=== PATIENT | female | born 1980 | race Caucasian/White ===

== ENCOUNTER → 2019-05-26 10:39 | Outpatient (CLI) | payer OTHER, SELFPAY ==
--- NOTE | 2019-05-26 10:46 | VDLE_ITS ---
Reason For Study: Swelling/Pain Procedure LEFT Exam performed in department. GSV is normal. A preliminary report was called and/or faxed CFV is compressible, spontaneous, phasic, to Estefany. competent, and demonstrates normal augmentation. FV is compressible, spontaneous, phasic, competent and demonstrates normal augmentation. POP V is compressible, spontaneous, phasic, competent and demonstrates normal augmentation. T/P Trunk is compressible. PTV is compressible. LT PerV is compressible. Interpretation Summary Deep veins of the left lower extremity are patent and compressible segmentally. There is no evidence of left lower extremity deep vein thrombosis. Valvular competence appears intact within the proximal deep venous system on the left . The left greater saphenous vein appears patent and compressible segmentally. Ordering Physician: Carson Allison Referring Physician: Maya Owens M.D. Performed By: Kandi Judge RVT
== END ==
PROVIDERS: Family Provider Internal Medicine; PCP Internal Medicine; Referring Provider Surgery; Visit Provider Surgery
DX: M79.89 Other specified soft tissue disorders (principal); M79.606 Pain in leg, unspecified
CPT/HCPCS: 93971

== ENCOUNTER → 2021-03-05 15:46 | Outpatient (CLI) | payer OTHER, SELFPAY ==
[2021-03-05 17:33] LABS: Absolute Lymphocyte Count 2.64 X10^3/uL (0.83-4.51); Basophil# 0.03 X10^3/uL; Basophil% 0.4 % (0-1); Eosinophil# 0.08 X10^3/uL; Eosinophils% 1.1 % (0-5); Lymphocyte # 2.64 X10^3/ul (0.83-4.51); Lymphocyte % 35.6 % (19-41); Mean Corp Hgb Conc 32.6 g/dL (32-36); Mean Corpuscular Volume 98.4 fL (81-99); Mean Platelet Vol. 12.2 fl (6.2-12.0); Monocyte# 0.65 X10^3/uL; Monocyte% 8.8 % (0-10); NRBC Flagged by Analyzer 0 % (0-5); Neutrophil % 53.8 % (47-70); Platelet Count 228 K/mm3 (150-450); RBC Distribution Width CV 12.9 % (11.6-14.6); RBC Distribution Width SD 46.5 fl (35.1-43.9); Red Blood Count 4.37 M/mm3 (4.2-5.4); White Blood Count 7.4 K/mm3 (4.4-11.0)
[2021-03-05 18:03] LABS: Valproic Acid (Depakene) Level 78 ug/mL (50-100)
[2021-03-05 18:07] LABS: AST(SGOT) 14 U/L (15-37); Alanine Aminotransfer ALT/SGPT 24 U/L (13-56); Albumin, Serum 3.9 g/dL (3.2-5.0); Alkaline Phosphatase 32 U/L (45-117); Bilirubin, Direct 0.19 mg/dL (0.00-0.30); Protein, Total 7.9 g/dL (6.4-8.2)
== END ==
PROVIDERS: PCP Internal Medicine; Referring Provider Psychiatry & Neurology Clinical Neurophysiology; Visit Provider Psychiatry & Neurology Clinical Neurophysiology
DX: G40.909 Epilepsy, unspecified, not intractable, without status epilepticus (principal)
CPT/HCPCS: 36415; 80076; 80164; 85025

== ENCOUNTER → 2022-02-19 | Outpatient (CLI) | payer OTHER, SELFPAY ==
[2022-02-19 13:37] LABS: Absolute Lymphocyte Count 2.75 X10^3/uL (0.83-4.51); Absolute Neutrophil Count 3.5 X10^3/uL (2.0-7.7); Basophil# 0.05 X10^3/uL; Basophil% 0.7 % (0-1); Eosinophil# 0.09 X10^3/uL; Eosinophils% 1.3 % (0-5); Hematocrit 42.5 % (37-47); Hemoglobin 14.2 g/dL (12.0-15.0); Lymphocyte # 2.75 X10^3/ul (0.83-4.51); Lymphocyte % 39.7 % (19-41); Mean Corp Hgb Conc 33.4 g/dL (32-36); Mean Corpuscular Hgb 32.9 pg (27.0-32.0); Mean Corpuscular Volume 98.6 fL (81-99); Mean Platelet Vol. 11.2 fl (6.2-12.0); Monocyte# 0.57 X10^3/uL; Monocyte% 8.2 % (0-10); NRBC Flagged by Analyzer 0 % (0-5); Neutrophil # 3.45 X10^3/uL (2.7-7.7); Neutrophil % 49.8 % (47-70); Platelet Count 241 K/mm3 (150-450); RBC Distribution Width CV 12.7 % (11.6-14.6); RBC Distribution Width SD 46.4 fl (35.1-43.9); Red Blood Count 4.31 M/mm3 (4.2-5.4); White Blood Count 6.9 K/mm3 (4.4-11.0)
[2022-02-19 14:05] LABS: AST(SGOT) 19 U/L (15-37); Alanine Aminotransfer ALT/SGPT 27 U/L (13-56); Albumin, Serum 3.6 g/dL (3.2-5.0); Alkaline Phosphatase 28 U/L (45-117); Bilirubin, Direct 0.18 mg/dL (0.00-0.30); Globulin 3.9 g/dL (2.2-4.2); Protein, Total 7.5 g/dL (6.4-8.2); Valproic Acid (Depakene) Level 89 ug/mL (50-100)
== END | disposition home or self-care (01) ==
PROVIDERS: PCP Internal Medicine; Visit Provider Psychiatry & Neurology Clinical Neurophysiology
DX: G40.909 Epilepsy, unspecified, not intractable, without status epilepticus (principal)
CPT/HCPCS: 36415; 80076; 80164; 85025

== ENCOUNTER → 2023-01-27 | Outpatient (CLI) | payer MEDICAID, SELFPAY ==
[2023-01-27 10:43] LABS: Hematocrit 44.8 % (37-47); Hemoglobin 14.7 g/dL (12.0-15.0); Mean Corp Hgb Conc 32.8 g/dL (32-36); Mean Corpuscular Hgb 32.6 pg (27.0-32.0); Mean Corpuscular Volume 99.3 fL (81-99); Mean Platelet Vol. 11.5 fl (6.2-12.0); Platelet Count 261 K/mm3 (150-450); RBC Distribution Width CV 13.2 % (11.6-14.6); RBC Distribution Width SD 48.8 fl (35.1-43.9); Red Blood Count 4.51 M/mm3 (4.2-5.4); White Blood Count 7.7 K/mm3 (4.4-11.0)
[2023-01-27 11:05] LABS: Valproic Acid (Depakene) Level 56 ug/mL (50-100)
[2023-01-27 11:07] LABS: ALB/GLOB Ratio 0.8 RATIO (0.9-2.4); AST(SGOT) 18 U/L (15-37); Alanine Aminotransfer ALT/SGPT 24 U/L (13-56); Albumin, Serum 3.6 g/dL (3.2-5.0); Alkaline Phosphatase 26 U/L (45-117); Anion Gap 2 (5-15); BUN 17 mg/dL (7-18); BUN/Creat Ratio 21.7 RATIO (10-20); Calcium,Total 9.4 mg/dL (8.5-10.1); Chloride 106 mmol/L (98-107); Creatinine, Serum 0.78 mg/dL (0.55-1.02); EST Glomerular Filtration Rate 85 mL/min (>60); Est Glom Filt Rate - Afr Amer 103 mL/min (>60); Globulin 4.3 g/dL (2.2-4.2); Glucose 93 mg/dL (74-106); Potassium 3.9 mmol/L (3.5-5.1); Protein, Total 7.9 g/dL (6.4-8.2); Sodium Level 139 mmol/L (136-145)
== END | disposition home or self-care (01) ==
LOC: LAB 10:07
PROVIDERS: PCP Internal Medicine; Referring Provider Psychiatry & Neurology Clinical Neurophysiology; Visit Provider Psychiatry & Neurology Clinical Neurophysiology
DX: G40.409 Other generalized epilepsy and epileptic syndromes, not intractable, without status epilepticus (principal)
CPT/HCPCS: 36415; 80053; 80164; 85027

== ENCOUNTER 2023-02-01 17:42 | Emergency (ER) | payer MEDICAID, SELFPAY ==
[2023-02-01 17:43] VITALS: BP 138/110; PULSE 106; RESP 18; TEMP 36.7; O2SAT 100; BMI 20.5
--- NOTE | 2023-02-01 18:21 | CT_ITS ---
STUDY: CT ABDOMEN AND PELVIS WITHOUT CONTRAST REASON FOR EXAM: Female, 42 years old. flank pain RADIATION DOSAGE (If Supplied By Facility): CTDIvol = ( 6.15 ) mGy, DLP = ( 312.07 ) mGycm TECHNIQUE: Transaxial images were obtained from the dome of the diaphragm to the symphysis pubis without oral contrast, and without intravenous contrast. Sagittal and coronal images were reconstructed. Individualized dose optimization techniques were used for this CT. COMPARISON: 06/21/2012 CT abdomen and pelvis FINDINGS: The visualized lung bases are unremarkable. The visualized portions of the heart are within normal limits. Normal liver. Gallbladder not identified. Normal spleen. Normal pancreas. Normal bilateral adrenal glands. Normal right kidney. Normal left kidney. Normal visualized stomach. Normal small intestine. Normal colon. The appendix is visualized and appears normal. Normal abdominal aorta. Normal inferior vena cava. Normal retroperitoneum. Bladder is decompressed with a Waggoner catheter. Normal abdominal wall. Normal osseous structures. CT/Abdomen/Pelvis without Cont IMPRESSION: No radiodense urolithiasis noted. Electronically Signed: Moe Coulter MD at 20:37 EDT Reading Location ID and State: [address] [place] [address] , Service support ,
--- NOTE | 2023-02-01 18:22 | EX.ED.DYSGE1 ---
HPI History of Present Illness Chief Complaint: Complaint Informant: patient Onset/Context/Timing Onset: Yesterday Narrative Narrative: Patient presents secondary to urinary symptoms and unable to urinate. She states yesterday she had burning with urination. She was seen by a foster care social worker who sent her urine for culture and she was given Azo. Today she states she has pain in her low back and is unable to urinate. No fever or chills. [facility] Medical History (Updated 02/01/23 @ 21:[address] Gala Hernandez MD) Epilepsy Home Medications benzonatate 200 mg capsule 200 mg PO TID PRN cough #20 caps 08/05/22 [Rx Last Taken Unknown] sulfamethoxazole 800 mg-trimethoprim 160 mg tablet (Bactrim DS) 1 tab PO BID #6 tabs 02/01/23 [Rx Last Taken Unknown] Allergy/AdvReac Type Severity Reaction Status Date / Time azithromycin Allergy Other Verified 02/01/23 17:45 [From Zithromax Z-Gadiel] metoclopramide HCl Allergy Other Verified 02/01/23 17:45 [From Reglan] mold Allergy Other Verified 02/01/23 17:45 clavulanic acid AdvReac Nausea/Vom/ Verified 02/01/23 17:45 [From Augmentin] Diarrhea codeine AdvReac Nausea/Vom/ Verified 02/01/23 17:45 Diarrhea Surgical History H/O tubal ligation Social History Smoking Status: Never smoker ROS ROS ED Constitutional Constitutional ED: Denies chills or fever(s) Eyes Eyes: Denies change in vision or discharge from eye(s) ENT ENT ED: Denies discharge from eye(s), rhinorrhea or sore throat Cardiovascular Cardiovascular: Denies chest pain or palpitations Respiratory/Chest Respiratory/Chest: Denies cough or dyspnea Gastrointestinal Gastrointestinal: Reports abdominal pain; Denies diarrhea, nausea or vomiting Genitourinary Genitourinary ED: Reports difficulty urinating and dysuria Musculoskeletal Musculoskeletal: Reports back pain; Denies extremity pain Integumentary Denies Abrasions or rash Neurologic Neurologic: Denies headache(s) or weakness Psychiatric Psychiatric: Denies anxiety or depression Allergic/Immunologic Allergic/Immunologic ED: Denies lip swelling or urticaria EXAM Physical Exam Const Vital Signs: 02/01/23 17:43 Temperature 98.1 F Temperature Source Temporal Pulse Rate 106 H Respiratory Rate 18 Blood Pressure 138/110 H Blood Pressure Mean 119 Pulse Ox 100 Oxygen Delivery Method Room Air Positive well nourished and well developed General Appearance ED: well developed HEENT Reports normocephalic and head/scalp atraumatic Eyes PERRL and EOMs intact bilaterally Neck supple Chest Wall inspection of chest normal and palpation of chest normal Resp normal respiratory effort and clear to auscultation bilaterally Cardio regular rate and regular rhythm GI GI Narrative: Suprapubic tenderness to palpation. Palpation: soft Extremity normal to inspection Neuro oriented x3 and no sensory deficits noted Sensorium / Orientation: alert Motor Exam: strength 5/5 throughout Psych Mood & Affect: anxious Skin no rashes or lesions noted MDM MDM MDM Narrative Medical decision making narrative: Waggoner catheter was placed by nursing staff due to concern for urinary retention. Nursing staff states he only got 100 220 cc of urine out. Labwork obtained to evaluate for leukocytosis, anemia, and electrolyte derangement. Urinalysis obtained to evaluate for infection/hematuria. CT flank obtained to evaluate for pyelonephritis or kidney stone. Patient was given Toradol for pain. Lab Data Attestation: I reviewed the patient's lab results. Labs: Laboratory Results - last 24 hr 02/01/23 02/01/23 02/01/23 06:50 06:50 06:50 WBC 11.0 RBC 4.30 Hgb 14.0 Hct 41.5 MCV 96.5 MCH 32.6 H MCHC 33.7 RDW Std Deviation 46.7 H RDW Coeff of David 13.2 Plt Count 248 MPV 11.6 Immature Gran % (Auto) 0.500 Neut % (Auto) 61.6 Lymph % (Auto) 26.4 Bledsoe % (Auto) 10.2 H Eos % (Auto) 0.8 Baso % (Auto) 0.5 Absolute Neuts (auto) 6.8 Absolute Lymphs (auto) 2.90 Nucleated RBC % 0 Sodium 138 Potassium 3.5 Chloride 103 Carbon Dioxide 26.0 Anion Gap 9 BUN 15 Creatinine 0.80 Estim Creat Clear Calc 86.20 Est GFR (MDRD) Af Amer 101 Est GFR (MDRD) Non-Af 83 BUN/Creatinine Ratio 18.8 Glucose 101 Calcium 9.7 Serum , Qual NEGATIVE Urine Color Urine Clarity Urine pH Ur Specific Bern Urine Protein Urine Glucose (UA) Urine Ketones Urine Occult Blood Urine Nitrite Urine Bilirubin Urine Urobilinogen Ur Leukocyte Esterase Urine RBC Urine WBC Ur Squamous Epith Cells Urine Bacteria Urine Mucus 02/01/23 18:35 WBC RBC Hgb Hct MCV MCH MCHC RDW Std Deviation RDW Coeff of David Plt Count MPV Immature Gran % (Auto) Neut % (Auto) Lymph % (Auto) Bledsoe % (Auto) Eos % (Auto) Baso % (Auto) Absolute Neuts (auto) Absolute Lymphs (auto) Nucleated RBC % Sodium Potassium Chloride Carbon Dioxide Anion Gap BUN Creatinine Estim Creat Clear Calc Est GFR (MDRD) Af Amer Est GFR (MDRD) Non-Af BUN/Creatinine Ratio Glucose Calcium Serum , Qual Urine Color Yellow Urine Clarity Sl. Cloudy Urine pH 8.0 Ur Specific Bern 1.015 Urine Protein 30 H Urine Glucose (UA) Normal Urine Ketones Negative Urine Occult Blood 50 H Urine Nitrite Negative Urine Bilirubin Negative Urine Urobilinogen Normal Ur Leukocyte Esterase 100 H Urine RBC 0-5 SEEN Urine WBC 10-25 SEEN Ur Squamous Epith Cells 0 SEEN Urine Bacteria 1+ Urine Mucus 0 SEEN Radiography Diagnostic Testing: Clinical Impression(s) from Imaging Studies Abdomen/Pelvis CT 02/01/23 18:21 IMPRESSION: No radiodense urolithiasis noted. Electronically Signed: Moe Coulter MD at 20:37 EDT Reading Location ID and State: [address] [place] [address] , Service support , Treatment and Re-Evaluation :: CBC and chemistry studies are unremarkable. Renal function is normal. test negative. Urinalysis does reveal infection with 10-25 white cells and 1+ bacteria. CT flank reveals no acute findings. Test results are discussed with the patient. Waggoner catheter will be removed. We will treat her with a 3-day course of Bactrim, first dose given here. She was advised that if she develops urinary retention she may need to return for a Waggoner catheter. She voices understanding and agreement. Discharge Plan Triage Chief Complaint: Complaint ED Provider: Gala Hernandez Dx/Rx/DC Orders Clinical Impression: UTI (urinary tract infection) Instructions: ED Cystitis Female Adult Prescriptions: New sulfamethoxazole-trimethoprim [Bactrim DS] 800-160 mg tablet 1 tab PO BID Qty: 6 0RF No Action benzonatate 200 mg capsule 200 mg PO TID PRN (Reason: cough) Qty: 20 0RF Primary Care Provider: Maya Owens Referrals: Maya Owens MD [Primary Care Provider] - 1 Week Disposition Disposition: Home, Self Care
[2023-02-01 18:41] LABS: Mucous, Urine 0 SEEN /hpf (<or=2+); Squamous Epithelial Cells - UA 0 SEEN /hpf (5-10)
[2023-02-01 18:45] LABS: Color, Urine Yellow (Yellow); Glucose, Dipstick Normal (Normal); Ketone-Dipstick Negative (Negative); Leukocyte Esterase-Dipstick 100 /ul (Negative); Nitrite-Dipstick Negative (Negative); Occult Blood-Urine 50 /ul (Negative); Protein-Dipstick 30 mg/dl (Negative); Specific Gravity, Urine 1.015 (1.002-1.030); Urine Bilirubin Dipstick Negative (Negative); Urine Clarity Sl. Cloudy (Clear); Urine Urobilinogen Normal (Normal)
[2023-02-01] MEDS: Ketorolac 30 MG/ML Syringe IV (18:51)
[2023-02-01] MEDS: 0.9% Normal Saline 1,000 ML 150 ML IV (18:52)
[2023-02-01 18:53] LABS: Bacteria 1+ /hpf (None Seen); Red Blood Cells-Urine 0-5 SEEN /hpf (0-5); White Blood Cells 10-25 SEEN /hpf (0-5)
[2023-02-01 19:07] LABS: Absolute Neutrophil Count 6.8 X10^3/uL (2.0-7.7); Basophil# 0.06 X10^3/uL; Basophil% 0.5 % (0-1); Eosinophil# 0.09 X10^3/uL; Eosinophils% 0.8 % (0-5); Hematocrit 41.5 % (37-47); Lymphocyte % 26.4 % (19-41); Mean Corp Hgb Conc 33.7 g/dL (32-36); Mean Corpuscular Hgb 32.6 pg (27.0-32.0); Mean Corpuscular Volume 96.5 fL (81-99); Mean Platelet Vol. 11.6 fl (6.2-12.0); Monocyte# 1.12 X10^3/uL; Monocyte% 10.2 % (0-10); NRBC Flagged by Analyzer 0 % (0-5); Neutrophil # 6.77 X10^3/uL (2.7-7.7); Neutrophil % 61.6 % (47-70); Platelet Count 248 K/mm3 (150-450); RBC Distribution Width CV 13.2 % (11.6-14.6); RBC Distribution Width SD 46.7 fl (35.1-43.9)
[2023-02-01 19:27] LABS: Anion Gap 9 (5-15); BUN 15 mg/dL (7-18); BUN/Creat Ratio 18.8 RATIO (10-20); Calcium,Total 9.7 mg/dL (8.5-10.1); Chloride 103 mmol/L (98-107); EST Glomerular Filtration Rate 83 mL/min (>60); Est Glom Filt Rate - Afr Amer 101 mL/min (>60); Glucose 101 mg/dL (74-106); Potassium 3.5 mmol/L (3.5-5.1); Sodium Level 138 mmol/L (136-145)
[2023-02-01 19:30] LABS: Internal QC Validated? YES +Cl - CLEAR BKGD; Pregnancy, Serum, hCG Quali. NEGATIVE Negative
[2023-02-01 19:42] VITALS: RESP 16
[2023-02-01 21:42] VITALS: BP 127/83
[2023-02-01] MEDS: Smz/Tmp Ds Tablet 1 TABLET PO (21:46)
== END 2023-02-01 21:58 | disposition home or self-care (01) ==
PROVIDERS: Emergency Provider Emergency Medicine; PCP Internal Medicine; Visit Provider Emergency Medicine
DX: N39.0 Urinary tract infection, site not specified (principal); R30.0 Dysuria
CPT/HCPCS: 74176; 80048; 81001; 84703; 85025; 87077; 87086; 87088; 87186; 96361; 96374; 99284; J7030

== ENCOUNTER → 2023-05-27 | Outpatient (CLI) | payer MEDICAID, SELFPAY ==
[2023-05-30 21:07] LABS: Clam <0.10 kU/L (Class 0); Codfish <0.10 kU/L (Class 0); Corn <0.10 kU/L (Class 0); Egg, White <0.10 kU/L (Class 0); Milk (Cow) 0.22 kU/L (Class 0/I); Peanut <0.10 kU/L (Class 0); SCALLOP <0.10 kU/L (Class 0); SESAME SEED <0.10 kU/L (Class 0); Shrimp <0.10 kU/L (Class 0); Soybean <0.10 kU/L (Class 0); Tomato <0.10 kU/L (Class 0); Walnut, (Food) <0.10 kU/L (Class 0); Wheat <0.10 kU/L (Class 0)
== END | disposition home or self-care (01) ==
PROVIDERS: PCP Internal Medicine; Referring Provider Otolaryngology; Visit Provider Otolaryngology
DX: T78.40XA Allergy, unspecified, initial encounter (principal); X58.XXXA Exposure to other specified factors, initial encounter
CPT/HCPCS: 36415; 86003

== ENCOUNTER 2023-11-13 06:49 | Day surgery (SDC) | payer MEDICAID, SELFPAY ==
--- NOTE | 2023-11-11 13:58 | PCM.HP.BLA ---
History and Physical Date of Admission: 11/13/23 Pre-Op History and Physical ? HPI: The patient is a 43 year old female presenting for pre-operative visit. She is scheduled for Hysteroscopy D&C and polypectomy with endometrial ablation, for AUB, endometrial polyps on 11/13/23. Procedure discussed along with risks, benefits and complications. Other alternatives discussed for management. Consent form signed? Yes. ? ? PAST MEDICAL HISTORY PAST MEDICAL HISTORY Diagnosis Date ? Abdominal pain, unspecified site ? ? Acute pharyngitis ? ? Dysthymic disorder ? ? depression/anxiety ? [place] mal seizures 1987 ? Dr. Cagle (neurologist)--[place] ? Unspecified constipation ? ? ? PAST SURGICAL HISTORY PAST SURGICAL HISTORY Procedure Laterality Date ? ANORECTAL MANOMETRY ? 10/14/2022 ? APPENDECTOMY ? 03/26/2012 ? [facility] ? COLONOSCOPY SCREENING ? 02/22/2021 ? Tubular adenoma ? EGD W/O [facility] SPEC VARICIES INJ ? 02/22/2021 ? Normal ? ESOPHAGOGASTRODUODENOSCOPY TRANSORAL DIAGNOSTIC ? 01/26/2013 ? EGD ? LAPAROSCOPY DIAGNOSTIC ? 03/04/2011 ? mild endometriosis, Dr Li, [facility] ? LAPS SURG CHOLECYSTECTOMY W/CHOLANGIOGRAPHY ? 06/29/2010 ? PAST SURGICAL HISTORY OF ? ? ? wisdom teeth x 4 ? PAST SURGICAL HISTORY OF ? age 25 ? cataract surgery bilateral ? PAST SURGICAL HISTORY OF ? ? ? abnormal cells on cervix ? PAST SURGICAL HISTORY OF ? 6 mos old ? tubes put in ears ? SALPINGECTOMY ? 10/2017 ? Laparoscopic B/l salpingectomy ? ? ? CURRENT MEDICATIONS Current Outpatient Medications Medication Sig Dispense Refill ? MULTIVITAMIN ORAL Take by mouth. ? ? ? divalproex DR (DEPAKOTE) 250 mg EC tablet 2 TABLETS (500 MG ) IN THE AM and 1 tablet (250mg) at night. ? fluticasone (FLONASE) 50 mcg/actuation nasal spray Use 2 Sprays in each nostril once daily. Rinse mouth after use. For nasal congestion and drainage (Patient not taking: Reported on 10/23/2023) 1 Each 0 ? dextromethorphan-guaiFENesin 5-50 mg/5 mL liqd Take 10-20 mL by mouth four times a day as needed. for cough (Patient not taking: Reported on 10/23/2023) 118 mL 1 ? phenazopyridine (PYRIDIUM) 200 mg tablet Take 1 tablet by mouth three times daily as needed. (Patient not taking: Reported on 05/08/2023) 9 tablet 0 ? divalproex DR (DEPAKOTE) 250 mg EC tablet Take 250 mg by mouth twice daily. (Patient not taking: Reported on 10/23/2023) ? ? ? No current facility-administered medications for this visit. ? ? ALLERGIES: Augmentin [Amoxicillin-Pot Clavulanate], Codeine, Latex, Mold, and Z Gadiel [Azithromycin] ? PERSONAL HISTORY: SOCIAL HISTORY Social History ? Tobacco Use ? Smoking status: Never ? Smokeless tobacco: Never Vaping Use ? Vaping Use: Never used Substance Use Topics ? Alcohol use: No ? Drug use: No ? FAMILY HISTORY: FAMILY HISTORY FAMILY HISTORY Problem Relation Age of Onset ? Diabetes Mother ? ? Anxiety disorder Mother ? ? Heart Father ? ? A Fib ? Heart Attack Father ? ? other (Bladder cancer) Father ? ? No Known Problems Sister ? ? No Known Problems Sister ? ? Cancer Maternal Uncle ? ? stomach ? Ischemic Heart Disease Maternal Uncle ? ? Hypertension Maternal Uncle ? ? Colon Cancer No Family History ? ? ? REVIEW OF SYMPTOMS: negative except as noted above PHYSICAL EXAMINATION: ? VITALS: Blood pressure 102/64, weight 137 lb (62.1 kg), last menstrual period 10/03/2023. ? GENERAL: The patient is well nourished, well hydrated in no acute distress. , The patient is oriented to time, place, and person. NECK: full range of motion ? ? IMPRESSION: 43yo with AUB, endometrial polys, h/o Endometriosis seen at time of salpingectomy ? PLAN: hysteroscopy, D&C, polypectomy, Venecia endometrial ablation. ? Pt has been counseled on risks/benefits and alternatives of surgery including but not limited to anesthesia, bleeding, infection, uterine perforation with subsequent injury to pelvic structures including bowel, bladder, ureters and vessels. Pt wishes to proceed with surgery at this time. ? Discussed with endometriosis recommend Hormonal suppression with IUD or oral etc- pt declining. Discussed if pain at later date would encourage hormonal suppression. ? Pre and post op instructions reviewed ? I have reviewed and updated past medical and surgical history, medications and allergies Ada Salas MD Office Visit on 11/05/2023 Office Visit on 11/05/2023 Note shared with patient
[2023-11-13] VITALS (9 sets, daily range): BP systolic 82–103; BP diastolic 52–71; PULSE 64–85; RESP 16–18; TEMP 36.2–37.1; O2SAT 94–100; BMI 21.9
--- OUTSIDE RECORDS SUMMARY | 2023-11-13 06:56 | XMS RPT_ITS | CCD ---
Author Name Unknown Address [address] [place] [address] Organization [facility] Care Team Providers Care Voice Engineer Name Role Phone Mirella Zendejas MD Primary Care Provider TALAMPAS, MIRELLA D Primary Care Unavailable TALAMPAS, MIRELLA D Primary Care Unavailable ADA GALVAN Attending Unavail able TALAMPAS, MIRELLA D Primary Care Unavailable DINAH HAMILTON Attending Unavailable BLANCHE LEON Referring Unavailable TALAMPAS, MIRELLA D Primary Care Unavailable TALAMPAS, MIRELLA D Primary Care Unavailable RUDY PARISH Attending Unavailable TALAMPAS, MIRELLA D Primary Care Unavailable ADA GALVAN Attending Unavail able TALAMPAS, MIRELLA D Primary Care Unavailable ELBA, SHIRA Referring Unavailable TALAMPAS, MIRELLA D Primary Care Unavailable RUDY PARISH Attending Unavailable TALAMPAS, MIRELLA D Primary Care Unavailable ABIEL BARBOSA Attending Unavailable RUDY PARISH Referring Unavailable TALAMPAS, MIRELLA D Primary Care Unavailable VANDANA JANE Referring Unavailable TALAMPAS, MIRELLA D Primary Care Unavailable ADA GALVAN Referring Unavail able TALAMPAS, MIRELLA D Primary Care Unavailable GEMA CASAS Attending Unavailable TALAMPAS, MIRELLA D Primary Care Unavailable ADA GALVAN Attending Unavail able ADA GALVAN Attending Unavail able TALAMPAS, MIRELLA D Primary Care Unavailable TALAMPAS, MIRELLA D Primary Care Unavailable MARI ANDINO Attending Unavailable TALAMPAS, MIRELLA D Primary Care Unavailable ELBA, SHIRA Attending Unavailable TALAMPAS, MIRELLA D Primary Care Unavailable ELBA, SHIRA Referring Unavailable TALAMPAS, MIRELLA D Primary Care Unavailable DINAH HAMILTON Referring Unavailable TALAMPAS, MIRELLA D Primary Care Unavailable ELBA, SHIRA Referring Unavailable RAMON ARREOLAEE Attending Unavailable TALAMPAS, MIRELLA D Primary Care Unavailable RUDY PARISH Attending Unavailable TALAMPAS, MIRELLA D Primary Care Unavailable MARAH, RUDY Referring Unavailable TALAMPAS, MIRELLA D Primary Care Unavailable MARAH, RUDY Referring Unavailable Allergies Allergy Classification Reported Allergen(s) Allergy Type Date of Onset Reaction(s) Facility (20 sources) Amoxicillin / Clavulanate; Translations: [AMOXICILLIN-POT CLAVULANATE] Drug Allergy 12-11-2015 GI Upset [facility] (20 sources) Azithromycin; Translations: [AZITHROMYCIN] Drug Allergy 09-16-2015 Other: See Comments [facility] (20 sources) Codeine; Translations: [CODEINE] Drug Allergy 02-04-2013 Vomiting [facility] Work Phone: (20 sources) Latex; Translations: [LATEX] Drug Allergy 06-21-2020 Rash [facility] (20 sources) Mold Extract; Translations: [MOLD] Drug Allergy 09-12-2010 Unknown [facility] Medications Current Medications Medication Drug Class(es) Dates Sig (Normalized) Sig (Original) amoxicillin 500 mg oral capsule (3 sources) Penicillin-class Antibacterial Start: 04-16-2023 End: 04-23-2023 amoxicillin (AMOXIL) 500 mg capsule Take 1 capsule by mouth three times daily for 7 days. FOR 7 DAYS. 21 capsule 0 04/16/2023 04/23/2023 Active Completed/Discontinued Medications Medication Drug Class(es) Dates Sig (Normalized) Sig (Original) benzonatate 100 mg oral capsule (3 sources) Non-narcotic Antitussive Start: 10-03-2023 End: 10-13-2023 take 2 capsules by mouth three times daily as needed benzonatate (TESSALON PERLE) 100 mg capsule Indications: Sinobronchitis Take 2 capsules by mouth three times a day as needed for up to 10 days. 60 capsule 0 10/03/2023 10/07/2023 Discontinued Problems Active Problems Problem Classification Problem Date Documented Da te Episodic/Chronic Epilepsy; convulsions (20 sources) Seizure disorder; Translations: [Epilepsy, unspecified, not intractable, without status epilepticus] Onset: 07-13-2010 07-13-2010 Chronic Menstrual disorders (1 source) Menometrorrhagia; Translations: [Excessive and frequent menstruation with irregular cycle] 05-07-2023 Chronic Mood disorders (20 sources) Dysthymia; Translations: [Dysthymic disorder] 10-22-2021 Chronic Nausea and vomiting (2 sources) Nausea; Translations: [Nausea] Episodic Nephritis; nephrosis; renal sclerosis (1 source) Isolated proteinuria with specified morphological lesion; Translations: [Isolated proteinuria with unspecified morphologic lesion] Chronic Nonmalignant breast conditions (1 source) Breast finding ; Translations: [Dense breast tissue] 06-09-2023 Episodic Other female genital disorders (1 source) Abnormal uterine bleeding; Translations: [Abnormal uterine and vaginal bleeding, unspecified] 05-07-2023 Chronic Other female genital disorders (1 source) Vaginal odor; Translations: [Other specified noninflammatory disorders of vagina] Episodic Other female genital disorders (1 source) Pruritus of vagina; Translations: [Other specified noninflammatory disorders of vagina] Episodic Other female genital disorders (1 source) Lesion of vulva; Translations: [Other specified noninflammatory disorders of vulva and perineum] Episodic Other female genital disorders (1 source) Polyp of corpus uteri; Translations: [Polyp of corpus uteri] 05-07-2023 Episodic Other gastrointestinal disorders (20 sources) Irritable bowel syndrome; Translations: [Irritable bowel syndrome without diarrhea] Onset: 11-24-2008 11-24-2008 Chronic Other gastrointestinal disorders (6 sources) Diarrhea; Translations: [Diarrhea, unspecified] Episodic Other gastrointestinal disorders (2 sources) Smearing feces; Translations: [Fecal smearing] Episodic Other gastrointestinal disorders (3 sources) Loose stool; Translations: [Other fecal abnormalities] Episodic Other gastrointestinal disorders (1 source) Bloating symptom; Translations: [Abdominal distension (gaseous)] Episodic Other lower respiratory disease (2 sources) Cough; Translations: [Acute cough] 10-03-2023 Episodic Other skin disorders (1 source) Skin lesion; Translations: [Disorder of the skin and subcutaneous tissue, unspecified] Episodic Other skin disorders (1 source) Superficial folliculitis; Translations: [Follicular disorder, unspecified] Episodic Other upper respiratory disease (1 source) Congestion of nasal sinus; Translations: [Nasal congestion] 10-07-2023 Episodic Other upper respiratory infections (1 source) Chronic sinusitis; Translations: [Chronic sinusitis, unspecified] 10-03-2023 Chronic Other upper respiratory infections (1 source) Sore throat symptom; Translations: [Acute pharyngitis, unspecified] 10-07-2023 Episodic Skin and subcutaneous tissue infections (1 source) Furuncle of groin; Translations: [Furuncle of groin] Episodic Unclassified (1 source) Acute cough; Translations: [Acute cough] Onset: 10-03-2023 Past or Other Problems Problem Classification Problem Date Documented Da te Episodic/Chronic Abdominal pain (20 sources) Abdominal pain; Translations: [Unspecified abdominal pain] Onset: 04-05-2008 11-24-2008 Episodic Cardiac dysrhythmias (20 sources) Palpitations; Translations: [Palpitations] Onset: 01-29-2012 10-22-2021 Episodic Genitourinary symptoms and ill-defined conditions (20 sources) Blood in urine; Translations: [Hematuria, unspecified] Onset: 10-16-2020 10-16-2020 Episodic Headache; including migraine (20 sources) Chronic daily headache; Translations: [Chronic daily headache] Onset: 07-13-2010 07-13-2010 Episodic Other connective tissue disease (20 sources) Female pelvic floor dysfunction; Translations: [Other specified disorders of muscle] Onset: 10-25-2022 Episodic Other female genital disorders (1 source) Other specified noninflammatory disorders of vagina; Translations: [Vaginal odor] Onset: 01-31-2023 Episodic Other gastrointestinal disorders (20 sources) Constipation; Translations: [Constipation, unspecified] Onset: 04-05-2008 11-24-2008 Episodic Other gastrointestinal disorders (20 sources) Complete fecal incontinence; Translations: [Full incontinence of feces] Onset: 10-25-2022 Episodic Other gastrointestinal disorders (1 source) Other fecal abnormalities; Translations: [Loose stools] Onset: 12-13-2022 Episodic Other screening for suspected conditions (not mental disorders or infectious disease) (5 sources) Patient encounter status; Translations: [Encounter for screening mammogram for malignant neoplasm of breast] Onset: 06-09-2023 Episodic Other skin disorders (20 sources) Eruption; Translations: [Rash and other nonspecific skin eruption] Onset: 04-05-2008 11-24-2008 Episodic Ovarian cyst (4 sources) Cyst of left ovary; Translations: [Unspecified ovarian cyst, left side] Onset: 01-31-2023 Episodic Results Test Name Value Interpretation Reference Range Facil ity Vital Signs Date Time Vital Sign Value Performing Clinician Gerardo obrien 10-07-2023 10:38-0500 Body weight 63.5 kg Gema Casas [employer].FORM SETTER Work Phone: [facility] 10-07-2023 10:38-0500 Diastolic blood pressure 71 mm[Hg] Gema Casas [employer].FORM SETTER Work Phone: [facility] 10-07-2023 10:38-0500 Heart rate 109 /min Gema Casas [employer].FORM SETTER Work Phone: [facility] 10-07-2023 10:38-0500 Respiratory rate 16 /min Gema Casas [employer].FORM SETTER Work Phone: [facility] 10-07-2023 10:38-0500 Systolic blood pressure 110 mm[Hg] Gema Casas [employer].FORM SETTER Work Phone: [facility] 10-03-2023 07:32-0500 Body temperature 97.59 [degF] Vandana Praisler-Wood [employer].KIDS ACTIVITIES COACH Work Phone: [facility] 10-03-2023 07:32-0500 Body weight 62.6 kg Vandana Praisler-Wood [employer].KIDS ACTIVITIES COACH Work Phone: [facility] 10-03-2023 07:32-0500 Diastolic blood pressure 87 mm[Hg] Vandana Praisler-Wood [employer].KIDS ACTIVITIES COACH Work Phone: [facility] 10-03-2023 07:32-0500 Heart rate 90 /min Vandana Praisler-Wood [employer].KIDS ACTIVITIES COACH Work Phone: [facility] 10-03-2023 07:32-0500 Respiratory rate 20 /min Vandana Praisler-Wood [employer].KIDS ACTIVITIES COACH Work Phone: [facility] 10-03-2023 07:32-0500 SaO2% (BldA) [Mass fraction] 100 % Vandana Praisler-Wood [employer].KIDS ACTIVITIES COACH Work Phone: [facility] 10-03-2023 07:32-0500 Systolic blood pressure 117 mm[Hg] Vandana Praisler-Wood [employer].KIDS ACTIVITIES COACH Work Phone: [facility] 05-07-2023 08:46-0400 Body weight 60.78 kg Ada Feliciano MD Work Phone: [facility] 05-07-2023 08:46-0400 Diastolic blood pressure 62 mm[Hg] Ada Feliciano MD Work Phone: [facility] 05-07-2023 08:46-0400 Systolic blood pressure 100 mm[Hg] Ada Feliciano MD Work Phone: [facility] 04-22-2023 08:51-0400 Body weight 60.06 kg Shira [place]ville [employer].KIDS ACTIVITIES COACH Work Phone: [facility] 04-22-2023 08:51-0400 Diastolic blood pressure 70 mm[Hg] Shira Elba [employer].KIDS ACTIVITIES COACH Work Phone: [facility] 04-22-2023 08:51-0400 Systolic blood pressure 102 mm[Hg] Shira Elba [employer].KIDS ACTIVITIES COACH Work Phone: [facility] 01-31-2023 08:54-0400 Body weight 59.01 kg Ada Feliciano MD Work Phone: [facility] 01-31-2023 08:54-0400 Diastolic blood pressure 60 mm[Hg] Ada Feliciano MD Work Phone: [facility] 01-31-2023 08:54-0400 Systolic blood pressure 104 mm[Hg] Ada Feliciano MD Work Phone: [facility] 11-12-2022 11:39-0500 Body height 170.2 cm Dinah Hamilton PA-C Work Phone: [facility] 11-12-2022 11:39-0500 Body weight 58.74 kg Dinah Kalka PA-C Work Phone: [facility] 11-12-2022 11:39-0500 Diastolic blood pressure 72 mm[Hg] Dinah Kalka PA-C Work Phone: [facility] 11-12-2022 11:39-0500 Heart rate 85 /min Dinah Kalka PA-C Work Phone: [facility] 11-12-2022 11:39-0500 Systolic blood pressure 114 mm[Hg] Dinah Kalka PA-C Work Phone: [facility] 10-25-2022 10:00-0500 Diastolic blood pressure 76 mm[Hg] Abiel Velarde PT Work Phone: [facility] 10-25-2022 10:00-0500 Systolic blood pressure 112 mm[Hg] Abiel Velarde PT Work Phone: [facility] 10-04-2022 09:02-0500 Body height 170.2 cm Dinah Kalka PA-C Work Phone: [facility] 10-04-2022 09:02-0500 Body weight 57.61 kg Dinah Kalka PA-C Work Phone: [facility] 10-04-2022 09:02-0500 Diastolic blood pressure 72 mm[Hg] Dinah Kalka PA-C Work Phone: [facility] 10-04-2022 09:02-0500 Heart rate 98 /min Dinah Kalka PA-C Work Phone: [facility] 10-04-2022 09:02-0500 Systolic blood pressure 108 mm[Hg] Dinah Kalka PA-C Work Phone: [facility] 09-18-2022 10:47-0500 Body weight 58.06 kg Ada Feliciano MD Work Phone: [facility] 09-18-2022 10:47-0500 Diastolic blood pressure 62 mm[Hg] Ada Feliciano MD Work Phone: [facility] 09-18-2022 10:47-0500 Systolic blood pressure 110 mm[Hg] Ada Feliciano MD Work Phone: [facility] 08-21-2022 15:05-0400 Body weight 59.15 kg Melanie Zurawick [employer].KIDS ACTIVITIES COACH Work Phone: [facility] 08-21-2022 15:05-0400 Diastolic blood pressure 64 mm[Hg] Melanie Zurawick [employer].KIDS ACTIVITIES COACH Work Phone: [facility] 08-21-2022 15:05-0400 Heart rate 60 /min Melanie Zurawick [employer].KIDS ACTIVITIES COACH Work Phone: [facility] 08-21-2022 15:05-0400 Respiratory rate 14 /min Melanie Zurawick [employer].KIDS ACTIVITIES COACH Work Phone: [facility] 08-21-2022 15:05-0400 Systolic blood pressure 112 mm[Hg] Melanie Zurawick [employer].KIDS ACTIVITIES COACH Work Phone: [facility] 07-29-2022 15:52-0400 Body weight 60.78 kg Ada Feliciano MD Work Phone: [facility] 07-29-2022 15:52-0400 Diastolic blood pressure 62 mm[Hg] Ada Feliciano MD Work Phone: [facility] 07-29-2022 15:52-0400 Systolic blood pressure 102 mm[Hg] Ada Feliciano MD Work Phone: [facility] Encounters Encounter Date Encounter Type Care Provider Facility Start: 11-05-2023 End: 11-05-2023 ambulatory ADA FELICIANO Facility:[facility] Start: 10-23-2023 End: 10-23-2023 ambulatory MIRELLA ZENDEJAS Facility:[facility] Start: 10-07-2023 End: 10-07-2023 ambulatory [facility] Facility:[facility] Start: 10-07-2023 End: 10-07-2023 Office outpatient visit 15 minutes Gema Chases [employer].FORM SETTER Work Phone: [facility] Procedures Date Procedure Procedure Detail Performing Clinician Start: 06-09-2023 End: 06-09-2023 Mammography Shira Elba [employer].KIDS ACTIVITIES COACH Work Phone: Start: 04-28-2023 Us pelvic nonobstetric real-time image complete Shira [place]ville [employer].KIDS ACTIVITIES COACH Work Phone: Start: 01-14-2023 Ct abdomen & pelvis w/contrast material Rudy Parish [employer].KIDS ACTIVITIES COACH Work Phone: Start: 12-13-2022 Breath hydrogen/methane test Dinah Hamilton PA-C Work Phone: Start: 11-14-2022 Gastric emptying imaging study Dinah Hamilton PA-C Work Phone: Start: 10-14-2022 ADULT [place] [facility]ET[facility] Dinah Hamilton PA-C Work Phone: Start: 09-24-2022 Us pelvic nonobstetric real-time image complete Ada Feliciano MD Work Phone: Start: 09-18-2022 Urnls dip stick/tablet rgnt auto w/o microscopy Ada Feliciano MD Work Phone: Start: 09-17-2022 Ct abdomen & pelvis w/contrast material Melanie Santa [employer].KIDS ACTIVITIES COACH Work Phone: Start: 02-12-2022 SURGICAL PATHOLOGY Carson Allison MD Work Phone: Start: 05-15-2020 Mammography Carson Allison MD Work Phone: History of cholecystectomy Status post cholecystectomy Dinah Hamilton PA-C Work Phone: Plan of Treatment Date Care Activity Detail Author Start: 05-08-2028 HPV TESTING HPV TESTING [facility] Start: 05-08-2028 PAP TESTING PAP TESTING [facility] Start: 05-08-2028 Screening for malign ant neoplasm of cervix [facility] Start: 06-09-2024 Mammography [facility] Start: 06-09-2024 Screening for malign ant neoplasm of breast Mammogram Screening [facility] Start: 06-27-2023 Covid-19 Vaccine () Covid-19 Vaccine () [facility] Start: 06-27-2023 Influenza vaccination C [facility] Start: 04-25-2023 Influenza vaccination INFLUENZA (#1) [facility] Immunizations Immunization Date Immunization Notes Care Provider Fa cility 08-14-2018 influenza, injectabl e, quadrivalent, contains preservative Carson Allison MD Work Phone: [facility] Work Phone: 08-14-2018 influenza virus vaccine, unspecified formulation Screen Wstr [facility] Payers Date Payer Category Payer Medicaid [id number] 2022 Medicaid [id number] 2021 Unknown [employer] PPO [id number] 2021-Present [phone] [address] [place] [address] PPO [id number] 2021 Unknown [id number] Social History Date Type Detail Facility Start: 07-29-2022 Tobacco smoking stat us NMIS Never smoked tobacco [facility] Start: 07-30-2021 End: 10-07-2023 Alcohol intake Current non-drinker of alcohol (finding) [facility] Start: 1980 Sex Assigned At Not on file C [facility] Start: 02-02-2022 End: 09-24-2022 Exposure to SARS-CoV-2 (event) Not sure [facility] Start: 07-29-2022 Tobacco use and exposure Smoke less tobacco non-user [facility] Start: 05-07-2023 End: 10-07-2023 History of Social function [facility] Start: 05-07-2023 End: 10-07-2023 Tobacco use panel [facility] National Score (1-10 0), lower number is lower risk 61 [facility] Clinical Notes 10-16-2020 to 10-23-2023 Gema Casas, JHUI.FORM SETTER - 10/07/2023 10:51 AM ESTTelephone Encounter - Johana Lorenzana RN - 10/07/2023 9:24 AM ESTTelephone Encounter - Stefany Waite RN - 10/06/2023 4:09 PM EST Note Date & Type Note Facility 10-23-2023 Note HNO ID: [id number] Author: Ada Galvan MD Service: ? Author Type: Physician Type: Progress Notes Filed: 10/23/2023 3:40 PM Note Text: Kaela Rolle is a 43 year old female who presents for discussion regarding irregular bleeding- pt states bleeding all of September. Pt was scheduled for polypectomy in April- never had it done b/c had allergic reaction to something that day. Pt forgot about that- pt reports having some GI issues now currently too. Pt reports would like to proceed with surgical intervention. OB History T0 L0 SAB0 IAB0 Ectopic0 Multiple0 Live Births0 Egg Pasteurizer History LMP: 10/04/2023 (Exact Date), Having periods Age at Menarche: Age at First : Age at Menopause: Egg Pasteurizer History Comments: Sexual Activity: Yes; Male Contraception: Tubal Ligation PAST MEDICAL HISTORY Diagnosis Date Abdominal pain, unspecified site Acute pharyngitis Dysthymic disorder depression/anxiety Petit mal seizures [address] Dr. Cagle (neurologist)--[place] Unspecified constipation PAST SURGICAL HISTORY Procedure Laterality Date ANORECTAL MANOMETRY 10/14/2022 APPENDECTOMY 03/26/2012 [facility] COLONOSCOPY SCREENING 02/22/2021 [facility]ular [facility] 02/22/2021 Normal ESOPHAGOGASTRODUODENOSCOPY TRANSORAL DIAGNOSTIC 01/26/2013 EGD LAPAROSCOPY DIAGNOSTIC 03/04/2011 mild endometriosis, Dr Li, [facility] SURG CHOLECYSTECTOMY W/CHOLANGIOGRAPHY 06/29/2010 PAST SURGICAL HISTORY OF wisdom teeth x 4 PAST SURGICAL HISTORY OF age 25 cataract surgery bilateral PAST SURGICAL HISTORY OF abnormal cells on cervix PAST SURGICAL HISTORY OF 6 mos old tubes put in ears SALPINGECTOMY 10/2017 Laparoscopic B/l salpingectomy FAMILY HISTORY Problem Relation Age of Onset Diabetes Mother Anxiety disorder Mother Heart Father A Fib Heart Attack Father other (Bladder cancer) Father No Known Problems Sister No Known Problems Sister Cancer Maternal Uncle stomach Ischemic Heart Disease Maternal Uncle Hypertension Maternal Uncle Colon Cancer No Family History Social History Tobacco Use Smoking status: Never Smokeless tobacco: Never Vaping Use Vaping Use: Never used Substance Use Topics Alcohol use: No Drug use: No Current Outpatient Medications Medication Sig MULTIVITAMIN ORAL Take by mouth. divalproex DR (DEPAKOTE) 250 mg EC tablet 2 TABLETS (500 MG ) IN THE AM and 1 tablet (250mg) at night. fluticasone (FLONASE) 50 mcg/actuation nasal spray Use 2 Sprays in each nostril once daily. Rinse mouth after use. For nasal congestion and drainage (Patient not taking: Reported on 10/23/2023) dextromethorphan-guaiFENesin 5-50 mg/5 mL liqd Take 10-20 mL by mouth four times a day as needed. for cough (Patient not taking: Reported on 10/23/2023) phenazopyridine (PYRIDIUM) 200 mg tablet Take 1 tablet by mouth three times daily as needed. (Patient not taking: Reported on 05/08/2023) divalproex DR (DEPAKOTE) 250 mg EC tablet Take 250 mg by mouth twice daily. (Patient not taking: Reported on 10/23/2023) No current facility-administered medications for this visit. Allergies As of Date: 10/23/2023 Allergen Noted Reaction AUGMENTIN [AMOXICILLIN-POT CLAVUL*12/11/2015 GI Upset CODEINE 02/04/2013 Vomiting LATEX 06/21/2020 Rash MOLD 09/12/2010 Unknown Z KYLE [AZITHROMYCIN] 09/16/2015 Other: See Comments Fully Assessed 10/23/2023 REVIEW OF SYSTEMS Abdomen: cramping and radiates to back Bladder: frequency .. Expanded ROS: N/A Allergies and current medication updated:Yes EXAM: BP 116/68 Wt 136 lb (61.7kg) LMP 10/04/2023 GENERAL: pleasant, female in no apparent distress HEENT: Normocephalic and atraumatic NECK: full range of motion DERMATOLOGY: Normal and without lesions NEURO: alert and oriented x3,exam grossly non-focal EXTREMITIES: normal ASSESSMENT AND PLAN: Encounter Diagnosis ICD-10-CM 1. Abnormal uterine bleeding (AUB) N93.9 2. Endometrial polyp N84.0 3. Endometriosis N80.9 4. Pt counseled on ablation vs Liletta IUD insertion. I discussed I wanted to check her Salpingectomy op note to see if she had endometriosis documented on that- after she left I found op note- she did have documented endometriosis (one spot on USL). I would recommend IUD insertion over ablation. 5. OR booking sheet filled out. Ada Lama MD [facility] 10-07-2023 Note HNO ID: [id number] Author: Gema Casas APRN.FORM SETTER Service: ? Author Type: Nurse Specialist Type: Progress Notes Filed: 10/07/2023 12:17 PM Note Text: SUBJECTIVE Kaela Rolle is a 43 year old female who presents with upper respiratory infection symptoms that are improving with current treatment. She was seen in [facility] October 03, 2023 for acute cough. She was treated with benzonatate doxycycline and prednisone. She reported cough and raw dry throat. She was asking for liquid cough and sore throat medication. She notes that she felt improved with current treatment. Notes that cough medicine did not seem to help much. Continues with dry cough and sore throat. Notes that she is still having sore throat and dry cough. Symptoms include: Fever (?100.4F): No or Chills: No Cough: Yes Shortness of breath: No or Difficulty breathing: No Fatigue: Yes Muscle aches: No Headache: Yes New loss of smell or taste: No Sore throat: Yes Nasal congestion: Yes or Rhinorrhea: Yes PND Nausea: No or Vomiting: No Diarrhea: No OTC meds/remedies that patient has tried: states nothing helps so not taking OBJECTIVE PHYSICAL EXAM: BP 110/71 Pulse 109 Resp 16 Wt 63.5 kg (140 lb) LMP 04/14/2023 BMI 21.93 kg/m? General appearance: alert, cooperative, pleasant, in no acute distress Head: Normocephalic Eyes: conjunctiva/corneas normal Ears: R TM - clear with good landmarks, nl light reflex, L TM - clear with good landmarks, nl light reflex Nose: clear rhinorrhea, mucosa erythematous and swollen L>R Oropharynx: moist without lesions Neck: supple and small, benign anterior cervical nodes bilaterally Heart: regular rate and rhythm, without murmur Lungs: clear to auscultation, without rales or wheeze, good air exchange ASSESSMENT/PLAN (J02.9) Sore throat (primary encounter diagnosis) (R05.1) Acute cough ASSESSMENT/PLAN: 1. Sore throat - ICD9: 462, ICD10: J02.9 (primary diagnosis) 2. Acute cough - ICD9: 786.2, ICD10: R05.1 3. sinus congestion R09.81 She notes feeling improved on current treatment of doxycycline and prednisone. States benzonatate did not work well for her. She continues to note sore throat and dry cough along with nasal congestion and postnasal drip. She declines tapering dose of prednisone to take after current medication is completed for cough/throat pain. Declines albuterol inhaler. She is not interested in codeine cough syrup. Declines numbing medication for her throat such as Cepacol or lidocaine cough drop, Chloraseptic spray or viscous lidocaine at this time. States willing to take cough medicine with dextromethorphan and Flonase. She will let us know if not feeling improved with these measures and if wanting anything additional. Gema Casas APRN.FORM SETTER Medical Decision Making: Problems: Low: Acute, uncomplicated illness or injury Risk: Moderate: Drug management Medical Decision Making Level: 3 - Low [facility] 10-07-2023 History of Present illness Narrative SUBJECTIVE Kaela Rolle is a 43 year old female who presents with upper respiratory infection symptoms that are improving with current treatment. She was seen in [facility] October 03, 2023 for acute cough. She was treated with benzonatate doxycycline and prednisone. She reported cough and raw dry throat. She was asking for liquid cough and sore throat medication. She notes that she felt improved with current treatment. Notes that cough medicine did not seem to help much. Continues with dry cough and sore throat. Notes that she is still having sore throat and dry cough. Symptoms include: Fever (?100.4F): No or Chills: No Cough: Yes Shortness of breath: No or Difficulty breathing: No Fatigue: Yes Muscle aches: No Headache: Yes New loss of smell or taste: No Sore throat: Yes Nasal congestion: Yes or Rhinorrhea: Yes PND Nausea: No or Vomiting: No Diarrhea: No OTC meds/remedies that patient has tried: states nothing helps so not taking OBJECTIVE PHYSICAL EXAM: BP 110/71 Pulse 109 Resp 16 Wt 63.5 kg (140 lb) LMP 04/14/2023 BMI 21.93 kg/m General appearance: alert, cooperative, pleasant, in no acute distress Head: Normocephalic Eyes: conjunctiva/corneas normal Ears: R TM - clear with good landmarks, nl light reflex, L TM - clear with good landmarks, nl light reflex Nose: clear rhinorrhea, mucosa erythematous and swollen L>R Oropharynx: moist without lesions Neck: supple and small, benign anterior cervical nodes bilaterally Heart: regular rate and rhythm, without murmur Lungs: clear to auscultation, without rales or wheeze, good air exchange ASSESSMENT/PLAN (J02.9) Sore throat (primary encounter diagnosis) (R05.1) Acute cough ASSESSMENT/PLAN: 1. Sore throat - ICD9: 462, ICD10: J02.9 (primary diagnosis) 2. Acute cough - ICD9: 786.2, ICD10: R05.1 3. sinus congestion R09.81 She notes feeling improved on current treatment of doxycycline and prednisone. States benzonatate did not work well for her. She continues to note sore throat and dry cough along with nasal congestion and postnasal drip. She declines tapering dose of prednisone to take after current medication is completed for cough/throat pain. Declines albuterol inhaler. She is not interested in codeine cough syrup. Declines numbing medication for her throat such as Cepacol or lidocaine cough drop, Chloraseptic spray or viscous lidocaine at this time. States willing to take cough medicine with dextromethorphan and Flonase. She will let us know if not feeling improved with these measures and if wanting anything additional. Gema Casas APRN.[place] Medical Decision Making: Problems: Low: Acute, uncomplicated illness or injury Risk: Moderate: Drug management Medical Decision Making Level: 3 - Low documented in this encounter [facility] 10-07-2023 Miscellaneous Notes Patient calls back and schedules an appointment with Gema french for this morning 10/07/2023. Johana Lorenzana RN Isabella with [facility] calls to check on status of request for new medication for patient. Notified that request was pending provider review but patient could call for an appointment which is recommended if symptoms are not improving. Stefany Waite RN Pt calling stating she was seen in 10/03 for bronchitis and cough. Pt still has 2-3 days of atb left, finishes steroid today. Still has cough and raw, dry throat. Advises she told EC provider that the tessalon perles don't work for her. She was advised to try them with the other medications and if still having the cough/sore throat to call back to see if she could get a different medication. Pt could like a liquid cough medication called into [facility]. Questions if there is a cough medication that would have something in it to help with her sore throat as well as she also needs something for this. Please contact pt once rx has been sent in. Ok to leave message. Inga Brock LPN documented in this encounter [facility] 10-03-2023 Note HNO ID: [id number] Author: Adriana Delcid RT(R) Service: ? Author Type: Drawer Hardware Worker Type: Progress Notes Filed: 10/03/2023 8:25 AM Note Text: Radiology Service Progress Note PATIENT NAME: Kaela Rolle DATE OF SERVICE: October 03, 2023 TIME: 8:17 AM PATIENT IDENTITY VERIFICATION COMPLETED USING TWO (2) IDENTIFIERS: Name and Date of confirmed by patient verbally. FALL SCREENING: Has the patient had 2 falls in the last year or 1 fall with injury or currently using an Ambulatory Assistive Device (Walker, Cane, Wheelchair, Crutches, etc.)? No PATIENT GENDER DATA: Female. status: : No status: NO. PATIENT RELEVANT IMPLANT DATA REVIEWED: Yes RADIOLOGY DEPARTMENT: General X-ray: Exam(s) Completed: Chest X-Ray PERIPHERAL IV DATA: Not applicable SIGNED BY: RT Moe(R) October 03, 2023 8:17 AM [facility] 10-03-2023 Note HNO ID: [id number] Author: Vandana Jane APRN.KIDS ACTIVITIES COACH Service: ? Author Type: Nurse Practitioner Type: Progress Notes Filed: 10/03/2023 8:57 AM Note Text: Subjective HPI Kaela Rolle is a 43 year old female who presents with a cough x 2 weeks. She has had wheezing, chest tightness, sinus congestion, shortness of breath, feeling tired and short of breath. She has been using Ricola lozenges which have no helped. She has not had a fever. Cough is non-productive. She denies any known sick contacts. Review of Systems Constitutional: Positive for malaise/fatigue. Negative for chills and fever. HENT: Positive for congestion and sore throat. Negative for ear pain. Respiratory: Positive for cough, shortness of breath and wheezing. Negative for sputum production. Cardiovascular: Positive for chest pain ( tightness ). Musculoskeletal: Negative for myalgias. BP 117/87 Pulse 90 Temp 36.4 ?C (97.6 ?F) Resp 20 Wt 62.6 kg (138 lb) LMP 04/14/2023 SpO2 100% BMI 21.61 kg/m? PAST MEDICAL HISTORY Diagnosis Date - Abdominal pain, unspecified site - Acute pharyngitis - Dysthymic disorder depression/anxiety - Petit mal seizures [address] Dr. Cagle (neurologist)--[place] - Unspecified constipation PAST SURGICAL HISTORY Procedure Laterality Date - ANORECTAL MANOMETRY 10/14/2022 - APPENDECTOMY 03/26/2012 [facility] - COLONOSCOPY SCREENING 02/22/2021 Tubular adenoma - EGD W/O [facility] SPEC VARICIES INJ 02/22/2021 Normal - ESOPHAGOGASTRODUODENOSCOPY TRANSORAL DIAGNOSTIC 01/26/2013 EGD - LAPAROSCOPY DIAGNOSTIC 03/04/2011 mild endometriosis, Dr Li, [facility] - LAPS SURG CHOLECYSTECTOMY W/CHOLANGIOGRAPHY 06/29/2010 - PAST SURGICAL HISTORY OF wisdom teeth x 4 - PAST SURGICAL HISTORY OF age 25 cataract surgery bilateral - PAST SURGICAL HISTORY OF abnormal cells on cervix - PAST SURGICAL HISTORY OF 6 mos old tubes put in ears - SALPINGECTOMY 10/2017 Laparoscopic B/l salpingectomy ALLERGIES Augmentin [Amoxicillin-Pot Clavulanate], Codeine, Latex, Mold, and Z Kyle [Azithromycin] MEDICATIONS - MULTIVITAMIN ORAL Take by mouth. - divalproex DR (DEPAKOTE) 250 mg EC tablet 2 TABLETS (500 MG ) IN THE AM and 1 tablet (250mg) at night. - divalproex DR (DEPAKOTE) 250 mg EC tablet Take 250 mg by mouth twice daily. - phenazopyridine (PYRIDIUM) 200 mg tablet Take 1 tablet by mouth three times daily as needed. (Patient not taking: Reported on 05/08/2023) FAMILY HISTORY Problem Relation Age of Onset - Diabetes Mother - Anxiety disorder Mother - Heart Father A Fib - Heart Attack Father - other (Bladder cancer) Father - No Known Problems Sister - No Known Problems Sister - Cancer Maternal Uncle stomach - Ischemic Heart Disease Maternal Uncle - Hypertension Maternal Uncle - Colon Cancer No Family History Social History Tobacco Use - Smoking status: Never - Smokeless tobacco: Never Vaping Use - Vaping Use: Never used Substance Use Topics - Alcohol use: No - Drug use: No Objective Physical Exam Vitals and nursing note reviewed. Constitutional: General: She is not in acute distress. Appearance: Normal appearance. She is not ill-appearing. HENT: Right Ear: Tympanic membrane, ear canal and external ear normal. Left Ear: Tympanic membrane, ear canal and external ear normal. Nose: Congestion present. Mouth/Throat: Mouth: Mucous membranes are moist. Pharynx: Oropharynx is clear. Uvula midline. No oropharyngeal exudate or posterior oropharyngeal erythema. Cardiovascular: Rate and Rhythm: Normal rate and regular rhythm. Heart sounds: Normal heart sounds. Pulmonary: Effort: Pulmonary effort is normal. No respiratory distress. Breath sounds: Examination of the right-lower field reveals rhonchi. Examination of the left-lower field reveals rhonchi. Wheezing and rhonchi present. No rales. Musculoskeletal: Cervical back: Neck supple. Lymphadenopathy: Cervical: No cervical adenopathy. Skin: General: Skin is warm and dry. Findings: No erythema or rash. Neurological: Mental Status: She is alert. ASSESSMENT/PLAN: 1. Acute cough - ICD9: 786.2, ICD10: R05.1 (primary diagnosis) - XR CHEST 2V FRONTAL/LAT RESULT: Lines, tubes, and devices: None. Lungs and pleura: No consolidation. No lung mass. No pleural effusion. No pneumothorax. Cardiomediastinal silhouette: Normal cardiomediastinal silhouette. Bones and soft tissues: Unremarkable. IMPRESSION: No acute radiographic abnormality. Duct Installer: VALENTINO Transcribe Date/Time: Oct 03 2023 8:29A Dictated by : GERMÁN WYLIE MD 2. Sinobronchitis - ICD9: 473.9, 490, ICD10: J32.9, J40 - Will begin treatment with as per antibiotic as written, see orders - Supportive care with plenty of fluids, rest, and analgesia prn. - DOXYCYCLINE HYCLATE 100 MG TABLET - BENZONATATE 100 MG CAPSULE - PREDNISONE 20 MG TABLET - Follow-up with your PCP in 3-5 days if sy (more content not included)... [facility] 10-03-2023 Instructions Vandana Jane, JUHI.KIDS ACTIVITIES COACH - 10/03/2023 8:36 AM EST ASSESSMENT/PLAN: 1. Acute cough - ICD9: 786.2, ICD10: R05.1 (primary diagnosis) - XR CHEST 2V FRONTAL/LAT RESULT: Lines, tubes, and devices: None. Lungs and pleura: No consolidation. No lung mass. No pleural effusion. No pneumothorax. Cardiomediastinal silhouette: Normal cardiomediastinal silhouette. Bones and soft tissues: Unremarkable. IMPRESSION: No acute radiographic abnormality. Duct Installer: VALENTINO Transcribe Date/Time: Oct 03 2023 8:29A Dictated by : GERMÁN WYLIE MD 2. Sinobronchitis - ICD9: 473.9, 490, ICD10: J32.9, J40 - Will begin treatment with as per antibiotic as written, see orders - Supportive care with plenty of fluids, rest, and analgesia prn. - DOXYCYCLINE HYCLATE 100 MG TABLET - BENZONATATE 100 MG CAPSULE - PREDNISONE 20 MG TABLET - Follow-up with your PCP in 3-5 days if symptoms have not improved or sooner if symptoms worsen - Discussed red flags and need for immediate medical evaluation if any occur. - Discussed supportive care treatment with fluids, rest and analgesia. - Discussed expected course of illness Vandana Jane APRN.CATHY ACUTE BRONCHITIS: You have acute bronchitis. This means the airway passages in your lungs are inflamed. Bronchitis may be caused by viruses or bacteria. Inhaling cigarette smoke will always make it worse. Exposure to irritating chemicals or second hand smoke as well as allergies can contribute to bronchitis. Repeat episodes of bronchitis may cause lifelong lung problems. Acute bronchitis is usually treated with rest, fluids, cough medicine, and possibly antibiotics or inhaled medicine to open up the small airways. It is very important that you avoid smoke and drink increased amounts of fluids. A cool air vaporizer can help thin bronchial secretions. This makes it easier to cough and clear your chest. If you are a cigarette smoker, consider using nicotine gum or skin patches to help you withdraw. Recovery from bronchitis is often slow, but you should start feeling better after 2-3 days of treatment. Please call your doctor or return here if you have any of the following symptoms: Increased fever, chills, or chest pain. Severe shortness of breath or bloody sputum. Do not improve after 3 days of proper treatment. documented in this encounter [facility] 10-03-2023 History of Present illness Narrative Subjective HPI Kaela Rolle is a 43 year old female who presents with a cough x 2 weeks. She has had wheezing, chest tightness, sinus congestion, shortness of breath, feeling tired and short of breath. She has been using Ricola lozenges which have no helped. She has not had a fever. Cough is non-productive. She denies any known sick contacts. Review of Systems Constitutional: Positive for malaise/fatigue. Negative for chills and fever. HENT: Positive for congestion and sore throat. Negative for ear pain. Respiratory: Positive for cough, shortness of breath and wheezing. Negative for sputum production. Cardiovascular: Positive for chest pain ( tightness ). Musculoskeletal: Negative for myalgias. BP 117/87 Pulse 90 Temp 36.4 C (97.6 F) Resp 20 Wt 62.6 kg (138 lb) LMP 04/14/2023 SpO2 100% BMI 21.61 kg/m PAST MEDICAL HISTORY Diagnosis Date Abdominal pain, unspecified site Acute pharyngitis Dysthymic disorder depression/anxiety Petit mal seizures [address] Dr. Cagle (neurologist)--[place] Unspecified constipation PAST SURGICAL HISTORY Procedure Laterality Date ANORECTAL MANOMETRY 10/14/2022 APPENDECTOMY 03/26/2012 [facility] COLONOSCOPY SCREENING 02/22/2021 Tubular adenoma EGD W/O [facility] SPEC VARICIES INJ 02/22/2021 Normal ESOPHAGOGASTRODUODENOSCOPY TRANSORAL DIAGNOSTIC 01/26/2013 EGD LAPAROSCOPY DIAGNOSTIC 03/04/2011 mild endometriosis, Dr Li, [facility] LAPS SURG CHOLECYSTECTOMY W/CHOLANGIOGRAPHY 06/29/2010 PAST SURGICAL HISTORY OF wisdom teeth x 4 PAST SURGICAL HISTORY OF age 25 cataract surgery bilateral PAST SURGICAL HISTORY OF abnormal cells on cervix PAST SURGICAL HISTORY OF 6 mos old tubes put in ears SALPINGECTOMY 10/2017 Laparoscopic B/l salpingectomy ALLERGIES Augmentin [Amoxicillin-Pot Clavulanate], Codeine, Latex, Mold, and Z Kyle [Azithromycin] MEDICATIONS MULTIVITAMIN ORAL Take by mouth. divalproex DR (DEPAKOTE) 250 mg EC tablet 2 TABLETS (500 MG ) IN THE AM and 1 tablet (250mg) at night. divalproex DR (DEPAKOTE) 250 mg EC tablet Take 250 mg by mouth twice daily. phenazopyridine (PYRIDIUM) 200 mg tablet Take 1 tablet by mouth three times daily as needed. (Patient not taking: Reported on 05/08/2023) FAMILY HISTORY Problem Relation Age of Onset Diabetes Mother Anxiety disorder Mother Heart Father A Fib Heart Attack Father other (Bladder cancer) Father No Known Problems Sister No Known Problems Sister Cancer Maternal Uncle stomach Ischemic Heart Disease Maternal Uncle Hypertension Maternal Uncle Colon Cancer No Family History Social History Tobacco Use Smoking status: Never Smokeless tobacco: Never Vaping Use Vaping Use: Never used Substance Use Topics Alcohol use: No Drug use: No Objective Physical Exam Vitals and nursing note reviewed. Constitutional: General: She is not in acute distress. Appearance: Normal appearance. She is not ill-appearing. HENT: Right Ear: Tympanic membrane, ear canal and external ear normal. Left Ear: Tympanic membrane, ear canal and external ear normal. Nose: Congestion present. Mouth/Throat: Mouth: Mucous membranes are moist. Pharynx: Oropharynx is clear. Uvula midline. No oropharyngeal exudate or posterior oropharyngeal erythema. Cardiovascular: Rate and Rhythm: Normal rate and regular rhythm. Heart sounds: Normal heart sounds. Pulmonary: Effort: Pulmonary effort is normal. No respiratory distress. Breath sounds: Examination of the right-lower field reveals rhonchi. Examination of the left-lower field reveals rhonchi. Wheezing and rhonchi present. No rales. Musculoskeletal: Cervical back: Neck supple. Lymphadenopathy: Cervical: No cervical adenopathy. Skin: General: Skin is warm and dry. Findings: No erythema or rash. Neurological: Mental Status: She is alert. ASSESSMENT/PLAN: 1. Acute cough - ICD9: 786.2, ICD10: R05.1 (primary diagnosis) - XR CHEST 2V FRONTAL/LAT RESULT: Lines, tubes, and devices: None. Lungs and pleura: No consolidation. No lung mass. No pleural effusion. No pneumothorax. Cardiomediastinal silhouette: Normal cardiomediastinal silhouette. Bones and soft tissues: Unremarkable. IMPRESSION: No acute radiographic abnormality. Duct Installer: VALENTINO Transcribe Date/Time: Oct 03 2023 8:29A Dictated by : GERMÁN WYLIE MD 2. Sinobronchitis - ICD9: 473.9, 490, ICD10: J32.9, J40 - Will begin treatment with as per antibiotic as written, see orders - Supportive care with plenty of fluids, rest, and analgesia prn. - DOXYCYCLINE HYCLATE 100 MG TABLET - BENZONATATE 100 MG CAPSULE - PREDNISONE 20 MG TABLET - Follow-up with your PCP in 3-5 days if symptoms have not improved or sooner if symptoms worsen - Discussed red flags and need for immediate medical evaluation if any occur. - Discussed supportive care treatment with fluids, rest and analgesia. - Discussed expected course of illness Vandana Jane APRN.KIDS ACTIVITIES COACH documented in this encounter [facility] 09-17-2023 Miscellaneous Notes Call placed to patient and notified of below. Patient voices understanding and thankful fpr antibiotic. Stefany Waite RN Since not improving with prednisone, okay antibioitic. Since does not tolerate first line Augmentin, will send for Doxycycline The following approved medication requests have been transmitted electronically. Requested Prescriptions Signed Prescriptions Disp Refills doxycycline (VIBRA-TABS) 100 mg tablet 10 tablet 0 Sig: Take 1 tablet by mouth two times a day for 5 days. Authorizing Provider: MIRELLA ZENDEJAS MD Follow up if not getting better Pt states if an antibiotic is called in for her, [facility] [place]. She also states she can not take augmentin or a zpak. Blanche Reaves LPN Spoke with patient and she states she has been taking the prednisone and has had 3 doses. She states at this time the prednisone is not helping. Patient is very addiment that she needs an antibiotic states she is starting a new job on Friday and can not afford to call off. Did suggest that she try Delsym OTC for cough also but patient states that she can't afford that at this time. In this situation it would be beneficial to start the steroid and take that for a few days to see if symptoms improve since they are likely viral but if persistent at the end of the week then antibiotics would be indicated. Patient calls to request an antibiotic for what she believes is a sinus infection. Patient was to the [facility] Yesterday 09/15/2023 and tested positive for Covid so they prescribed a steroid but not an antibiotic. Symptoms started Wednesday 09/12 and include: Stuffy nose, sinus congestion/pressure, eye pressure, ear pain/pressure, sore/scratchy throat, cough with drainage into back of throat that is causing dry heaving. [place] feverish Friday but unknown temperature. 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 Per patient, [facility] advised her to contact PCP. Patient offered to schedule VV but is not able to because she doesn't have [facility]. Last OV: 08/21/2022. Patient asking for response today. Please review and advise, Stefany Waite RN documented in this encounter [facility] 06-09-2023 Note HNO ID: [id number] Author: Kelsy Lester RT(R) Service: ? Author Type: Drawer Hardware Worker Type: Progress Notes Filed: 06/09/2023 8:59 AM Note Text: Radiology Service Progress Note PATIENT NAME: Kaela Rolle DATE OF SERVICE: June 09, 2023 TIME: 8:56 AM PATIENT IDENTITY VERIFICATION COMPLETED USING TWO (2) IDENTIFIERS: Name and Date of confirmed by patient verbally. FALL SCREENING: Has the patient had 2 falls in the last year or 1 fall with injury or currently using an Ambulatory Assistive Device (Walker, Cane, Wheelchair, Crutches, etc.)? No PATIENT GENDER DATA: Female. status: : No status: NO. PATIENT RELEVANT IMPLANT DATA REVIEWED: Not Applicable RADIOLOGY DEPARTMENT: Mammography PERIPHERAL IV DATA: Not applicable SIGNED BY: RT Florina(R) June 09, 2023 8:56 AM [facility] 06-09-2023 Note HNO ID: [id number] Author: Berna Narvaez Mammo Tech Service: ? Author Type: Drawer Hardware Worker Type: Progress Notes Filed: 06/09/2023 9:23 AM Note Text: Radiology Service Progress Note PATIENT NAME: Kaela Rolle DATE OF SERVICE: June 09, 2023 TIME: 8:56 AM PATIENT IDENTITY VERIFICATION COMPLETED USING TWO (2) IDENTIFIERS: Name and Date of confirmed by patient verbally. FALL SCREENING: Has the patient had 2 falls in the last year or 1 fall with injury or currently using an Ambulatory Assistive Device (Walker, Cane, Wheelchair, Crutches, etc.)? No PATIENT GENDER DATA: Female. status: : No status: NO. PATIENT RELEVANT IMPLANT DATA REVIEWED: Not Applicable RADIOLOGY DEPARTMENT: Mammography PERIPHERAL IV DATA: Not applicable SIGNED BY: Berna Narvaez [employer] [place] June 09, 2023 8:56 AM [facility] 06-09-2023 Miscellaneous Notes June 11, 2023 PID: [id number] Kaela Rolle [id number] [place] [address] Dear Ms. Rolle, We are pleased to inform you that the results of your recent breast imaging exam on 06/09/2023 are normal. Your mammogram demonstrates that you have dense breast tissue, which could hide abnormalities. Dense breast tissue, in and of itself, is a relatively common condition. Therefore, this information is not provided to cause undue concern; rather, it is to raise your awareness and promote discussion with your health care provider regarding the presence of dense breast tissue in addition to other risk factors. Early detection of cancer is very important. We also understand recommendations regarding breast cancer screening are controversial. Please discuss with your primary care provider which strategy is best for you and whether a mammogram is right for you. Your imaging studies and report will be kept on file at [facility] as part of your permanent medical record and are available for your continuing care. Thank you for allowing us to help in meeting your health care needs. Sincerely, Dr. Daniel Interpreting Radiologist [facility] (Normal over 40) documented in this encounter [facility] 06-09-2023 History of Present illness Narrative Radiology Service Progress Note PATIENT NAME: Kaela Rolle DATE OF SERVICE: June 09, 2023 TIME: 8:56 AM PATIENT IDENTITY VERIFICATION COMPLETED USING TWO (2) IDENTIFIERS: Name and Date of confirmed by patient verbally. FALL SCREENING: Has the patient had 2 falls in the last year or 1 fall with injury or currently using an Ambulatory Assistive Device (Walker, Cane, Wheelchair, Crutches, etc.)? No PATIENT GENDER DATA: Female. status: : No status: NO. PATIENT RELEVANT IMPLANT DATA REVIEWED: Not Applicable RADIOLOGY DEPARTMENT: Mammography PERIPHERAL IV DATA: Not applicable SIGNED BY: Berna Narvaez RT(R) June 09, 2023 8:56 AM Radiology Service Progress Note PATIENT NAME: Kaela Rolle DATE OF SERVICE: June 09, 2023 TIME: 8:56 AM PATIENT IDENTITY VERIFICATION COMPLETED USING TWO (2) IDENTIFIERS: Name and Date of confirmed by patient verbally. FALL SCREENING: Has the patient had 2 falls in the last year or 1 fall with injury or currently using an Ambulatory Assistive Device (Walker, Cane, Wheelchair, Crutches, etc.)? No PATIENT GENDER DATA: Female. status: : No status: NO. PATIENT RELEVANT IMPLANT DATA REVIEWED: Not Applicable RADIOLOGY DEPARTMENT: Mammography PERIPHERAL IV DATA: Not applicable SIGNED BY: Julia Heaton June 09, 2023 8:56 AM documented in this encounter [facility] 05-08-2023 Note HNO ID: [id number] Author: Shira Arreola APRN.CATHY Service: ? Author Type: Nurse Practitioner Type: Progress Notes Filed: 05/08/2023 12:12 PM Note Text: Kaela is a 43 year old who presents for an annual gynecologic exam with complaints, vulvar irritation . Menses: cycles every 25-30 days and 5-7 days of flow. Contraception: tubal sterilization HPV vaccine: No Last Pap: 12/27/2016 normal HPV: 12/20/2016 negative History of abnormal pap: No Last mammogram: 2019follow up normal Sexually active: Yes Pain with intercourse: No Postcoital bleeding: No OB History T0 L0 SAB0 IAB0 Ectopic0 Multiple0 Live Births0 Egg Pasteurizer History LMP: 04/14/2023, Having periods Age at Menarche: Age at First : Age at Menopause: Egg Pasteurizer History Comments: Sexual Activity: Yes; Male Contraception: Tubal Ligation PAST MEDICAL HISTORY Diagnosis Date Abdominal pain, unspecified site Acute pharyngitis Dysthymic disorder depression/anxiety Petit mal seizures [address] Dr. Cagle (neurologist)--Tyler Unspecified constipation PAST SURGICAL HISTORY Procedure Laterality Date ANORECTAL MANOMETRY 10/14/2022 APPENDECTOMY 03/26/2012 [facility] COLONOSCOPY SCREENING 02/22/2021 Tubular adenoma EGD W/O [facility] SPEC VARICIES INJ 02/22/2021 Normal ESOPHAGOGASTRODUODENOSCOPY TRANSORAL DIAGNOSTIC 01/26/2013 EGD LAPAROSCOPY DIAGNOSTIC 03/04/2011 mild endometriosis, Dr Li, [facility] LAPS SURG CHOLECYSTECTOMY W/CHOLANGIOGRAPHY 06/29/2010 PAST SURGICAL HISTORY OF wisdom teeth x 4 PAST SURGICAL HISTORY OF age 25 cataract surgery bilateral PAST SURGICAL HISTORY OF abnormal cells on cervix PAST SURGICAL HISTORY OF 6 mos old tubes put in ears SALPINGECTOMY 10/2017 Laparoscopic B/l salpingectomy FAMILY HISTORY Problem Relation Age of Onset Diabetes Mother Anxiety disorder Mother Heart Father A Fib Heart Attack Father other (Bladder cancer) Father No Known Problems Sister No Known Problems Sister Cancer Maternal Uncle stomach Ischemic Heart Disease Maternal Uncle Hypertension Maternal Uncle Colon Cancer No Family History SOCIAL HISTORY Social History Tobacco Use Smoking status: Never Smokeless tobacco: Never Vaping Use Vaping Use: Never used Substance Use Topics Alcohol use: No Drug use: No REVIEW OF SYSTEMS Abdomen: No abdominal pain, nausea, vomiting, diarrhea, or constipation. No bloating, early satiety, indigestion, or increased flatulence. Bladder: No dysuria, gross hematuria, urinary frequency, urinary urgency, or incontinence. Breast: No breast lumps, nipple d/c, overlying skin changes, redness or skin retraction. Allergies and current medication updated:Yes EXAM: BP 112/74 Ht 5' 7 (1.70m) Wt 133 lb (60.3kg) LMP 04/14/2023 BMI 20.83 kg/(m2). GENERAL: pleasant, female in no apparent distress HEENT: Normocephalic, atraumatic, mucus membranes moist, and no lesions NECK: Supple, full range of motion, no adenopathy, and thyroid normal DERMATOLOGY: Normal, without lesions, non-icteric, and non-hirsute BREAST: soft, non-tender, symmetric, no dominant mass, normal nipple-areolar complex, no lymphadenopathy, and no nipple discharge CHEST: Normal inspiratory effort ABDOMEN: soft, non-tender, and no masses PELVIC: external genitalia normal, normal Bartholin's glands, urethra, Kerens's glands, no vulvar lesions, no cervical lesions, good vaginal support, physiologic discharge present, normal appearing perineal body and perianal region BIMANUAL: uterus normal size, shape and consistency, no adnexal masses, and non-tender RECTOVAGINAL: deferred. NEURO: alert and oriented x3,exam grossly non-focal EXTREMITIES: normal ASSESSMENT/PLAN: 1) Health maintenance: Pap done with HPV. Mammogram ordered. Nutrition, exercise and routine health maintenance exams reviewed. Calcium/Vitamin D supplementation information provided. 2) Contraception: tubal sterilization. Contraceptive options reviewed and information provided. 3) STD screening: Declined STD check. 4) Follow up one year or sooner as needed 5) Lotrisone ordered for vulvar and anal irritation Shira Arreola, JUHI.[facility] 05-07-2023 Note Patient Outreach (IN [facility]) ---- KAELA ROLLE ([id number]) 1980 F Date Time Provider Department 05/07/23 MIRELLA ZENDEJAS During your visit today, we recorded the following information about you: Allergies As of Date: 05/07/2023 Noted Allergy Reaction AUGMENTIN (AMOXICILLIN-POT CLAVUL*12/11/2015 8 - GI Upset CODEINE 02/04/2013 11 - Vomiting LATEX 06/21/2020 2 - Rash MOLD 09/12/2010 16 - Unknown Z KYLE (AZITHROMYCIN) 09/16/2015 14 - Other: See Comments Comments: Interferes with Depakote Date Reviewed: 05/07/2023 Reviewed by: Odalis Young Ma - Fully Assessed Visit Diagnosis:Encounter for screening mammogram for breast cancer [Z12.31] Order(s):[facility] SCREENING [[id number]] Order #: [id number] FUTURE Prescriptions as of 05/12/2023 - clotrimazole-betamethasone (LOTRISONE) cream Apply 1 application to affected area twice daily for 7 days. - MULTIVITAMIN ORAL Take by mouth. - phenazopyridine (PYRIDIUM) 200 mg tablet Take 1 tablet by mouth three times daily as needed. - divalproex DR (DEPAKOTE) 250 mg EC tablet 2 TABLETS (500 MG ) IN THE AM and 1 tablet (250mg) at night. - divalproex DR (DEPAKOTE) 250 mg EC tablet Take 250 mg by mouth twice daily. Meds Comments as of 03/19/2012: / Problem List As Of Date 05/07/2023 Noted Resolved CONSTIPATION NOS [K59.00] 04/05/2008 ABDOMINAL PAIN UNSPEC SITE [R10.9] 04/05/2008 NONSPECIF SKIN ERUPT NEC [R21] 04/05/2008 IRRITABLE COLON [K58.9] 11/24/2008 Seizure Disorder [G40.909] 07/13/2010 Chronic Daily Headache [R51.9] 07/13/2010 Petit mal seizures Palpitations [R00.2] 01/29/2012 Dysthymic disorder [F34.1] Hematuria [R31.9] 10/16/2020 Full incontinence of feces [R15.9] 10/25/2022 Pelvic floor dysfunction in female [M62.89] 10/25/2022 Encounter Status:Closed by JEREMIAS HANLEY on 05/12/23 [facility] 05-07-2023 History and physical note Pre-Op History and Physical HPI: The patient is a 43 year old female presenting for discussion regarding ultrasound findings and abnormal uterine bleeding. Patient reports has irregular cycles at times with heavy menses. Most recent ultrasound shows a possible endometrial polyp. Patient was counseled for hysteroscopic evaluation and possible polypectomy. Patient would like to proceed with intended surgery. Pre-operative visit. She is scheduled for Hysteroscopy D&C and possible polypectomy, for AUB, Endometrial polyp on 05/15/23. Procedure discussed along with risks, benefits and complications. Other alternatives discussed for management. Consent form signed? Yes. PAST MEDICAL HISTORY Diagnosis Date Abdominal pain, unspecified site Acute pharyngitis Dysthymic disorder depression/anxiety Petit mal seizures [address] Dr. Cagle (neurologist)--Tyler Unspecified constipation PAST SURGICAL HISTORY Procedure Laterality Date ANORECTAL MANOMETRY 10/14/2022 APPENDECTOMY 03/26/2012 [facility] COLONOSCOPY SCREENING 02/22/2021 Tubular adenoma EGD W/O [facility] SPEC VARICIES INJ 02/22/2021 Normal ESOPHAGOGASTRODUODENOSCOPY TRANSORAL DIAGNOSTIC 01/26/2013 EGD LAPAROSCOPY DIAGNOSTIC 03/04/2011 mild endometriosis, Dr Li, [facility] LAPS SURG CHOLECYSTECTOMY W/CHOLANGIOGRAPHY 06/29/2010 PAST SURGICAL HISTORY OF wisdom teeth x 4 PAST SURGICAL HISTORY OF age 25 cataract surgery bilateral PAST SURGICAL HISTORY OF abnormal cells on cervix PAST SURGICAL HISTORY OF 6 mos old tubes put in ears SALPINGECTOMY 10/2017 Laparoscopic B/l salpingectomy Current Outpatient Medications Medication Sig Dispense Refill MULTIVITAMIN ORAL Take by mouth. phenazopyridine (PYRIDIUM) 200 mg tablet Take 1 tablet by mouth three times daily as needed. [address] (DEPAKOTE) 250 mg EC tablet 2 TABLETS (500 MG ) IN THE AM and 1 tablet (250mg) at night. divalproex DR (DEPAKOTE) 250 mg EC tablet Take 250 mg by mouth twice daily. No current facility-administered medications for this visit. ALLERGIES: Augmentin [Amoxicillin-Pot Clavulanate], Codeine, Latex, Mold, and Z Kyle [Azithromycin] PERSONAL HISTORY: Social History Tobacco Use Smoking status: Never Smokeless tobacco: Never Vaping Use Vaping Use: Never used Substance Use Topics Alcohol use: No Drug use: No FAMILY HISTORY: FAMILY HISTORY Problem Relation Age of Onset Diabetes Mother Anxiety disorder Mother Heart Father A Fib Heart Attack Father other (Bladder cancer) Father No Known Problems Sister No Known Problems Sister Cancer Maternal Uncle stomach Ischemic Heart Disease Maternal Uncle Hypertension Maternal Uncle Colon Cancer No Family History REVIEW OF SYMPTOMS: negative except as noted above PHYSICAL EXAMINATION: VITALS: Blood pressure 100/62, weight 134 lb (60.8 kg), last menstrual period 04/14/2023. GENERAL: The patient is well nourished, well hydrated in no acute distress. , The patient is oriented to time, place, and person. NECK: full range of motion LUNGS: Clear to auscultation bilaterally. no wheezes, rhonchi or rales HEART: Regular rate and rhythm, Normal heart sounds, and No murmurs or gallops IMPRESSION: 43yo with AUB, heavy menses and EM polyp on ultrasound PLAN: Hysteroscopy, D&C, possible polypectomy Pt has been counseled on risks/benefits and alternatives of surgery including but not limited to anesthesia, bleeding, infection, uterine perforation with subsequent injury to pelvic structures including bowel, bladder, ureters and vessels. Pt wishes to proceed with surgery at this time. Pre and post op instructions reviewed I have reviewed and updated past medical and surgical history, medications and allergies Ada Feliciano MD documented in this encounter [facility] 04-25-2023 Miscellaneous Notes Noted. Ambar Soto LPN' I spoke with the pt yesterday and she does feel that she needs it. So don't worry about the prior auth. Shira Arreola APRN.CATHY Electronic PA submitted for Lidocaine/Hydrocortisone Ac. Received denial for medication. Her plan covers Lidocaine-HC 3-0.5% without prior authorization. Please advise. Ambar Soto LPN documented in this encounter [facility] 04-24-2023 Miscellaneous Notes I called and discussed results with pt. Shira Arreola APRN.CNP Patient called requesting provider to call her to discuss recent HSV results. Patient states that she can be reached after 4:00 pm on 04/24/2023. documented in this encounter [facility] 04-22-2023 Note HNO ID: [id number] Author: Shira Arreola APRN.CNP Service: ? Author Type: Nurse Practitioner Type: Progress Notes Filed: 04/22/2023 10:23 AM Note Text: Geriatric Social Worker offered: Patient declines. Kaela Rolle is a 42 year old female who presents for problem visit vulvar irritation for 1 week(s). HPI: Patient states that she noticed about a week ago swelling to the right labia and groin area with some sore areas. She states that it is very itchy and with urination creates more irritation to the area. She is currently being treated for a UTI and has 2 days left of the ATB. Denies any vaginal discharge or odor. OB History T0 L0 SAB0 IAB0 Ectopic0 Multiple0 Live Births0 Egg Pasteurizer History LMP: 04/14/2023, Having periods Age at Menarche: Age at First : Age at Menopause: Egg Pasteurizer History Comments: Sexual Activity: Not Currently; Male Contraception: Condom PAST MEDICAL HISTORY Diagnosis Date Abdominal pain, unspecified site Acute pharyngitis Dysthymic disorder depression/anxiety Petit mal seizures [address] Dr[address] Cagle (neurologist)--Tyler Unspecified constipation PAST SURGICAL HISTORY Procedure Laterality Date ANORECTAL MANOMETRY 10/14/2022 APPENDECTOMY 03/26/2012 [facility] COLONOSCOPY SCREENING 02/22/2021 Tubular adenoma EGD W/O [facility] SPEC VARICIES INJ 02/22/2021 Normal ESOPHAGOGASTRODUODENOSCOPY TRANSORAL DIAGNOSTIC 01/26/2013 EGD LAPAROSCOPY DIAGNOSTIC 03/04/2011 mild endometriosis, Dr Li, [facility] LAPS SURG CHOLECYSTECTOMY W/CHOLANGIOGRAPHY 06/29/2010 PAST SURGICAL HISTORY OF wisdom teeth x 4 PAST SURGICAL HISTORY OF age 25 cataract surgery bilateral PAST SURGICAL HISTORY OF abnormal cells on cervix PAST SURGICAL HISTORY OF 6 mos old tubes put in ears SALPINGECTOMY 10/2017 Laparoscopic B/l salpingectomy FAMILY HISTORY Problem Relation Age of Onset Diabetes Mother Anxiety disorder Mother Heart Father A Fib Heart Attack Father other (Bladder cancer) Father No Known Problems Sister No Known Problems Sister Cancer Maternal Uncle stomach Ischemic Heart Disease Maternal Uncle Hypertension Maternal Uncle Colon Cancer No Family History Social History Tobacco Use Smoking status: Never Smokeless tobacco: Never Vaping Use Vaping Use: Never used Substance Use Topics Alcohol use: No Drug use: No Current Outpatient Medications Medication Sig amoxicillin (AMOXIL) 500 mg capsule Take 1 capsule by mouth three times daily for 7 days. FOR 7 DAYS. MULTIVITAMIN ORAL Take by mouth. phenazopyridine (PYRIDIUM) 200 mg tablet Take 1 tablet by mouth three times daily as needed. divalproex DR (DEPAKOTE) 250 mg EC tablet 2 TABLETS (500 MG ) IN THE AM and 1 tablet (250mg) at night. valACYclovir (VALTREX) 1 gram Take 1 tablet by mouth once daily for 10 days. FOR 10 DAYS. lidocaine-hydrocortisone 3-0.5 % crea Apply to affected area as needed for up to [address] (DEPAKOTE) 250 mg EC tablet Take 250 mg by mouth twice daily. No current facility-administered medications for this visit. Allergies As of Date: 04/22/2023 Allergen Noted Reaction AUGMENTIN [AMOXICILLIN-POT CLAVUL*12/11/2015 GI Upset CODEINE 02/04/2013 Vomiting LATEX 06/21/2020 Rash MOLD 09/12/2010 Unknown Z KYLE [AZITHROMYCIN] 09/16/2015 Other: See Comments Fully Assessed 04/22/2023 REVIEW OF SYSTEMS Expanded ROS: N/A Allergies and current medication updated:Yes EXAM: BP 102/70 Wt 132 lb 6.4 oz (60.1kg) LMP 04/14/2023 GENERAL: pleasant, female in no apparent distress HEENT: Normocephalic, atraumatic, mucus membranes moist, and no lesions CHEST: Normal inspiratory effort PELVIC: external genitalia normal, normal Bartholin's glands, urethra, Kerens's glands, good vaginal support, physiologic discharge present, normal appearing perineal body and perianal region, vulvar lesion to b/l labia and posterior fourchette, cervical lesion, swollen lymph nodes in the right groin NEURO: alert and oriented x3,exam grossly non-focal EXTREMITIES: normal ASSESSMENT/PLAN: 1. Vaginal itching - ICD9: 698.1, ICD10: N89.8 (primary diagnosis) - BACTERIAL VAGINOSIS NAAT - YOLANDA/TRICHOMONAS NAAT 2. 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 Ovarian cyst, left - ICD9: 620.2, ICD10: N83.202 - PELVIC US WHI Shira Arreola, [employer].KIDS ACTIVITIES COACH Medical Decision Making: Problems: Low: Acute, uncomplicated illness or injury Data: Unique test(s) ordered: 3+ Risk: Low: Low risk from testing/treatment Moderate: Drug management Medical Decision Making Level: 4 - Moderate [facility] 04-22-2023 History of Present illness Narrative Geriatric Social Worker offered: Patient declines. Kaela Rolle is a 42 year old female who presents for problem visit vulvar irritation for 1 week(s). HPI: Patient states that she noticed about a week ago swelling to the right labia and groin area with some sore areas. She states that it is very itchy and with urination creates more irritation to the area. She is currently being treated for a UTI and has 2 days left of the ATB. Denies any vaginal discharge or odor. OB History T0 L0 SAB0 IAB0 Ectopic0 Multiple0 Live Births0 Egg Pasteurizer History LMP: 04/14/2023, Having periods Age at Menarche: Age at First : Age at Menopause: Egg Pasteurizer History Comments: Sexual Activity: Not Currently; Male Contraception: Condom PAST MEDICAL HISTORY Diagnosis Date Abdominal pain, unspecified site Acute pharyngitis Dysthymic disorder depression/anxiety Petit mal seizures [address] Dr[address] Cagle (neurologist)--Tyler Unspecified constipation PAST SURGICAL HISTORY Procedure Laterality Date ANORECTAL MANOMETRY 10/14/2022 APPENDECTOMY 03/26/2012 [facility] COLONOSCOPY SCREENING 02/22/2021 Tubular adenoma EGD W/O [facility] SPEC VARICIES INJ 02/22/2021 Normal ESOPHAGOGASTRODUODENOSCOPY TRANSORAL DIAGNOSTIC 01/26/2013 EGD LAPAROSCOPY DIAGNOSTIC 03/04/2011 mild endometriosis, Dr Li, [facility] LAPS SURG CHOLECYSTECTOMY W/CHOLANGIOGRAPHY 06/29/2010 PAST SURGICAL HISTORY OF wisdom teeth x 4 PAST SURGICAL HISTORY OF age 25 cataract surgery bilateral PAST SURGICAL HISTORY OF abnormal cells on cervix PAST SURGICAL HISTORY OF 6 mos old tubes put in ears SALPINGECTOMY 10/2017 Laparoscopic B/l salpingectomy FAMILY HISTORY Problem Relation Age of Onset Diabetes Mother Anxiety disorder Mother Heart Father A Fib Heart Attack Father other (Bladder cancer) Father No Known Problems Sister No Known Problems Sister Cancer Maternal Uncle stomach Ischemic Heart Disease Maternal Uncle Hypertension Maternal Uncle Colon Cancer No Family History Social History Tobacco Use Smoking status: Never Smokeless tobacco: Never Vaping Use Vaping Use: Never used Substance Use Topics Alcohol use: No Drug use: No Current Outpatient Medications Medication Sig amoxicillin (AMOXIL) 500 mg capsule Take 1 capsule by mouth three times daily for 7 days. FOR 7 DAYS. MULTIVITAMIN ORAL Take by mouth. phenazopyridine (PYRIDIUM) 200 mg tablet Take 1 tablet by mouth three times daily as needed. divalproex DR (DEPAKOTE) 250 mg EC tablet 2 TABLETS (500 MG ) IN THE AM and 1 tablet (250mg) at night. valACYclovir (VALTREX) 1 gram Take 1 tablet by mouth once daily for 10 days. FOR 10 DAYS. lidocaine-hydrocortisone 3-0.5 % crea Apply to affected area as needed for up to [address] (DEPAKOTE) 250 mg EC tablet Take 250 mg by mouth twice daily. No current facility-administered medications for this visit. Allergies As of Date: 04/22/2023 Allergen Noted Reaction AUGMENTIN [AMOXICILLIN-POT CLAVUL*12/11/2015 GI Upset CODEINE 02/04/2013 Vomiting LATEX 06/21/2020 Rash MOLD 09/12/2010 Unknown Z KYLE [AZITHROMYCIN] 09/16/2015 Other: See Comments Fully Assessed 04/22/2023 REVIEW OF SYSTEMS Expanded ROS: N/A Allergies and current medication updated:Yes EXAM: BP 102/70 Wt 132 lb 6.4 oz (60.1kg) LMP 04/14/2023 GENERAL: pleasant, female in no apparent distress HEENT: Normocephalic, atraumatic, mucus membranes moist, and no lesions CHEST: Normal inspiratory effort PELVIC: external genitalia normal, normal Bartholin's glands, urethra, Kerens's glands, good vaginal support, physiologic discharge present, normal appearing perineal body and perianal region, vulvar lesion to b/l labia and posterior fourchette, cervical lesion, swollen lymph nodes in the right groin NEURO: alert and oriented x3,exam grossly non-focal EXTREMITIES: normal ASSESSMENT/PLAN: 1. Vaginal itching - ICD9: 698.1, ICD10: N89.8 (primary diagnosis) - BACTERIAL VAGINOSIS NAAT - YOLANDA/TRICHOMONAS NAAT 2. 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 Ovarian cyst, left - ICD9: 620.2, ICD10: N83.202 - PELVIC US WHI Shira Arreola APRN.KIDS ACTIVITIES COACH Medical Decision Making: Problems: Low: Acute, uncomplicated illness or injury Data: Unique test(s) ordered: 3+ Risk: Low: Low risk from testing/treatment Moderate: Drug management Medical Decision Making Level: 4 - Moderate documented in this encounter [facility] 04-16-2023 Miscellaneous Notes ordered Patient called to inquire about this. Aware a new RX will be sent. Gala Michaud RN [facility] retail pharmacy called. For the Amoxicillin RX, if you are needing patient to take THREE TIMES A DAY for 7 days they need a new RX sent with the correct quantity. New RX pending. Gala Michaud RN documented in this encounter [facility] 04-14-2023 Miscellaneous Notes Patient notified and voiced understanding of below information and instructions. Amber Celina RN Needs to leave sample prior to starting abx. Patient calling with c/o UTI. Dysuria, pelvic pressure, and her urine is coming out as a dribble. She needs to push the urine out. States she is miserable and would like an antibiotic today. Agreeable to leaving a urine sample at the lab today. UA and urine culture pending. Patient is currently on her menses. Having vaginal odor and discharge, but unsure if it's due to her menses. Gala Michaud RN documented in this encounter [facility] 01-31-2023 Note HNO ID: [id number] Author: Ada Feliciano MD Service: ? Author Type: Physician Type: Progress Notes Filed: 01/31/2023 9:31 AM Note Text: Geriatric Social Worker offered: Patient declines. Kaela Rolle is a 42 year old female who presents for concerns regarding possible UTI or vaginal infection. Patient reports she woke up this morning having the urge to urinate but was only able to dribble. Patient reports she noticed a vaginal odor and some irritation. She feels pelvic discomfort. She reports she is sexually active no new partners. But she would like screened for STDs. Patient denies any changes with soaps or detergents. She states she is just ending her menses. Patient states she was recently diagnosed with a ovarian cyst from a CT scan that was done. Patient reports last night felt cold but denies any fevers. Patient is worried she could have a bladder infection but states she has never had one before. Pt offers no other concerns today. OB History T0 L0 SAB0 IAB0 Ectopic0 Multiple0 Live Births0 Egg Pasteurizer History LMP: 01/21/2023, Having periods Age at Menarche: Age at First : Age at Menopause: Egg Pasteurizer History Comments: Sexual Activity: Not Currently; Male Contraception: Condom PAST MEDICAL HISTORY Diagnosis Date Abdominal pain, unspecified site Acute pharyngitis Dysthymic disorder depression/anxiety Petit mal seizures [address] Dr[address] Cagle (neurologist)--Tyler Unspecified constipation PAST SURGICAL HISTORY Procedure Laterality Date ANORECTAL MANOMETRY 10/14/2022 APPENDECTOMY 03/26/2012 [facility] COLONOSCOPY SCREENING 02/22/2021 Tubular adenoma EGD W/O [facility] SPEC VARICIES INJ 02/22/2021 Normal ESOPHAGOGASTRODUODENOSCOPY TRANSORAL DIAGNOSTIC 01/26/2013 EGD LAPAROSCOPY DIAGNOSTIC 03/04/2011 mild endometriosis, Dr Li, [facility] LAPS SURG CHOLECYSTECTOMY W/CHOLANGIOGRAPHY 06/29/2010 PAST SURGICAL HISTORY OF wisdom teeth x 4 PAST SURGICAL HISTORY OF age 25 cataract surgery bilateral PAST SURGICAL HISTORY OF abnormal cells on cervix PAST SURGICAL HISTORY OF 6 mos old tubes put in ears SALPINGECTOMY 10/2017 Laparoscopic B/l salpingectomy FAMILY HISTORY Problem Relation Age of Onset Diabetes Mother Anxiety disorder Mother Heart Father A Fib Heart Attack Father other (Bladder cancer) Father No Known Problems Sister No Known Problems Sister Cancer Maternal Uncle stomach Ischemic Heart Disease Maternal Uncle Hypertension Maternal Uncle Colon Cancer No Family History Social History Tobacco Use Smoking status: Never Smokeless tobacco: Never Vaping Use Vaping Use: Never used Substance Use Topics Alcohol use: No Drug use: No Current Outpatient Medications Medication Sig MULTIVITAMIN ORAL Take by mouth. divalproex DR (DEPAKOTE) 250 mg EC tablet 2 TABLETS (500 MG ) IN THE AM and 1 tablet (250mg) at night. divalproex DR (DEPAKOTE) 250 mg EC tablet Take 250 mg by mouth twice daily. No current facility-administered medications for this visit. Allergies As of Date: 01/31/2023 Allergen Noted Reaction AUGMENTIN [AMOXICILLIN-POT CLAVUL*12/11/2015 GI Upset CODEINE 02/04/2013 Vomiting LATEX 06/21/2020 Rash MOLD 09/12/2010 Unknown Z KYLE [AZITHROMYCIN] 09/16/2015 Other: See Comments Fully Assessed 01/31/2023 REVIEW OF SYSTEMS Bladder: see hpi.. Expanded ROS: GENERAL: Negative for fever Allergies and current medication updated:Yes EXAM: BP 104/60 Wt 130 lb 1.6 oz (59.0kg) LMP 01/21/2023 GENERAL: pleasant, female in no apparent distress HEENT: Normocephalic and atraumatic NECK: full range of motion DERMATOLOGY: Normal and without lesions ABDOMEN: soft, non-tender, and no masses PELVIC: external genitalia normal, normal Bartholin's glands, urethra, Kerens's glands, no vulvar lesions, no cervical lesions, good vaginal support, physiologic discharge present, normal appearing perineal body and perianal region BIMANUAL: uterus normal size, shape and consistency, no adnexal masses, and Mild tenderness NEURO: alert and oriented x3,exam grossly non-focal EXTREMITIES: normal ASSESSMENT AND PLAN: Encounter Diagnosis ICD-10-CM 1. Pain with urination R30.9 URINE CULTURE GC/CHLAMYDIA DNA DET 2. Vaginal odor N89.8 BACTERIAL VAGINOSIS AMPLIFICATION YOLANDA / TRICHOMONAS AMPLIFICATION GC/CHLAMYDIA DNA DET 3. Ovarian cyst, left N83.[address] scan reviewed. Findings were reviewed with the patient. Physiologic cyst discussed with the patient. No further work-up necessary at this time. She had an ultrasound done in August which had no cyst present. 5. Pyridium ordered for the patient. I discussed using [id number] Azo dual relief yeast/odor. Discussed with the patient I will get the results back until Friday. At this time her urine dip only shows blood and moderate leukocytes. Based on her just finishing her menses this is not significant. Will await cult (more content not included)... [facility] 01-31-2023 History of Present illness Narrative Geriatric Social Worker offered: Patient declines. Kaela Rolle is a 42 year old female who presents for concerns regarding possible UTI or vaginal infection. Patient reports she woke up this morning having the urge to urinate but was only able to dribble. Patient reports she noticed a vaginal odor and some irritation. She feels pelvic discomfort. She reports she is sexually active no new partners. But she would like screened for STDs. Patient denies any changes with soaps or detergents. She states she is just ending her menses. Patient states she was recently diagnosed with a ovarian cyst from a CT scan that was done. Patient reports last night felt cold but denies any fevers. Patient is worried she could have a bladder infection but states she has never had one before. Pt offers no other concerns today. OB History T0 L0 SAB0 IAB0 Ectopic0 Multiple0 Live Births0 Egg Pasteurizer History LMP: 01/21/2023, Having periods Age at Menarche: Age at First : Age at Menopause: Egg Pasteurizer History Comments: Sexual Activity: Not Currently; Male Contraception: Condom PAST MEDICAL HISTORY Diagnosis Date Abdominal pain, unspecified site Acute pharyngitis Dysthymic disorder depression/anxiety Petit mal seizures [address] Dr. Cagle (neurologist)--[place] Unspecified constipation PAST SURGICAL HISTORY Procedure Laterality Date ANORECTAL MANOMETRY 10/14/2022 APPENDECTOMY 03/26/2012 [facility] COLONOSCOPY SCREENING 02/22/2021 Tubular adenoma EGD W/O [facility] SPEC VARICIES INJ 02/22/2021 Normal ESOPHAGOGASTRODUODENOSCOPY TRANSORAL DIAGNOSTIC 01/26/2013 EGD LAPAROSCOPY DIAGNOSTIC 03/04/2011 mild endometriosis, Dr Li, [facility] SURG CHOLECYSTECTOMY W/CHOLANGIOGRAPHY 06/29/2010 PAST SURGICAL HISTORY OF wisdom teeth x 4 PAST SURGICAL HISTORY OF age 25 cataract surgery bilateral PAST SURGICAL HISTORY OF abnormal cells on cervix PAST SURGICAL HISTORY OF 6 mos old tubes put in ears SALPINGECTOMY 10/2017 Laparoscopic B/l salpingectomy FAMILY HISTORY Problem Relation Age of Onset Diabetes Mother Anxiety disorder Mother Heart Father A Fib Heart Attack Father other (Bladder cancer) Father No Known Problems Sister No Known Problems Sister Cancer Maternal Uncle stomach Ischemic Heart Disease Maternal Uncle Hypertension Maternal Uncle Colon Cancer No Family History Social History Tobacco Use Smoking status: Never Smokeless tobacco: Never Vaping Use Vaping Use: Never used Substance Use Topics Alcohol use: No Drug use: No Current Outpatient Medications Medication Sig MULTIVITAMIN ORAL Take by mouth. divalproex DR (DEPAKOTE) 250 mg EC tablet 2 TABLETS (500 MG ) IN THE AM and 1 tablet (250mg) at night. divalproex DR (DEPAKOTE) 250 mg EC tablet Take 250 mg by mouth twice daily. No current facility-administered medications for this visit. Allergies As of Date: 01/31/2023 Allergen Noted Reaction AUGMENTIN [AMOXICILLIN-POT CLAVUL*12/11/2015 GI Upset CODEINE 02/04/2013 Vomiting LATEX 06/21/2020 Rash MOLD 09/12/2010 Unknown Z KYLE [AZITHROMYCIN] 09/16/2015 Other: See Comments Fully Assessed 01/31/2023 REVIEW OF SYSTEMS Bladder: see hpi.. Expanded ROS: GENERAL: Negative for fever Allergies and current medication updated:Yes EXAM: BP 104/60 Wt 130 lb 1.6 oz (59.0kg) LMP 01/21/2023 GENERAL: pleasant, female in no apparent distress HEENT: Normocephalic and atraumatic NECK: full range of motion DERMATOLOGY: Normal and without lesions ABDOMEN: soft, non-tender, and no masses PELVIC: external genitalia normal, normal Bartholin's glands, urethra, Kerens's glands, no vulvar lesions, no cervical lesions, good vaginal support, physiologic discharge present, normal appearing perineal body and perianal region BIMANUAL: uterus normal size, shape and consistency, no adnexal masses, and Mild tenderness NEURO: alert and oriented x3,exam grossly non-focal EXTREMITIES: normal ASSESSMENT AND PLAN: Encounter Diagnosis ICD-10-CM 1. Pain with urination R30.9 URINE CULTURE GC/CHLAMYDIA DNA DET 2. Vaginal odor N89.8 BACTERIAL VAGINOSIS AMPLIFICATION YOLANDA / TRICHOMONAS AMPLIFICATION GC/CHLAMYDIA DNA DET 3. Ovarian cyst, left N83.[address] scan reviewed. Findings were reviewed with the patient. Physiologic cyst discussed with the patient. No further work-up necessary at this time. She had an ultrasound done in August which had no cyst present. 5. Pyridium ordered for the patient. I discussed using [id number] Azo dual relief yeast/odor. Discussed with the patient I will get the results back until Friday. At this time her urine dip only shows blood and moderate leukocytes. Based on her just finishing her menses this is not significant. Will await culture results before treating with any antibiotics. Medical Decision Making: Problems: Low: Acute, uncomplicated illness or injury Data: Unique test result(s) reviewed: 1 Unique test(s) ordered: 3+ Risk: Moderate: Drug management Medical Decision Making Level: 4 - Moderate Ada Lama MD documented in this encounter [facility] 01-30-2023 Note HNO ID: [id number] Author: Rudy Parish APRN.KIDS ACTIVITIES COACH Service: ? Author Type: Nurse Practitioner Type: Progress Notes Filed: 02/03/2023 10:34 AM Note Text: AMBULATORY TELEPHONE VISIT Kaela Rolle has consented to this telephone encounter. Persons Present: patient Chief Complaint/Reason: review CT results HPI: Kaela Rolle is a 42 year old female with a history of pelvic floor dysfunction, pelvic pain, diarrhea, and fecal incontinence. Her CT results were reviewed as noted below: CT A/P 01/14/23: IMPRESSION: 4.3 CM RIGHT OVARIAN/ADNEXAL CYSTIC LESION, NEW SINCE PRIOR HOWEVER MOST COMMONLY REFLECTING A RESOLVING PHYSIOLOGIC HEMORRHAGIC CYST. SONOGRAPHIC FOLLOW-UP COULD BE CLINICALLY CONSIDERED TO ASSESS FOR RESOLUTION. NO ACUTE FINDINGS OR SIGNIFICANT INTERVAL CHANGE IN THE ABDOMEN OR PELVIS OTHERWISE. no cyst noted on pelvic US as of 09/24/22 Assessment: No diagnosis found. Right ovary cyst We discussed that it is normal for ovaries to produce cysts monthly during reproductive age 18-44. Cysts larger than 10cm may require surgical removal. Plan: Follow up with TRACTOR TRAILER MECHANIC to discuss possible pelvic US and further management Follow up with MINOR Osullivan [facility] 01-30-2023 History of Present illness Narrative AMBULATORY TELEPHONE VISIT Kaela Rolle has consented to this telephone encounter. Persons Present: patient Chief Complaint/Reason: review CT results HPI: Kaela Rolle is a 42 year old female with a history of pelvic floor dysfunction, pelvic pain, diarrhea, and fecal incontinence. Her CT results were reviewed as noted below: CT A/P 01/14/23: IMPRESSION: 4.3 CM RIGHT OVARIAN/ADNEXAL CYSTIC LESION, NEW SINCE PRIOR HOWEVER MOST COMMONLY REFLECTING A RESOLVING PHYSIOLOGIC HEMORRHAGIC CYST. SONOGRAPHIC FOLLOW-UP COULD BE CLINICALLY CONSIDERED TO ASSESS FOR RESOLUTION. NO ACUTE FINDINGS OR SIGNIFICANT INTERVAL CHANGE IN THE ABDOMEN OR PELVIS OTHERWISE. no cyst noted on pelvic US as of 09/24/22 Assessment: No diagnosis found. Right ovary cyst We discussed that it is normal for ovaries to produce cysts monthly during reproductive age 18-44. Cysts larger than 10cm may require surgical removal. Plan: Follow up with TRACTOR TRAILER MECHANIC to discuss possible pelvic US and further management Follow up with MINOR Osullivan documented in this encounter [facility] 01-29-2023 Miscellaneous Notes Kaela Rolle [phone], very anxious called again concerning CT results. She is aware you are not on campus today. She is available anytime today & tomorrow after 4:00. Electronically signed by [facility] at 01/29/2023 2:15 PM EDT documented in this encounter [facility] 01-27-2023 Miscellaneous Notes The patient is calling because she hasnt received CT results which was done last month. Please call patients with results at [phone] documented in this encounter [facility] 01-22-2023 Miscellaneous Notes Kaela Aquilino [phone], called for CT results. documented in this encounter [facility] 01-14-2023 Note HNO ID: [id number] Author: RT Ita(R) Service: ? Author Type: Drawer Hardware Worker Type: Progress Notes Filed: 01/14/2023 2:07 PM Note Text: Radiology Service Progress Note DATE OF SERVICE: January 14, 2023 TIME: 2:07 PM PATIENT IDENTITY VERIFICATION COMPLETED USING TWO (2) STANDARD IDENTIFIERS: Name and Date of confirmed by patient verbally. FALL SCREENING: Has the patient had 2 falls in the last year or 1 fall with injury or currently using an Ambulatory Assistive Device (Walker, Cane, Wheelchair, Crutches, etc.)? No PATIENT GENDER DATA: Female. status: : No status: NO. PATIENT RELEVANT IMPLANT DATA REVIEWED: Yes ALLERGIES: Reviewed and unchanged CONTRAST ALLERGY: NO. EXAM: CT -CONTRAST INDUCED NEPHROPATHY RISK FACTORS: Not applicable CREATININE: Creatinine Date Value Ref Range Status 08/21/2022 0.73 0.58 - 0.96 mg/dL Final 05/12/2020 0.78 0.58 - 0.96 mg/dL Final 08/19/2013 0.71 0.70 - 1.40 mg/dL Final Estimated Glomerular Filtration Rate Date Value Ref Range Status 08/21/2022 105 >=60 mL/min/1.73m? Final Comment: Estimated Glomerular Filtration Rate (eGFR) is calculated using the 2020 CKD-EPI creatinine equation. This equation utilizes serum creatinine, sex, and age as parameters. The creatinine assay has traceable calibration to isotope dilution-mass spectrometry. Refer to KDIGO guidelines for clinical interpretation. In patients with unstable renal function, e.g. those with acute kidney injury, the eGFR may not accurately reflect actual GFR. eGFR- Date Value Ref Range Status 05/12/2020 >60 Final P.O.C.T. RESULTS: POC done: Yes, See Lab Tab January 14, 2023 TREATMENT: N/A PERIPHERAL IV DATA: Ambulatory: A peripheral IV was started in the Left antecubital site with a Angio cath: 22 gauge. RADIOLOGY DEPARTMENT: CT; Exam(s) Completed: Abdomen/Pelvis SIGNATURE: RT Everette(R) PATIENT NAME: Kaela Rolle DATE: January 14, 2023 TIME: 2:07 PM [facility] 01-14-2023 History of Present illness Narrative Radiology Service Progress Note DATE OF SERVICE: January 14, 2023 TIME: 2:07 PM PATIENT IDENTITY VERIFICATION COMPLETED USING TWO (2) STANDARD IDENTIFIERS: Name and Date of confirmed by patient verbally. FALL SCREENING: Has the patient had 2 falls in the last year or 1 fall with injury or currently using an Ambulatory Assistive Device (Walker, Cane, Wheelchair, Crutches, etc.)? No PATIENT GENDER DATA: Female. status: : No status: NO. PATIENT RELEVANT IMPLANT DATA REVIEWED: Yes ALLERGIES: Reviewed and unchanged CONTRAST ALLERGY: NO. EXAM: CT -CONTRAST INDUCED NEPHROPATHY RISK FACTORS: Not applicable CREATININE: Creatinine Date Value Ref Range Status 08/21/2022 0.73 0.58 - 0.96 mg/dL Final 05/12/2020 0.78 0.58 - 0.96 mg/dL Final 08/19/2013 0.71 0.70 - 1.40 mg/dL Final Estimated Glomerular Filtration Rate Date Value Ref Range Status 08/21/2022 105 >=60 mL/min/1.73m Final Comment: Estimated Glomerular Filtration Rate (eGFR) is calculated using the 2020 CKD-EPI creatinine equation. This equation utilizes serum creatinine, sex, and age as parameters. The creatinine assay has traceable calibration to isotope dilution-mass spectrometry. Refer to KDIGO guidelines for clinical interpretation. In patients with unstable renal function, e.g. those with acute kidney injury, the eGFR may not accurately reflect actual GFR. eGFR- Date Value Ref Range Status 05/12/2020 >60 Final P.O.C.T. RESULTS: POC done: Yes, See Lab Tab January 14, 2023 TREATMENT: N/A PERIPHERAL IV DATA: Ambulatory: A peripheral IV was started in the Left antecubital site with a Angio cath: 22 gauge. RADIOLOGY DEPARTMENT: CT; Exam(s) Completed: Abdomen/Pelvis SIGNATURE: RT Everette(R) PATIENT NAME: Kaela Rolle DATE: January 14, 2023 TIME: 2:07 PM documented in this encounter [facility] 12-24-2022 Miscellaneous Notes Patient called and cancelled Fructose breath test no reason and did not want to reschedule. Freda Ontiveros MA documented in this encounter [facility] 12-20-2022 Miscellaneous Notes Spoke with patient recommendations given. She wants to seek a second opinion at this time. Pt reported to me last sx were under control with Benefiber. Due to change recommend follow up visit, can be virtual, I have openings this upcoming week. If she has Colestid she can start that again as well and Imodium as needed. Let me know if refills needed. Dinah Hamilton PA-C Patient called in to update that she is still having abdominal cramping and explosive diarrhea at times. Today she is having green shoe string stool. She kept mentioning that she wants to try an antibiotic. Just wants to have this more under control before she starts her new job on Friday. documented in this encounter [facility] 12-20-2022 Note HNO ID: [id number] Author: Rudy Parish APRN.CATHY Service: ? Author Type: Nurse Practitioner Type: Progress Notes Filed: 12/24/2022 8:35 PM Note Text: AMBULATORY TELEPHONE VISIT Kaela Rolle has consented to this telephone encounter. Persons Present: patient Chief Complaint/Reason: follow up fecal incontinence HPI: Kaela Rolle is a 42 year old female with a history of chronic fecal incontinence. She had ARM testing with me on 10/14/22 and last followed up virtually on 11/25/22 to discuss her symptoms. At this time she was continuing to have incontinence of stool each time she urinates. We briefly discussed the option of SNS for fecal incontinence management and an informative packet was mailed to her for review. 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 and is worried about having to make multiple trips to the bathroom -she feels that there is more testing that needs to be done to figure out why she is having frequent diarrhea and green and yellow stools Assessment: -diarrhea -fecal incontinence -abdominal pain -pt would like to be further worked up for diarrhea before moving forward with SNS therapy for fecal incontinence Plan: -imodium 1 tablet before meals and at bedtime -abdominal CT scan for abd pain per patient request -follow up with GI for further work up for diarrhea -follow up with pelvic floor CORS as needed Total Time Spent: 21 minutes Rudy Parish APRN.KIDS ACTIVITIES COACH CORS [facility] 12-20-2022 History of Present illness Narrative AMBULATORY TELEPHONE VISIT Kaela Rolle has consented to this telephone encounter. Persons Present: patient Chief Complaint/Reason: follow up fecal incontinence HPI: Kaela Rolle is a 42 year old female with a history of chronic fecal incontinence. She had ARM testing with me on 10/14/22 and last followed up virtually on 11/25/22 to discuss her symptoms. At this time she was continuing to have incontinence of stool each time she urinates. We briefly discussed the option of SNS for fecal incontinence management and an informative packet was mailed to her for review. Today she reports: -bm frequency/consistency: multiple times per day, formed stool in the AM and then several loose stools throughout the day -Stool color ranges from green, yellow, to brown -Bowel regimen: none -FI: multiple times per day; occurs when she gently strains to urinate - Feels like things are moving too quickly -Did breath tests which were unremarkable -Started taking multi-vitamin -complains of abd pain with eating; LLQ pain, intermittent, cramping -Paternal grandfather had stomach cancer -she is a starting a new [employer] position on Friday and is worried about having to make multiple trips to the bathroom -she feels that there is more testing that needs to be done to figure out why she is having frequent diarrhea and green and yellow stools Assessment: -diarrhea -fecal incontinence -abdominal pain -pt would like to be further worked up for diarrhea before moving forward with SNS therapy for fecal incontinence Plan: -imodium 1 tablet before meals and at bedtime -abdominal CT scan for abd pain per patient request -follow up with GI for further work up for diarrhea -follow up with pelvic floor CORS as needed Total Time Spent: 21 minutes Rudy Parish APRN.CNP CORS documented in this encounter [facility] 12-13-2022 Note HNO ID: [id number] Author: LUIS E Schneider Service: ? Author Type: Clinical Drawer Hardware Worker Type: Progress Notes Filed: 12/13/2022 3:07 PM Note Text: LACTULOSE HYDROGEN BREATH TEST FOR SMALL BOWEL BACTERIAL OVERGROWTH Date: December 13, 2022 Referring Physician: Dinah Hamilton PA-C Chief Complaint Abdominal Pain Nausea Bloating Flatulence/Gas Diarrhea belching Symptoms prior to start of study: Diarrhea, Nausea, Bloating, Flatulence/Gas [] 4 week restrictions [] 72 hour restrictions [] 12 hour fasting [] Followed the special diet Baseline Hydrogen PPM: 5 Methane PPM: 9 Tajkiya Sruthi, CT Lactulose 15mL given at: 835am Start Time:840am 20 minutes Hydrogen PPM: 7 Methane PPM: 8 Nikkiya Sruthi, CT 40 minutes Hydrogen PPM: 6 Methane PPM: 9 Nikkiya Sruthi, CT 1 hour Hydrogen PPM: 7 Methane PPM: 11 Nikkiya Sruthi, CT 1 hour 20 minutes Hydrogen PPM: 6 Methane PPM: 10 Nikkiya Sruthi, CT 1 hour, 40 minutes Hydrogen PPM: 7 Methane PPM: 11 Nikkiya Sruthi, CT 2 hours Hydrogen PPM: 8 Methane PPM: 15 Nikkiya Sruthi, CT 2 hours, 20 minutes Hydrogen PPM: 4 Methane PPM: 10 Nikkiya Sruthi, CT 2 hours, 40 minutes Hydrogen PPM: 3 Methane PPM: 8 Nikkiya Sruthi, CT 3 hours Hydrogen PPM: 6 Methane PPM: 10 Nikkiya Sruthi, CT Symptoms developed during the study period: None Patient Results Preliminary Test Results (not given to patient): Pending Anthony Negro, CT [facility] 12-13-2022 History of Present illness Narrative LACTULOSE HYDROGEN BREATH TEST FOR SMALL BOWEL BACTERIAL OVERGROWTH Date: December 13, 2022 Referring Physician: Dinah Hamilton PA-C Chief Complaint Abdominal Pain Nausea Bloating Flatulence/Gas Diarrhea belching Symptoms prior to start of study: Diarrhea, Nausea, Bloating, Flatulence/Gas [] 4 week restrictions [] 72 hour restrictions [] 12 hour fasting [] Followed the special diet Baseline Hydrogen PPM: 5 Methane PPM: 9 Nikkiya Sruthi, CT Lactulose 15mL given at: 835am Start Time:840am 20 minutes Hydrogen PPM: 7 Methane PPM: 8 Nikkiya Sruthi, CT 40 minutes Hydrogen PPM: 6 Methane PPM: 9 Nikkiya Sruthi, CT 1 hour Hydrogen PPM: 7 Methane PPM: 11 Nikkiya Sruthi, CT 1 hour 20 minutes Hydrogen PPM: 6 Methane PPM: 10 Nikkiya Sruthi, CT 1 hour, 40 minutes Hydrogen PPM: 7 Methane PPM: 11 Nikkiya Sruthi, CT 2 hours Hydrogen PPM: 8 Methane PPM: 15 LUIS E Schneider 2 hours, 20 minutes Hydrogen PPM: 4 Methane PPM: 10 LUIS E Schneider 2 hours, 40 minutes Hydrogen PPM: 3 Methane PPM: 8 LUIS E Schneider 3 hours Hydrogen PPM: 6 Methane PPM: 10 LUIS E Schneider Symptoms developed during the study period: None Patient Results Preliminary Test Results (not given to patient): Pending LUIS E Schneider documented in this encounter [facility] 12-12-2022 Miscellaneous Notes Patient returned call and said she never received prep instructions for breath test for tomorrow that Mariela said she would send to her. She really wants the Lactulose test done instead of Fructose. She will get this rescheduled when she comes in tomorrow. Emailed prep instructions to patient. Brenda Villarreal Called patient inregards to her having 2 test scheduled on the same day which I made jocelyne aware of reading all of the Instructions provided and will make the determination on which test she would like to have conducted and will only be one test which was explained. Patient declined setting up a MyChart LUIS E Schneider documented in this encounter [facility] 11-25-2022 Note HNO ID: [id number] Author: Rudy Parish APRN.KIDS ACTIVITIES COACH Service: ? Author Type: Nurse Practitioner Type: Progress Notes Filed: 11/25/2022 2:21 PM Note Text: AMBULATORY TELEPHONE VISIT Kaela Rolle has consented to this telephone encounter. Persons Present: patient Chief Complaint/Reason: follow up diarrhea and fecal incontinence HPI: Kaela Rolle is a 42 year old female with a history of chronic fecal incontinence. Last seen in the office by me on 10/14/22 for ARM testing and consultation: -fecal incontinence since 07/2022 -straining and incomplete defecation -FI multiple times daily, small amount to full BM --high tone --blunted sensation --RAIR intact, unable to expel balloon --equivocal movement on EMG -she was encouraged to begin PFPT, fiber and imodium, bowel diary Today they report: bm frequency/consistency: multiple times/day, loose; lots of urgency Bowel regimen:fiber daily Strains to urinate and every time she urinates a small amount of yellow liquid discharge and small amount of fluffy poop comes out Incomplete defecation:yes Trial of PT/# of sessions:4 GI has scheduled Breath tests and SIBO testing She states that she and her boyfriend got COVID second week of July and has been having the following symptoms: yellow liquid stools with urgency and incontinence, increased bloating, gas, and belching, abdominal pain Did not fill out bowel diary and states that she can't fill it out because she is going so often Data Reviewed: ARM testing and PFPT notes Assessment: Fecal incontinence and pelvic floor dysfunction Plan: Continue benefiber daily Will send SNS packet as discussed for patient to review Obtain testing as ordered by Keiry Hamilton PA-C Follow up in 4 weeks via phone call to discuss SNS Total Time Spent: 20 minutes Rudy Parish APRN.KIDS ACTIVITIES [facility] 11-25-2022 History of Present illness Narrative AMBULATORY TELEPHONE VISIT Kaela Rolle has consented to this telephone encounter. Persons Present: patient Chief Complaint/Reason: follow up diarrhea and fecal incontinence HPI: Kaela Rolle is a 42 year old female with a history of chronic fecal incontinence. Last seen in the office by me on 10/14/22 for ARM testing and consultation: -fecal incontinence since 07/2022 -straining and incomplete defecation -FI multiple times daily, small amount to full BM --high tone --blunted sensation --RAIR intact, unable to expel balloon --equivocal movement on EMG -she was encouraged to begin PFPT, fiber and imodium, bowel diary Today they report: bm frequency/consistency: multiple times/day, loose; lots of urgency Bowel regimen:fiber daily Strains to urinate and every time she urinates a small amount of yellow liquid discharge and small amount of fluffy poop comes out Incomplete defecation:yes Trial of PT/# of sessions:4 GI has scheduled Breath tests and SIBO testing She states that she and her boyfriend got COVID second week of July and has been having the following symptoms: yellow liquid stools with urgency and incontinence, increased bloating, gas, and belching, abdominal pain Did not fill out bowel diary and states that she can't fill it out because she is going so often Data Reviewed: ARM testing and PFPT notes Assessment: Fecal incontinence and pelvic floor dysfunction Plan: Continue benefiber daily Will send SNS packet as discussed for patient to review Obtain testing as ordered by Keiry Hamilton PA-C Follow up in 4 weeks via phone call to discuss SNS Total Time Spent: 20 minutes Rudy Parish APRN.CNP CORS documented in this encounter [facility] 11-17-2022 Miscellaneous Notes Reviewed. Dinah Hamilton PA-C JANICE Shi, [facility] states [facility] no longer provide this test BREATH TEST - LACTULOSE Thank you documented in this encounter [facility] 11-15-2022 Miscellaneous Notes Left on patients voicemail. Please inform pt I have ordered breath testing to rule out SIBO or small intestinal bacterial overgrowth as well as fructose intolerance that could be contributing to sx thank you Dinah Hamilton PA-C Seen this week in office, Patient call, GES is normal, .. asking what now? She is currently in PT for the PFD but issues are the same. She states, Im just not having bowel movements Please advise. Sarita Arboleda CMA documented in this encounter [facility] 11-14-2022 History of Present illness Narrative RADIOLOGY SERVICE PROGRESS NOTE SERVICE DATE: 11/14/2022 SERVICE TIME: 9:10 AM PATIENT IDENTITY VERIFICATION COMPLETED USING TWO (2) STANDARD IDENTIFIERS: Name and Date of confirmed by patient verbally and Name and Date of confirmed by identification band FALL SCREENING: Has the patient had 2 falls in the last year or 1 fall with injury or currently using an Ambulatory Assistive Device (Walker, Cane, Wheelchair, Crutches, etc.)? No PATIENT GENDER DATA: .female : No ALLERGIES: Reviewed and unchanged MEDICATIONS REVIEWED: Not applicable PATIENT RELEVANT IMPLANT DATA REVIEWED: Not Applicable CREATININE: Creatinine Date Value Ref Range Status 08/21/2022 0.73 0.58 - 0.96 mg/dL Final 05/12/2020 0.78 0.58 - 0.96 mg/dL Final 08/19/2013 0.71 0.70 - 1.40 mg/dL Final Estimated Glomerular Filtration Rate Date Value Ref Range Status 08/21/2022 105 >=60 mL/min/1.73m Final Comment: Estimated Glomerular Filtration Rate (eGFR) is calculated using the 2020 CKD-EPI creatinine equation. This equation utilizes serum creatinine, sex, and age as parameters. The creatinine assay has traceable calibration to isotope dilution-mass spectrometry. Refer to KDIGO guidelines for clinical interpretation. In patients with unstable renal function, e.g. those with acute kidney injury, the eGFR may not accurately reflect actual GFR. eGFR- Date Value Ref Range Status 05/12/2020 >60 Final P.O.C.T. RESULTS: N/A November 14, [address] PERFORMED: No IV SITE: NM only - not applicable, oral or physician administered agents given to patient POST EXAM PIV STATUS: Not applicable PROCEDURE TYPE: NM GET: 1.1 mCi Tc99m SULFUR COLLOID was administered orally via 4 ounces of Egg Beaters,2 pieces of toast, 1 ounce of jelly with 8 ounces of water orally ADMINISTRATION TIME: 07:45 PATIENT DISCHARGED TO: Ambulatory patient, left [place] department area. A Diagnostic radioactive procedure has taken place, with no further precautions necessary other than routine body substance precautions. More information regarding radiation safety can be found using this link: [email or web address] SIGNATURE: LUIS E Zavala PATIENT NAME: Kaela Rolle DATE: November 14, 2022 TIME: 9:10 AM PAGER/CONTACT #: documented in this encounter [facility] 11-12-2022 Note HNO ID: [id number] Author: Abiel Velarde PT Service: ? Author Type: Physical Therapist Type: Progress Notes Filed: 01/24/2023 11:28 AM Note Text: 01/24/2023 [facility] PHYSICAL THERAPY DISCONTINUANCE OF CARE Plan of Care Period: Start of Care Date: 10/25/22 Last Visit Date: 11/12/2022 Therapy Program: The following is a summary of the interventions provided for this episode of care; Therapeutic exercise, Manual therapy, and Self-group home management Assessment: Based on most recent visit, patient was progressing as expected toward functional goals based on documented subjective information on progress. Unable to formally assess goal achievement, as patient has not returned to therapy or scheduled additional follow-up appointments. Reason for Discontinuation of Care: Patient has not returned to therapy or scheduled additional follow-up appointments. Abiel Velarde PT Episode Visit Count: 4 Therapist That Will Accept/Oversee The Plan Of Care: Abiel Velarde Start of Care Date: 10/25/22 Onset Date: 07/27/22 Patient Identified by Name and Date of : Yes [facility] PHYSICAL THERAPY TREATMENT NOTE ASSESSMENT: Kaela Rolel tolerated the session with decreased symptoms. She demonstrated difficulty with unchanged bowel function and continued feeling of nausea after eating. The patient will continue to benefit from ongoing skilled physical therapy to progress toward set goals. PLAN FOR NEXT VISIT: reassessment SUBJECTIVE: Patient Reason for Visit: Pt reports only yellow bile comes out when she tries to have a bowel movement. Pt reports seeing GI today and has a gastric emptying solid test scheduled for this Friday to explore this further. Pt reports continued feeling of nausea after eating. Pt reports good compliance with HEP. Pt reports slight ability to pass small BMs immediatlely after colon massage, otherwise no change with manual work. Pain: Pain Pain Level: 6 Pain Location: Abdomen Description: Sharp;Cramping Frequency: Intermittent Post Treatment Pain Post Treatment Pain Level: 0 OBJECTIVE MEASURES WITH LEVEL OF FUNCTION: Pelvic Floor Difficulty evacuating / Excessive Straining: Sometimes Incomplete emptying: Yes Pelvic Floor Muscle Assessment Consent for pelvic assessment/testing and treatment: Patient was educated regarding pelvic floor physical therapy assessment/treatment which may include pelvic floor and girdle muscle assessment externally or internally (vaginal or rectal approach).;Patient verbalized consent for the above treatment approaches today. Patient understands they have control of the treatment and an opportunity to stop treatment at any time. Pelvic Floor Manual Assessment External Pelvic Region Tenderness/ Hyperactivity - Trunk: Upper abdominals;Lower abdominals Upper abdominals: Bilateral (1/) Lower abdominals: Bilateral (1/) Tissue Restriction/Tenderness Scale: 1= mild, 2= moderate, 3= severe TREATMENT: Therapeutic Exercise: 1: *posterior pelvic tilt, 2x10 2: *LTR, [id number] each 3: *clamshells, 2x10 each Skilled Intervention: Patient was educated in proper exercise technique and purpose for exercises. Reviewed and educated patient on additions/changes for home exercise program as above (*). Skilled judgment was provided in selection of appropriate interventions. Provided written instruction for home exercise program to facilitate proper performance and compliance. Manual Therapy: 1: MFR to B upper and lower abdominals, supine Skilled Intervention: Manual skills to improve joint mobility, ROM, and decrease pain. Utilized anatomy knowledge of the therapist, and assessment of patient's response to intervention. Billing Therapeutic Exercise Treatment Minutes: 18 Manual TherapyTreatment Minutes: 24 Total Treatment Time Minutes (timed/untimed): 42 Abiel Velarde, PT [facility] 11-12-2022 History of Present illness Narrative Episode Visit Count: 4 Therapist That Will Accept/Oversee The Plan Of Care: Abiel Velarde Start of Care Date: 10/25/22 Onset Date: 07/27/22 Patient Identified by Name and Date of : Yes [facility] PHYSICAL THERAPY TREATMENT NOTE ASSESSMENT: Kaela Rolle tolerated the session with decreased symptoms. She demonstrated difficulty with unchanged bowel function and continued feeling of nausea after eating. The patient will continue to benefit from ongoing skilled physical therapy to progress toward set goals. PLAN FOR NEXT VISIT: reassessment SUBJECTIVE: Patient Reason for Visit: Pt reports only yellow bile comes out when she tries to have a bowel movement. Pt reports seeing GI today and has a gastric emptying solid test scheduled for this Friday to explore this further. Pt reports continued feeling of nausea after eating. Pt reports good compliance with HEP. Pt reports slight ability to pass small BMs immediatlely after colon massage, otherwise no change with manual work. Pain: Pain Pain Level: 6 Pain Location: Abdomen Description: Sharp;Cramping Frequency: Intermittent Post Treatment Pain Post Treatment Pain Level: 0 OBJECTIVE MEASURES WITH LEVEL OF FUNCTION: Pelvic Floor Difficulty evacuating / Excessive Straining: Sometimes Incomplete emptying: Yes Pelvic Floor Muscle Assessment Consent for pelvic assessment/testing and treatment: Patient was educated regarding pelvic floor physical therapy assessment/treatment which may include pelvic floor and girdle muscle assessment externally or internally (vaginal or rectal approach).;Patient verbalized consent for the above treatment approaches today. Patient understands they have control of the treatment and an opportunity to stop treatment at any time. Pelvic Floor Manual Assessment External Pelvic Region Tenderness/ Hyperactivity - Trunk: Upper abdominals;Lower abdominals Upper abdominals: Bilateral (1/1) Lower abdominals: Bilateral (1/1) Tissue Restriction/Tenderness Scale: 1= mild, 2= moderate, 3= severe TREATMENT: Therapeutic Exercise: 1: *posterior pelvic tilt, 2x10 2: *LTR, 9s00wrm each 3: *clamshells, 2x10 each Skilled Intervention: Patient was educated in proper exercise technique and purpose for exercises. Reviewed and educated patient on additions/changes for home exercise program as above (*). Skilled judgment was provided in selection of appropriate interventions. Provided written instruction for home exercise program to facilitate proper performance and compliance. Manual Therapy: 1: MFR to B upper and lower abdominals, supine Skilled Intervention: Manual skills to improve joint mobility, ROM, and decrease pain. Utilized anatomy knowledge of the therapist, and assessment of patient's response to intervention. Billing Therapeutic Exercise Treatment Minutes: 18 Manual TherapyTreatment Minutes: 24 Total Treatment Time Minutes (timed/untimed): 42 Abiel Velarde PT documented in this encounter [facility] 11-12-2022 Note HNO ID: [id number] Author: Dinah Hamilton PA-C Service: ? Author Type: Physician Rental Manager Type: Progress Notes Filed: 11/12/2022 12:10 PM Note Text: CHIEF COMPLAINT: Patient presents with: Recheck: Concerned with Bile from having Gallbladder removed, Full feeling quickly, gas, belching, Nausea HPI Kaela Rolle is a 42 year old female here today for Recheck (Concerned with Bile from having Gallbladder removed ). Surg hx positive for appendectomy, reza, salpingectomy Seen last in GI office for diarrhea. EGD/Colon 01/2021 essentially unremarkable, negative for Celiac. No random colon bxs obtained. CT abd 08/2022 showed no acute process. ID stool studies 07/2022 negative. Food sensitivity panel, calprotectin, elastase all negative 09/2022, anorectal manometry showed evidence of PFD. Started on Colestid last OV which she includes she is no longer taking as it did not work well for her. States diarrhea is currently under control. Taking Benefiber daily. Feels as though PT for PFD is helping. Having a lot of nausea, early satiety, includes it is affecting quality of life. EGD/Colon 01/2021 CONVERTED FINAL DIAGNOSIS 1. Duodenum, second portion, biopsy (A) - Duodenal mucosa with no pathologic diagnostic abnormality; negative for celiac disease, granulomas or dysplasia. 2. Stomach, biopsy (B) - Gastric oxyntic-type mucosa with no pathologic diagnostic abnormality; see comment. 3. Colon, transverse polyp, biopsy (C) - Tubular adenoma. CT abd 08/2022 IMPRESSION: No acute process in the abdomen or pelvis OV 10/04/2022 Kaela Rolle is a 42 year old female who presents for Diarrhea (Has been going on for [address] 09/17/22 Stool 08/21/22). Surg hx positive for appendectomy, reza, salpingectomy. EGD/Colon 01/2021 essentially unremarkable, negative for Celiac. No random colon bxs obtained. CT abd 08/2022 showed no acute process. ID stool studies 07/2022 negative. Bms are 3-4 per day, loose to watery, no blood, unchanged with eating. Struggling with fecal yellow watery discharge, intermittent incontinence, urgency with Bms, painful, rectal pain/pruritus. No children, no h/o vaginal deliveries. H/o urinary incontinence. Unintentional weight loss of 10 lbs since sx started. EGD/Colon 01/2021 CONVERTED FINAL DIAGNOSIS 1. Duodenum, second portion, biopsy (A) - Duodenal mucosa with no pathologic diagnostic abnormality; negative for celiac disease, granulomas or dysplasia. 2. Stomach, biopsy (B) - Gastric oxyntic-type mucosa with no pathologic diagnostic abnormality; see comment. 3. Colon, transverse polyp, biopsy (C) - Tubular adenoma. CT abd 08/2022 IMPRESSION: No acute process in the abdomen or pelvis Current Outpatient Medications Medication Sig divalproex DR (DEPAKOTE) 250 mg EC tablet 2 TABLETS (500 MG ) IN THE AM and 1 tablet (250mg) at night. divalproex DR (DEPAKOTE) 250 mg EC tablet Take 250 mg by mouth twice daily. loperamide HCl (IMODIUM) 2 mg tab Take 1 tablet by mouth as needed. (Patient not taking: Reported on 11/12/2022) colestipol (COLESTID) 1 gram tablet Take 1 tablet by mouth twice daily. (Patient not taking: Reported on 11/12/2022) No current facility-administered medications for this visit. ALLERGIES Allergen Reactions Augmentin [Amoxicil* GI Upset Codeine Vomiting Latex Rash Mold Unknown Z Kyle [Azithromycin] Other: See Comments Interferes with Depakote Social History Tobacco Use Smoking status: Never Smokeless tobacco: Never Vaping Use Vaping Use: Never used Substance Use Topics Alcohol use: No Drug use: No PAST MEDICAL HISTORY Diagnosis Date Abdominal pain, unspecified site Acute pharyngitis Dysthymic disorder depression/anxiety Petit mal seizures [address] Dr. Cagle (neurologist)--[place] Unspecified constipation PAST SURGICAL HISTORY Procedure Laterality Date ANORECTAL MANOMETRY 10/14/2022 APPENDECTOMY 03/26/2012 [facility] COLONOSCOPY SCREENING 02/22/2021 Tubular adenoma EGD W/O [facility] SPEC VARICIES INJ 02/22/2021 Normal ESOPHAGOGASTRODUODENOSCOPY TRANSORAL DIAGNOSTIC 01/26/2013 EGD LAPAROSCOPY DIAGNOSTIC 03/04/2011 mild endometriosis, Dr Li, [facility] CHOLECYSTECTOMY W/CHOLANGIOGRAPHY 06/29/2010 PAST SURGICAL HISTORY OF wisdom teeth x 4 PAST SURGICAL HISTORY OF age 25 cataract surgery bilateral PAST SURGICAL HISTORY OF abnormal cells on cervix PAST SURGICAL HISTORY OF 6 mos old tubes put in ears SALPINGECTOMY 10/2017 Laparoscopic B/l salpingectomy FAMILY HISTORY Problem Relation Age of Onset Diabetes Mother Anxiety disorder Mother Heart Father A Fib Heart Attack Father other (Bladder cancer) Father No Known Problems Sister No Known Problems Sister Cancer Maternal Uncle stomach Ischemic Heart Disease Maternal Uncle Hypertension Maternal Uncle Colon Cancer No Family History REVIEW OF SYSTEMS Review of Systems All other systems revi (more content not included)... [facility] 11-12-2022 History of Present illness Narrative CHIEF COMPLAINT: Patient presents with: Recheck: Concerned with Bile from having Gallbladder removed, Full feeling quickly, gas, belching, Nausea HPI Kaela Rolle is a 42 year old female here today for Recheck (Concerned with Bile from having Gallbladder removed ). Surg hx positive for appendectomy, reza, salpingectomy Seen last in GI office for diarrhea. EGD/Colon 01/2021 essentially unremarkable, negative for Celiac. No random colon bxs obtained. CT abd 08/2022 showed no acute process. ID stool studies 07/2022 negative. Food sensitivity panel, calprotectin, elastase all negative 09/2022, anorectal manometry showed evidence of PFD. Started on Colestid last OV which she includes she is no longer taking as it did not work well for her. States diarrhea is currently under control. Taking Benefiber daily. Feels as though PT for PFD is helping. Having a lot of nausea, early satiety, includes it is affecting quality of life. EGD/Colon 01/2021 CONVERTED FINAL DIAGNOSIS 1. Duodenum, second portion, biopsy (A) - Duodenal mucosa with no pathologic diagnostic abnormality; negative for celiac disease, granulomas or dysplasia. 2. Stomach, biopsy (B) - Gastric oxyntic-type mucosa with no pathologic diagnostic abnormality; see comment. 3. Colon, transverse polyp, biopsy (C) - Tubular adenoma. CT abd 08/2022 IMPRESSION: No acute process in the abdomen or pelvis OV 10/04/2022 Kaela Rolle is a 42 year old female who presents for Diarrhea (Has been going on for [address] 09/17/22 Stool 08/21/22). Surg hx positive for appendectomy, reza, salpingectomy. EGD/Colon 01/2021 essentially unremarkable, negative for Celiac. No random colon bxs obtained. CT abd 08/2022 showed no acute process. ID stool studies 07/2022 negative. Bms are 3-4 per day, loose to watery, no blood, unchanged with eating. Struggling with fecal yellow watery discharge, intermittent incontinence, urgency with Bms, painful, rectal pain/pruritus. No children, no h/o vaginal deliveries. H/o urinary incontinence. Unintentional weight loss of 10 lbs since sx started. EGD/Colon 01/2021 CONVERTED FINAL DIAGNOSIS 1. Duodenum, second portion, biopsy (A) - Duodenal mucosa with no pathologic diagnostic abnormality; negative for celiac disease, granulomas or dysplasia. 2. Stomach, biopsy (B) - Gastric oxyntic-type mucosa with no pathologic diagnostic abnormality; see comment. 3. Colon, transverse polyp, biopsy (C) - Tubular adenoma. CT abd 08/2022 IMPRESSION: No acute process in the abdomen or pelvis Current Outpatient Medications Medication Sig divalproex DR (DEPAKOTE) 250 mg EC tablet 2 TABLETS (500 MG ) IN THE AM and 1 tablet (250mg) at night. divalproex DR (DEPAKOTE) 250 mg EC tablet Take 250 mg by mouth twice daily. loperamide HCl (IMODIUM) 2 mg tab Take 1 tablet by mouth as needed. (Patient not taking: Reported on 11/12/2022) colestipol (COLESTID) 1 gram tablet Take 1 tablet by mouth twice daily. (Patient not taking: Reported on 11/12/2022) No current facility-administered medications for this visit. ALLERGIES Allergen Reactions Augmentin [Amoxicil* GI Upset Codeine Vomiting Latex Rash Mold Unknown Z Kyle [Azithromycin] Other: See Comments Interferes with Depakote Social History Tobacco Use Smoking status: Never Smokeless tobacco: Never Vaping Use Vaping Use: Never used Substance Use Topics Alcohol use: No Drug use: No PAST MEDICAL HISTORY Diagnosis Date Abdominal pain, unspecified site Acute pharyngitis Dysthymic disorder depression/anxiety Petit mal seizures [address] Dr[address] Cagle (neurologist)--T[place] Unspecified constipation PAST SURGICAL HISTORY Procedure Laterality Date ANORECTAL MANOMETRY 10/14/2022 APPENDECTOMY 03/26/2012 [facility] COLONOSCOPY SCREENING 02/22/2021 Tubular adenoma EGD W/O [facility] SPEC VARICIES INJ 02/22/2021 Normal ESOPHAGOGASTRODUODENOSCOPY TRANSORAL DIAGNOSTIC 01/26/2013 EGD LAPAROSCOPY DIAGNOSTIC 03/04/2011 mild endometriosis, Dr Li, [facility] CHOLECYSTECTOMY W/CHOLANGIOGRAPHY 06/29/2010 PAST SURGICAL HISTORY OF wisdom teeth x 4 PAST SURGICAL HISTORY OF age 25 cataract surgery bilateral PAST SURGICAL HISTORY OF abnormal cells on cervix PAST SURGICAL HISTORY OF 6 mos old tubes put in ears SALPINGECTOMY 10/2017 Laparoscopic B/l salpingectomy FAMILY HISTORY Problem Relation Age of Onset Diabetes Mother Anxiety disorder Mother Heart Father A Fib Heart Attack Father other (Bladder cancer) Father No Known Problems Sister No Known Problems Sister Cancer Maternal Uncle stomach Ischemic Heart Disease Maternal Uncle Hypertension Maternal Uncle Colon Cancer No Family History REVIEW OF SYSTEMS Review of Systems All other systems reviewed and are negative. PHYSICAL EXAM BP 114/72 Pulse 85 Ht 5' 7 (1.70m) Wt 129 lb 8 oz (58.7kg) LMP 09/17/2022 BMI 20.28 kg/(m^2). Physical Exam Constitutional: General: She is not in acute distress. Appearance: Normal appearance. She is normal weight. She is not ill-appearing, toxic-appearing or diaphoretic. HENT: Head: Normocephalic and atraumatic. Nose: Nose normal. Eyes: General: No scleral icterus. Right eye: No discharge. Left eye: No discharge. Extraocular Movements: Extraocular movements intact. Conjunctiva/sclera: Conjunctivae normal. Pupils: Pupils are equal, round, and reactive to light. Cardiovascular: Rate and Rhythm: Normal rate and regular rhythm. Pulses: Normal pulses. Heart sounds: Normal heart sounds. No murmur heard. No friction rub. No gallop. Pulmonary: Effort: No respiratory distress. Breath sounds: Normal breath sounds. No stridor. No wheezing, rhonchi or rales. Chest: Chest wall: No tenderness. Abdominal: General: Abdomen is flat. Bowel sounds are normal. There is no distension. Palpations: Abdomen is soft. There is no mass. Tenderness: There is no abdominal tenderness. There is no right CVA tenderness, left CVA tenderness, guarding or rebound. Hernia: No hernia is present. Musculoskeletal: General: Normal range of motion. Cervical back: Normal range of motion and neck supple. Skin: General: Skin is warm and dry. Neurological: General: No focal deficit present. Mental Status: She is alert and oriented to person, place, and time. Psychiatric: Mood and Affect: Mood normal. Behavior: Behavior normal. Assessment/Plan (R19.5) Loose stools (primary encounter diagnosis) (Z90.49) Status post cholecystectomy (M62.89) Pelvic floor dysfunction in female 1. Loose stools - Negative colonoscopy (no random biopsies), stool studies, food sensitivity panel, Celiac serology - States sx of diarrhea are under control with Benefiber - Reports h/o nausea, early satiety. Advised GES which pt is agreeable to, declined chance of 2. Status post cholecystectomy 3. Pelvic floor dysfunction in female - Following with PT with noticeable improvement Follow up in office PRN. I spent a total of 20 minutes on the date of the service which included preparing to see the patient, [id number] patient care, completing clinical documentation, obtaining and/or reviewing separately obtained history, performing a medically appropriate examination, counseling and educating the patient/family/caregiver, ordering medications, tests, or procedures, communicating with other HCPs (not separately reported), independently interpreting results (not separately reported), communicating results to the patient/family/caregiver, and care coordination (not separately reported). Dinah Hamilton PA-C November 12, 2022 11:58 AM documented in this encounter [facility] 11-05-2022 History of Present illness Narrative Episode Visit Count: 3 Therapist That Will Accept/Oversee The Plan Of Care: Abiel Velarde Start of Care Date: 10/25/22 Onset Date: 07/27/22 Patient Identified by Name and Date of : Yes REHABILITATION AND SPORTS THERAPY PHYSICAL THERAPY TREATMENT NOTE ASSESSMENT: Kaela Rolle tolerated the session with no issues. She demonstrated difficulty with unchanged bowel function, improvements in ability to start a stream of urine. The patient will continue to benefit from ongoing skilled physical therapy to progress toward set goals. PLAN FOR NEXT VISIT: progress exercises as tolerated SUBJECTIVE: Patient Reason for Visit: Pt reports feeling like she pulled a muscle with the piriformis stretch, ambulates into appointment today with a limp. Pt reports not performing other exercises either due to pain. Pain: Pain Pain Level: 4 Pain Location: Leg - Left Description: Sharp Frequency: Intermittent Post Treatment Pain Post Treatment Pain Level: No Change OBJECTIVE MEASURES WITH LEVEL OF FUNCTION: Pelvic Floor Difficulty starting stream: No Incomplete emptying: Sometimes Difficulty evacuating / Excessive Straining: Sometimes Incomplete emptying: Yes Pelvic Floor Muscle Assessment Consent for pelvic assessment/testing and treatment: Patient was educated regarding pelvic floor physical therapy assessment/treatment which may include pelvic floor and girdle muscle assessment externally or internally (vaginal or rectal approach).;Patient verbalized consent for the above treatment approaches today. Patient understands they have control of the treatment and an opportunity to stop treatment at any time. Pelvic Floor Manual Assessment External Pelvic Region Tenderness/ Hyperactivity - Trunk: Upper abdominals;Lower abdominals Upper abdominals: Bilateral (1/0) Lower abdominals: Bilateral (1/0) Tissue Restriction/Tenderness Scale: 1= mild, 2= moderate, 3= severe TREATMENT: Manual Therapy: 1: MFR to B upper and lower abdominals, supine 2: *self-colon massage, proper direction for bowel health Skilled Intervention: Manual skills to improve joint mobility, ROM, and decrease pain. Utilized anatomy knowledge of the therapist, and assessment of patient's response to intervention. Self-Jail Management: 1: Reviewed importance of gentle stretching, only stretching to the point of the first feeling of a stretch, importance of backing off from an exercise if it causes pain 2: Reviewed strategies to improve leg pain: gentle movements, ice, avoiding prolonged positions 3: Reviewed toileting techniques to fully empty bowels without straining Skilled Intervention: Skilled judgment in the selection of proper modification for activity of daily living/home management based on clinical presentation, deficits, and needs. Billing Manual TherapyTreatment Minutes: 17 Self-Care/Home Management Treatment Minutes: 25 Total Treatment Time Minutes (timed/untimed): 42 Abiel Velarde PT documented in this encounter [facility] 11-01-2022 History of Present illness Narrative Episode Visit Count: 2 Therapist That Will Accept/Oversee The Plan Of Care: Abiel Velarde Start of Care Date: 10/25/22 Onset Date: 07/27/22 Patient Identified by Name and Date of : Yes REHABILITATION AND SPORTS THERAPY PHYSICAL THERAPY TREATMENT NOTE ASSESSMENT: Kaela Rolle tolerated the session with no issues. She demonstrated improvements in pelvic floor muscle coordination by performing both a pelvic floor muscle contraction and lengthening with visual assistance from biofeedback. The patient will continue to benefit from ongoing skilled physical therapy to progress toward set goals. PLAN FOR NEXT VISIT: progress exercises as tolerated SUBJECTIVE: Patient Reason for Visit: Pt reports taking benefiber every day and has noticed an improvement in FI. Pt reports good compliance with HEP, feels more comfortable with PF ROM. Pain: Pain Pain Level: 0 Post Treatment Pain Post Treatment Pain Level: 0 OBJECTIVE MEASURES WITH LEVEL OF FUNCTION: Pelvic Floor Difficulty evacuating / Excessive Straining: Sometimes Incomplete emptying: Yes Fecal incontinence: Yes Solid stool: 2 or more times per week Pelvic Floor Surface EMG: Patient Position: sidelying Rest tone: 5 uV Flick strength: 10 uV Pt performed 3 quick flicks within 10 sec. Pt able to hold a 10 uV pelvic floor contraction for 2 seconds before demonstrating muscle fatigue. Pt demonstrates good ability to perform both pelvic floor muscle contraction and lengthening. TREATMENT: Therapeutic Exercise: 1: Reviewed pelvic floor ROM with visual assistance from biofeedback 2: Reviewed diaphragmatic breathing (max verbal, tactile cueing) 3: *bridge with glute activation, 2x10 4: *BKTC stretch, [id number] 5: *piriformis stretch, [id number] each Skilled Intervention: Patient was educated in proper exercise technique and purpose for exercises. Reviewed and educated patient on additions/changes for home exercise program as above (*). Skilled judgment was provided in selection of appropriate interventions. Provided written instruction for home exercise program to facilitate proper performance and compliance. Billing Therapeutic Exercise Treatment Minutes: 42 Total Treatment Time Minutes (timed/untimed): 42 Abiel Velarde PT documented in this encounter [facility] documented as of this encounter (statuses as of 05/12/2023) [facility]12[facility] History of Past illness Narrative* Problem Noted Date Diagnosed Date Resolved Date Full incontinence of feces 10/25/2022 0 05/08/2023 Hematuria 10/16/2020 05/08/2023 Unspecified constipation 04/05/2008 Abdominal pain, unspecified site 04/05/2008 05/08/2023 Rash and other nonspecific skin eruption 04/05/2008 05/08/2023 documented as of this encounter (statuses as of 06/12/2023) [facility] History of Past illness Narrative* Problem Noted Date Diagnosed Date Resolved Date Full incontinence of feces 10/25/2022 0 05/08/2023 Hematuria 10/16/2020 05/08/2023 Unspecified constipation 04/05/2008 Abdominal pain, unspecified site 04/05/2008 05/08/2023 Rash and other nonspecific skin eruption 04/05/2008 05/08/2023 documented as of this encounter (statuses as of 08/31/2023) [facility] History of Past illness Narrative* Problem Noted Date Diagnosed Date Resolved Date Full incontinence of feces 10/25/2022 0 05/08/2023 Hematuria 10/16/2020 05/08/2023 Unspecified constipation 04/05/2008 Abdominal pain, unspecified site 04/05/2008 05/08/2023 Rash and other nonspecific skin eruption 04/05/2008 05/08/2023 documented as of this encounter (statuses as of 08/31/2023) [facility] History of Past illness Narrative* Problem Noted Date Diagnosed Date Resolved Date Full incontinence of feces 10/25/2022 0 05/08/2023 Hematuria 10/16/2020 05/08/2023 Unspecified constipation 04/05/2008 Abdominal pain, unspecified site 04/05/2008 05/08/2023 Rash and other nonspecific skin eruption 04/05/2008 05/08/2023 documented as of this encounter (statuses as of 08/31/2023) [facility] History of Past illness Narrative* Problem Noted Date Diagnosed Date Resolved Date Full incontinence of feces 10/25/2022 0 05/08/2023 Hematuria 10/16/2020 05/08/2023 Unspecified constipation 04/05/2008 Abdominal pain, unspecified site 04/05/2008 05/08/2023 Rash and other nonspecific skin eruption 04/05/2008 05/08/2023 documented as of this encounter (statuses as of 09/17/2023) [facility] History of Past illness Narrative* Problem Noted Date Diagnosed Date Resolved Date Full incontinence of feces 10/25/2022 0 05/08/2023 Hematuria 10/16/2020 05/08/2023 Unspecified constipation 04/05/2008 Abdominal pain, unspecified site 04/05/2008 05/08/2023 Rash and other nonspecific skin eruption 04/05/2008 05/08/2023 documented as of this encounter (statuses as of 10/03/2023) [facility] History of Past illness Narrative* Problem Noted Date Diagnosed Date Resolved Date Full incontinence of feces 10/25/2022 0 05/08/2023 Hematuria 10/16/2020 05/08/2023 Unspecified constipation 04/05/2008 Abdominal pain, unspecified site 04/05/2008 05/08/2023 Rash and other nonspecific skin eruption 04/05/2008 05/08/2023 documented as of this encounter (statuses as of 10/07/2023) [facility] History of Past illness Narrative* Problem Noted Date Diagnosed Date Resolved Date Full incontinence of feces 10/25/2022 0 05/08/2023 Hematuria 10/16/2020 05/08/2023 Unspecified constipation 04/05/2008 Abdominal pain, unspecified site 04/05/2008 05/08/2023 Rash and other nonspecific skin eruption 04/05/2008 05/08/2023 documented as of this encounter (statuses as of 10/07/2023) [facility] History of Present illness Narrative* Abiel Velarde, PT - 10/25/2022 10:45 AM EST Episode Visit Count: 1 Therapist That Will Accept/Oversee The Plan Of Care: Abiel Velarde Start of Care Date: 10/25/22 Onset Date: 07/27/22 Patient Identified by Name and Date of : Yes REHABILITATION AND SPORTS THERAPY PHYSICAL THERAPY EVALUATION PLAN OF CARE: Assessment: Kaela Rolle presents with chief complaint of fecal incontinence that interferes with bladder function;bowel function;altered sexual function . She presents with impairments in decreased strength, coordination, and ROM of pelvic floor muscles; decreased core strength; impaired bladder, bowel, and sexual function. PROMIS (Patient-Reported Outcomes Measurement Information System) scores were unable to be reviewed. Prognosis for therapy is Good due to: current objective clinical presentation . She will benefit from skilled therapy services to meet the goals established for this plan of care as noted below. Goals for Episode of Care: created on 10/25/22 through 12/24/22 Hir[place] in home exercise program. Patient will demonstrate increase in core strength to at least 4/5 during manual muscle testing in order to improve function for prior functional tasks. Incontinence: Increase strength of pelvic floor to Power: at least 3/5 Patient demonstrates ability to correctly isolate pelvic floor muscles Patient reports ability to start stream in less than 5 seconds Patient reports increased ability to fully empty bladder / bowels without straining Patient reports at least 75% improvement in fecal incontinence compared to IE. Pelvic Pain: Patient reports painfree intercourse Patient displays improved muscle dynamics of pelvic floor including ability to lengthen Patient Goals: improve bowel & bladder function, improve pain Planned Interventions, Frequency, and Duration: Current Frequency: 1x/week Duration: 4 weeks (reassess at 4 weeks and progress as indicated) Total Number of Visits Planned: 4 Planned Treatment Interventions: Therapeutic exercise (68969);Manual therapy ([id number]);Self-care homemanagement ([id number]);Patient/Family/Caregiver Education PLAN FOR NEXT VISIT: biofeedback, progress exercises as tolerated Patient demonstrates good understanding of plan of care and treatment. The above goals and plan of care were discussed and agreed upon by patient/family. SUBJECTIVE: Pt reports fecal incontinence began in July 2022. Pt reports history of constipation, feels like she has to have a bowel movement whenever she urinates. Patient Goals: improve bowel & bladder function, improve pain Functional Limitations: bladder function;bowel function;altered sexual function Prior Level of Function: Independent without limitations Relevant History Past Relevant Medical Conditions: (see note) Past Relevant Surgical Conditions: (see note) Employment: Unemployed Recreation / Current Exercise: None. PAST MEDICAL HISTORY Diagnosis Date Abdominal pain, unspecified site Acute pharyngitis Dysthymic disorder depression/anxiety Petit mal seizures [address] Dr. Cagle (neurologist)--[place] Unspecified constipation PAST SURGICAL HISTORY Procedure Laterality Date APPENDECTOMY 03/26/2012 [facility] COLONOSCOPY SCREENING 02/22/2021 Tubular adenoma EGD W/O [facility] SPEC VARICIES INJ 02/22/2021 Normal ESOPHAGOGASTRODUODENOSCOPY TRANSORAL DIAGNOSTIC 01/26/2013 EGD LAPAROSCOPY DIAGNOSTIC 03/04/2011 mild endometriosis, Dr Li, [facility] SURG CHOLECYSTECTOMY W/CHOLANGIOGRAPHY 06/29/2010 PAST SURGICAL HISTORY OF wisdom teeth x 4 PAST SURGICAL HISTORY OF age 25 cataract surgery bilateral PAST SURGICAL HISTORY OF abnormal cells on cervix PAST SURGICAL HISTORY OF 6 mos old tubes put in ears SALPINGECTOMY 10/2017 Laparoscopic B/l salpingectomy Intake Information: Prescription present Previous Treatment: None Falls Interview: No positive findings with falls interview Aquatic Screen: No Pain: Pain Pain Level: 1 Pain Location: Abdomen Description: Aching Frequency: Intermittent Post Treatment Pain Post Treatment Pain Level: No Change PROMIS Scales T-scores: mean of general population = 50. 5 points is clinically meaningfully difference Percentiles provide an indication of how the patient's score ranks in relation to the general population. Higher percentile rankings indicate better function/quality of life. 50th percentile is the average of the general population and indicates half of respondents had a worse score. T-scores: mean of general population = 50. 5 points is clinically meaningfully difference Percentiles provide an indication of how the patient's score ranks in relation to the general population. Higher percentile rankings indicate better function/quality of life. 50th percentile is the average of the general population and indicates half of respondents had a worse score. OBJECTIVE MEASURES WITH LEVEL OF FUNCTION: Pelvic Floor Pregnancies: 0 Pain with penetration: Deep and superficial;Pain during intercourse;Pain with internal medical exam Urinary/Bowel History : Urinary History;Bowel History Difficulty starting stream: Yes Incomplete emptying: Yes Stress Incontinence: No Urgency: No Nocturia (times per night): 2 Daytime Frequency (hours): 2 Fluid Intake: Water;Juice;Pop/Diet Pop (8 oz measurements) Water : 8 Juice : 1 Pop/Diet Pop : 1 Difficulty evacuating / Excessive Straining: Yes Incomplete emptying: Yes Bowel Movement Frequency: 1x/day Fecal incontinence: Yes Solid stool: 2 or more times per day Pelvic Floor Muscle Assessment Consent for pelvic assessment/testing and treatment: Patient was educated regarding pelvic floor physical therapy assessment/treatment which may include pelvic floor and girdle muscle assessment externally or internally (vaginal or rectal approach).;Patient verbalized consent for the above treatment approaches today. Patient understands they have control of the treatment and an opportunity to stop treatment at any time. Pelvic Floor Muscle Assessment: PERFECT;Muscle Dynamics Power: 2 Endurance: 2 Fast Reps: 6 Contracton Pressure: Weak squeeze, felt as flick at various points along finger surface, not all the way around Duration of Contraction: >1 to <3 seconds Recruitment of pelvic floor muscles: Uncoordinated Extra-pelvic muscle activity: Holds breath;Abdominal Range of Motion: Decreased Ability to Lengthen pelvic floor: Difficulty at first, but improves with cueing and practice Diaphragmatic Breathing : Fair Pelvic Floor Manual Assessment Pelvic Floor Tenderness/Hyperactivity: Tested Vaginally in Tested Vaginally in : Supine/hooklying (No tightness/tenderness noted.) LE AROM R LE AROM: WFL L LE AROM: WFL LE Flexibility Flexibility: Hamstring Flexibility;Hip Adductor;Hip Internal Rotation Flexibility;Hip External Rotation Flexibility R Hamstring Flexibility: WNL L Hamstring Flexibility: WNL R Adductor Flexibility: WNL L Adductor Flexibility: WNL R Hip Internal Rotation Flexibility: WNL L Hip Internal Rotation Flexibility: WNL R Hip External Rotation Flexibility: WNL L Hip External Rotation Flexibility: WNL LE Strength Trunk Strength: Lower Abdominals: 3/5 R LE Strength: 5/5 L LE Strength: 5/5 Education: Education Learning Preferences: Demonstration;Explanation;Performance;Printed Materials Barriers: None Learning/educational needs: Home exercise program;Plan of Care Education Provided: Yes, see treatment interventions for education provided Education Provided To: Patient Education Mode/Type: Demonstration;Explanation/Discussion;Literature/Printed Materials;Performance Response to Education/Teach Back: States/Identifies;Return Demonstration TREATMENT: PT Treatment Interventions: Therapeutic Exercise;Self-Jail Management Evaluation Therapeutic Exercise: 1: *PF ROM: contract, relax, lengthen, 2x10 2: *diaphragmatic breathing 3: *supine TA bracing, 2x10 Skilled Intervention: Patient was educated in proper exercise technique and purpose for exercises. Reviewed and educated patient on additions/changes for home exercise program as above (*). Skilled judgment was provided in selection of appropriate interventions. Provided written instruction for home exercise program to facilitate proper performance and compliance. Self-Jail Management: 1: Reviewed pelvic floor anatomy and function with 3D pelvic model 2: Reviewed typical vs dysfunctional bladder and bowel health 3: Reviewed bladder irritants, importance of water for both bladder and bowel health 4: Reviewed toileting strategies to start a stream of urine, empty bladder 5: Reviewed toileting techniques to fully empty bowels without straining Skilled Intervention: Skilled judgment in the selection of proper modification for activity of daily living/home management based on clinical presentation, deficits, and needs. Educated the patient regarding recommendations and provided written instruction to facilitate compliance. Billing * Evaluation Low Complexity: 1 Unit Therapeutic Exercise Treatment Minutes: 13 Self-Care/Home Management Treatment Minutes: 16 Total Treatment Time Minutes (timed/untimed): 51 Abiel Velarde PT [facility] Miscellaneous Notes* Telephone Encounter - Molly Paz - 10/23/2022 1:37 PM EST Opened in error. New message was created. [facility] History and physical note * Rudy Parish APRN.[facility] - 10/14/2022 8:30 AM EST PELVIC FLOOR COLON & RECTAL SURGERY Reason for visit: Review anorectal manometry and EMG results History of Present Illness: Kaela Rolle is a 42 year old FEMALE who was seen at the request of Keiry Hamilton PA-C for anorectal manometry testing, rectal sensation testing and EMG recruitment. Ms. Rolle was referred for testing due to symptoms of diarrhea, fecal incontinence, and rectal pain. Duration of symptoms/change in bowel habits: diarrhea and fecal incontinence for the past 2 months Lifelong hx of constipation; recalls being constipated as a child GI Symptoms: Stool frequency: moves her bowels every time she urinates (6-10x/day) Stool type: unformed, yellow, foamy ; prior to this had formed stools States that she has to strain to begin a urination stream and as a result she also has a bowel movement at the same time Incomplete evacuation: yes Current bowel regimen: none Use of enemas or suppositories: in the past What medications have you tried in the past? : suppositories as a child Abdominal pressure/pain: low transverse; intermittent Anorectal pain:yes, sometimes No rectal bleeding Fecal incontinence: Small amount to full BM Stool Leakage with urination +mucus discharge +anal itching Prior adominal surgery: Appendectomy 02/2012 Tubal ligation 10/2017 Previous trial of biofeedback or pelvic floor PT: denies Prior hysterectomy: No Urinary Symptoms: Urinary incontinence: none Urinary frequency: Yes Obstetric history: 0 Para 0 Previous Testing Results include: Colonoscopy: Yes Date:01/2021 - random biopsies: No - polyps: No Manometry: today Defecography: No Father of bladder CA PAST MEDICAL HISTORY Diagnosis Date Abdominal pain, unspecified site Acute pharyngitis Dysthymic disorder depression/anxiety Petit mal seizures [address] Dr. Cagle (neurologist)--[place] Unspecified constipation PAST SURGICAL HISTORY Procedure Laterality Date APPENDECTOMY 03/26/2012 [facility] COLONOSCOPY SCREENING 02/22/2021 Tubular adenoma EGD W/O [facility] SPEC VARICIES INJ 02/22/2021 Normal ESOPHAGOGASTRODUODENOSCOPY TRANSORAL DIAGNOSTIC 01/26/2013 EGD LAPAROSCOPY DIAGNOSTIC 03/04/2011 mild endometriosis, Dr Li, [facility] SURG CHOLECYSTECTOMY W/CHOLANGIOGRAPHY 06/29/2010 PAST SURGICAL HISTORY OF wisdom teeth x 4 PAST SURGICAL HISTORY OF age 25 cataract surgery bilateral PAST SURGICAL HISTORY OF abnormal cells on cervix PAST SURGICAL HISTORY OF 6 mos old tubes put in ears SALPINGECTOMY 10/2017 Laparoscopic B/l salpingectomy Current Outpatient Medications Medication Sig Dispense Refill colestipol (COLESTID) 1 gram tablet Take 1 tablet by mouth twice daily. [address] (DEPAKOTE) 250 mg EC tablet 2 TABLETS (500 MG ) IN THE AM and 1 tablet (250mg) at night. divalproex DR (DEPAKOTE) 250 mg EC tablet Take 250 mg by mouth twice daily. No current facility-administered medications for this visit. ALLERGIES Allergen Reactions Augmentin [Amoxicil* GI Upset Codeine Vomiting Latex Rash Mold Unknown Z Kyle [Azithromycin] Other: See Comments Interferes with Depakote FAMILY HISTORY Problem Relation Age of Onset Diabetes Mother Anxiety disorder Mother Heart Father A Fib Heart Attack Father other (Bladder cancer) Father No Known Problems Sister No Known Problems Sister Cancer Maternal Uncle stomach Ischemic Heart Disease Maternal Uncle Hypertension Maternal Uncle Colon Cancer No Family History Social History Tobacco Use Smoking status: Never Smokeless tobacco: Never Vaping Use Vaping Use: Never used Substance Use Topics Alcohol use: No Drug use: No Physical Exam: There were no vitals filed for this visit. General Appearance: Well appearing, alert, in no acute distress, well-hydrated, well nourished. Anorectal: Perianal skin is intact. No erythema, induration. No fissure, fistula or external hemorrhoids. Some perianal skin irritation Digital Rectal Exam: Anus: closed Resting tone: NORMAL Squeeze tone: WEAK Valsalva: pelvic floor relaxation is Abnormal. Poor movement Puborectalis: non tender in Left anterior, Right anterior, Left posterior, and Right posterior to palpation on valsalva Rectocele: Absent Full thickness rectal prolapse: No Assessment Anorectal Physiology tests reviewed at today's visit: Reason for testing: diarrhea and fecal incontinence Ileoanal pouch: No Anorectal Manometry Testing: Strength: Anorectal manometry was performed. Average Pressure Interpretation Rest: 71 mmHg This is above normal range. Normal range is 35-50 mmHg. Squeeze: 117 mmHg This is above normal range. Normal range is 75 - 100 mmHg. Resting and squeeze pressures well above normal may indicate high pelvic floor tension. There is minimal incremental change between resting and squeeze pressures which can indicate poor pelvic floor movement with squeeze. Sensory: Sensation Volume First sensation : 100 mL / Normal Range: 40-80 mL First urge to defecate: 140 mL / Normal Range: 80-120 mL Maximum tolerable volume: 190 mL / Normal Range: 120-180 mL Recto-anal inhibitory reflex: Yes Balloon expulsion: No This exhibit blunted rectal sensation with at least 2/3 sensory tests. A recto-anal inhibitory reflex (RAIR) was present. This is a normal reflex. EMG Recruitment: EMG recruitment was performed. The patient shows a normal increase in activity with squeeze, and nochange in activity with valsalva. This indicates abnormal pelvic floor movement, which can be indicative of poor pelvic floor coordination. Assessment and Plan: Kaela Rolle is a 42 year old FEMALE who was referred for anorectal physiology testing due to symptoms of fecal incontinence, diarrhea, and incomplete defecation. The testing that was performed today includes anorectal manometry, rectal sensory testing, balloon expulsion and EMG recruitment. These test results were reviewed with Kaela Rolle and are listed above. Overall, these tests shownormal anal sphincter strength, blunted rectal sensation, and abnormal pelvic floor movement. Afterreview of the patient's history, physical exam findings, anorectal manometry and EMG results, the patient may have poor pelvic floor movement which could contribute to their symptoms. Recommendations for this include: 1. Stay hydrated by drinking at least 8 glasses of water per day. This will help to keep your bowelhabits more regular. 2. Begin taking Fiber POWDER (metamucil, benefiber, citrucelle) - 1/2 tsp of powder mixed in 4-8 ounces of liquid every morning x 1 week; increase 1 tsp of powder mixed in 4-8 ounces of liquid every morning x 1 week; then increase to 1 heaping tablespoon of powder mixed in 4-8 ounces of liquid x 1 week, indefinitely. Adjust dose as needed to achieve formed soft stool. 3. Also try taking one tablet imodium at night. Can slowly increase to taking one tablet imodium 30minutes before meals if you do not notice a difference in your stools becoming bulkier with the nighttime dose only. 4. Kegel exercises daily 5. Pelvic floor physical therapy. The goal of this therapy is to retrain the pelvic floor muscles to more appropriately relax and therefore improve evacuation of stool. Physical therapy is the most effective way to get the pelvic floor muscles moving and coordinating correctly. Pelvic floor PT was o rdered today, reviewed scheduling process with patient and how to find local therapists. 6. Keep a bowel diary for to document accidental bowel leakage. A bowel diary was provided to patient and reviewed how to complete. Instructed patient to complete it for a total of 2 weeks and email back to or mail to [address] [place] [address] to the attention of Rudy Parish CNP once completed. 7. Patient was instructed to follow up in 6-8 weeks to reassess. 8. Follow up with Keiry Hamilton PA-C A copy of your test results will be sent to this provider. Rudy Parish APRN.CNP Pelvic Floor Colorectal Surgery I spent a total of 48 minutes on the date of the service which included preparing to see the patient, [id number] patient care, completing clinical documentation, obtaining and/or reviewing separately obtained history, performing a medically appropriate examination, counseling and educating the pat ient/family/caregiver, ordering medications, tests, or procedures, and communicating results to thepatient/family/caregiver. documented in this encounterH[facility]12-19-[facility]22 Instructions* Patient Instructions* Rudy Parish APRN.CNP - 10/14/2022 8:10 AM EST 1. Stay hydrated by drinking at least 8 glasses of water per day. This will help to keep your bowelhabits more regular. 2. Begin taking Fiber POWDER (metamucil, benefiber, citrucelle) - 1/2 tsp of powder mixed in 4-8 ounces of liquid every morning x 1 week; increase 1 tsp of powder mixed in 4-8 ounces of liquid every morning x 1 week; then increase to 1 heaping tablespoon of powder mixed in 4-8 ounces of liquid x 1 week, indefinitely. Adjust dose as needed to achieve formed soft stool. 3. Also try taking one tablet imodium at night. Can slowly increase to taking one tablet imodium 30minutes before meals if you do not notice a difference in your stools becoming bulkier with the nighttime dose only. 4. Kegel exercises daily 5. Pelvic floor physical therapy. The goal of this therapy is to retrain the pelvic floor muscles to more appropriately relax and therefore improve evacuation of stool. Physical therapy is the most effective way to get the pelvic floor muscles moving and coordinating correctly. Pelvic floor PT was o rdered today, reviewed scheduling process with patient and how to find local therapists. 6. Keep a bowel diary for to document accidental bowel leakage. A bowel diary was provided to patient and reviewed how to complete. Instructed patient to complete it for a total of 2 weeks and email back to or mail to [address] [place] [address] to the attention of Rudy Parish CNP once completed. 7. Patient was instructed to follow up in 6-8 weeks to reassess. 8. Follow up with Keiry Hamilton PA-C A copy of your test results will be sent to this provider. documented in this encounterH[facility]12-09-2022 Instructions* Patient Instructions* Dinah Hamilton PA-C - 10/04/2022 9:25 AM EST - Start OTC probiotic with at least 15 billion live cultures, 10+ strains documented in this encounterH[facility]12-09-2022 History of Present illness Narrative* Dinah Hamilton PA-C - 10/04/2022 9:02 AM EST CHIEF COMPLAINT: Patient presents with: Diarrhea: Has been going on for [address] 09/17/22 Stool 08/21/22 HPI: Kaela Rolle is a 42 year old female who presents for Diarrhea (Has been going on for [address] 09/17/22 Stool 08/21/22). Surg hx positive for appendectomy, reza, salpingectomy. EGD/Colon 01/2021 essentially unremarkable, negative for Celiac. No random colon bxs obtained. CT abd 08/2022 showed no acute process. ID stool studies 07/2022 negative. Bms are 3-4 per day, loose to watery, no blood, unchanged with eating. Struggling with fecal yellow watery discharge, intermittent incontinence, urgency with Bms, painful, rectal pain/pruritus. No children, no h/o vaginal deliveries. H/o urinary incontinence. Unintentional weight loss of 10 lbs since sx started. EGD/Colon 01/2021 CONVERTED FINAL DIAGNOSIS 1. Duodenum, second portion, biopsy (A) - Duodenal mucosa with no pathologic diagnostic abnormality; negative for celiac disease, granulomas or dysplasia. 2. Stomach, biopsy (B) - Gastric oxyntic-type mucosa with no pathologic diagnostic abnormality; see comment. 3. Colon, transverse polyp, biopsy (C) - Tubular adenoma. CT abd 08/2022 IMPRESSION: No acute process in the abdomen or pelvis Component Latest Ref Rng & Units 08/21/2022 Shigella spp./Enteroinvasive E.coli DNA Not Detected Not detected Campylobacter jejuni/coli DNA Not Detected Not detected Shiga toxin-producing gene(s) Not Detected Not detected Salmonella spp. DNA Not Detected Not detected Ova and Parasite Exam No Parasites Seen C. difficile PCR Negative for C. difficile toxin by PCR Negative for C. difficile toxin by PCR Record Review: [facility] / Outside records reviewed. PAST MEDICAL HISTORY Diagnosis Date Abdominal pain, unspecified site Acute pharyngitis Dysthymic disorder depression/anxiety Petit mal seizures [address] Dr. Cagle (neurologist)--Tyler Unspecified constipation PAST SURGICAL HISTORY Procedure Laterality Date APPENDECTOMY 03/26/2012 [facility] COLONOSCOPY SCREENING 02/22/2021 Tubular adenoma EGD W/O [facility] SPEC VARICIES INJ 02/22/2021 Normal ESOPHAGOGASTRODUODENOSCOPY TRANSORAL DIAGNOSTIC 01/26/2013 EGD LAPAROSCOPY DIAGNOSTIC 03/04/2011 mild endometriosis, Dr Li, [facility] SURG CHOLECYSTECTOMY W/CHOLANGIOGRAPHY 06/29/2010 PAST SURGICAL HISTORY OF wisdom teeth x 4 PAST SURGICAL HISTORY OF age 25 cataract surgery bilateral PAST SURGICAL HISTORY OF abnormal cells on cervix PAST SURGICAL HISTORY OF 6 mos old tubes put in ears SALPINGECTOMY 10/2017 Laparoscopic B/l salpingectomy Allergies: ALLERGIES Allergen Reactions Augmentin [Amoxicil* GI Upset Codeine Vomiting Latex Rash Mold Unknown Z Kyle [Azithromycin] Other: See Comments Interferes with Depakote Medications: divalproex DR (DEPAKOTE) 250 mg EC tablet 2 TABLETS (500 MG ) IN THE AM and 1 tablet (250mg) at night. divalproex DR (DEPAKOTE) 250 mg EC tablet Take 250 mg by mouth twice daily. FAMILY HISTORY Problem Relation Age of Onset Diabetes Mother Anxiety disorder Mother Heart Father A Fib Heart Attack Father other (Bladder cancer) Father No Known Problems Sister No Known Problems Sister Cancer Maternal Uncle stomach Ischemic Heart Disease Maternal Uncle Hypertension Maternal Uncle Colon Cancer No Family History Employer And Job Title: [employer] (No job title specified) Years Of Education Completed: 14 years Marital Status: Single with no children Social History Tobacco Use Smoking status: Never Smokeless tobacco: Never Vaping Use Vaping Use: Never used Substance Use Topics Alcohol use: No Drug use: No Review of Systems: Review of Systems Constitutional: Positive for appetite change and unexpected weight change. Gastrointestinal: Positive for abdominal distention, diarrhea, nausea and rectal pain. Gas, Change in bowel habits All other systems reviewed and are negative. Are you taking any blood thinners? No Physical Examination: BP 108/72 Pulse 98 Ht 170.2 cm (5' 7 ) Wt 57.6 kg (127 lb) LMP 09/17/2022 BMI 19.89 kg/m Physical Exam Constitutional: General: She is not in acute distress. Appearance: Normal appearance. She is normal weight. She is not ill-appearing, toxic-appearing or diaphoretic. HENT: Head: Normocephalic and atraumatic. Nose: Nose normal. Eyes: General: No scleral icterus. Right eye: No discharge. Left eye: No discharge. Extraocular Movements: Extraocular movements intact. Conjunctiva/sclera: Conjunctivae normal. Pupils: Pupils are equal, round, and reactive to light. Cardiovascular: Rate and Rhythm: Normal rate and regular rhythm. Pulses: Normal pulses. Heart sounds: Normal heart sounds. No murmur heard. No friction rub. No gallop. Pulmonary: Effort: No respiratory distress. Breath sounds: Normal breath sounds. No stridor. No wheezing, rhonchi or rales. Chest: Chest wall: No tenderness. Abdominal: General: Abdomen is flat. Bowel sounds are normal. There is no distension. Palpations: Abdomen is soft. There is no mass. Tenderness: There is no abdominal tenderness. There is no right CVA tenderness, left CVA tenderness, guarding or rebound. Hernia: No hernia is present. Musculoskeletal: General: Normal range of motion. Cervical back: Normal range of motion and neck supple. Skin: General: Skin is warm and dry. Neurological: General: No focal deficit present. Mental Status: She is alert and oriented to person, place, and time. Psychiatric: Mood and Affect: Mood normal. Behavior: Behavior normal. Assessment/Plan (R19.7) Diarrhea, unspecified type (primary encounter diagnosis) (R15.1) Fecal smearing 1. Diarrhea, unspecified type - PANC ELASTASE, FECAL - CALPROTECTIN,FECAL - colestipol (COLESTID) 1 gram tablet; Take 1 tablet by mouth twice daily. Dispense: 30 tablet; Refill: 2 - Negative for Celiac on EGD 01/2021 - Stool testing to r/o intestinal inflammation, EPI - Test for food sensitivities via blood - Start Colestid BID for possible bile acid induced diarrhea - Start probiotics daily 2. Fecal smearing - ADULT [place] ANORECTAL MANOMETRY; Future - Obtain anorectal manometry to assess for likely PFD I spent a total of 30 minutes on the date of the service which included preparing to see the patient, [id number] patient care, completing clinical documentation, obtaining and/or reviewing separately obtained history, performing a medically appropriate examination, counseling and educating the pat ient/family/caregiver, ordering medications, tests, or procedures, communicating with other HCPs (not separately reported), independently interpreting results (not separately reported), communicatingresults to the patient/family/caregiver, and care coordination (not separately reported). Dinah Hamilton PA-C October 04, 2022 9:28 AM documented in this encounterH[facility]11-30-2022 Miscellaneous Notes* Telephone Encounter - Asia Simmons RN - 09/25/2022 8:18 AM EST Patient notified. Asia Simmons RN * Telephone Encounter - Amber Patrick RN - 09/24/2022 3:54 PM EST Left message to call office. Amber Patrick RN * Telephone Encounter - Amber Patrick RN - 09/24/2022 3:54 PM EST ----- Message from Ada Feliciano MD sent at 09/24/2022 3:45 PM EST ----- Please notify patient that her Ultrasound is normal. She needs to follow up with GI as discussed ather visit. I do not feel her pain is TRACTOR TRAILER MECHANIC related. documented in this encounterH[facility]11-23-2022 History of Present illness Narrative* Ada Feliciano MD - 09/18/2022 10:43 AM EST Geriatric Social Worker offered: Patient declines. Kaela Rolle is a 42 year old female who presents with worsening lower abdominal pain. Reports the symptoms began with yellow diarrhea 2 months ago. Pt states currently still has diarrhea multiple times daily- every time she urinates she has diarrhea. The abdominal pain began shortly after the diarrhea. The pain is sharp and radiates to her back. Reports it is a constant pain. States she is losing weight( 10lbs) and is unable to eat.States she is unable to go to work and feels something iswrong . PCP gave her ciprofloxacin for her symptoms with no relief. Had a colonoscopy 1 year ago with no abnormal findings. Had a CT completed on 09/17/22 with no abnormal findings. PCP reccommended she see OBGYN after receiving results. Denies any known food allergies. Denies trying anything for the symptoms. Denies any concerns for STDs or vaginal discharge. Wants her ovaries removed. Denies any fevers or known food allergies. Pt states menses are a little heavier and more painful but still regular. Pt offers no other concerns. Pt reports canceled her appt with GI b/c it was scheduled in November. OB History T0 L0 SAB0 IAB0 Ectopic0 Multiple0 Live Births0 Egg Pasteurizer History LMP: 07/17/2022, Having periods Age at Menarche: Age at First : Age at Menopause: Egg Pasteurizer History Comments: Sexual Activity: Not Currently; Male Contraception: Condom PAST MEDICAL HISTORY Diagnosis Date Abdominal pain, unspecified site Acute pharyngitis Dysthymic disorder depression/anxiety Petit mal seizures [address] Dr. Cagle (neurologist)--Tyler Unspecified constipation PAST SURGICAL HISTORY Procedure Laterality Date APPENDECTOMY 03/26/12 [facility] ESOPHAGOGASTRODUODENOSCOPY TRANSORAL DIAGNOSTIC 01/26/2013 EGD LAPAROSCOPY DIAGNOSTIC 03/04/11 mild endometriosis, Dr Li, [facility] CHOLECYSTECTOMY W/CHOLANGIOGRAPHY --10 PAST SURGICAL HISTORY OF wisdom teeth x 4 PAST SURGICAL HISTORY OF age 25 cataract surgery bilateral PAST SURGICAL HISTORY OF abnormal cells on cervix PAST SURGICAL HISTORY OF 6 mos old tubes put in ears SALPINGECTOMY 10/2017 Laparoscopic B/l salpingectomy FAMILY HISTORY Problem Relation Age of Onset Diabetes Mother Anxiety disorder Mother Heart Father A Fib Heart Attack Father other (Bladder cancer) Father No Known Problems Sister No Known Problems Sister Cancer Maternal Uncle stomach Ischemic Heart Disease Maternal Uncle Hypertension Maternal Uncle Social History Tobacco Use Smoking status: Never Smokeless tobacco: Never Vaping Use Vaping Use: Never used Substance Use Topics Alcohol use: No Drug use: No Current Outpatient Medications Medication Sig polyethylene glycol 3350 (MIRALAX) 17 gram/dose powder Take 17 g by mouth once daily. (Patient not taking: Reported on 02/12/2022 ) MULTI-VITAMIN ORAL Take by mouth. (Patient not taking: Reported on 01/22/2021 ) divalproex DR (DEPAKOTE) 250 mg EC tablet 2 TABLETS (500 MG ) IN THE AM and 1 tablet (250mg) at night. divalproex DR (DEPAKOTE) 250 mg ORAL EC tablet Take 250 mg by mouth twice daily. No current facility-administered medications for this visit. Allergies As of Date: 09/18/2022 Allergen Noted Reaction AUGMENTIN [AMOXICILLIN-POT CLAVUL*12/11/2015 GI Upset CODEINE 02/04/2013 Vomiting LATEX 06/21/2020 Rash MOLD 09/12/2010 Unknown Z KYLE [AZITHROMYCIN] 09/16/2015 Other: See Comments Fully Assessed 09/13/2022 REVIEW OF SYSTEMS Abdomen: Diarrhea and lower abdominal pain. No bloating, early satiety, indigestion, or increased flatulence. No nausea, vomiting, or constipation. Bladder: Urgency. No dysuria, gross hematuria, urinary frequency, or incontinence. Expanded ROS: negative fever Allergies and current medication updated:Yes EXAM: BP 110/62 Wt 128 lb (58.1kg) LMP 09/17/2022 GENERAL: pleasant, female in no apparent distress HEENT: Normocephalic and atraumatic NECK: full range of motion DERMATOLOGY: without lesions ABDOMEN: soft, mild tenderness RLQ and LLQ. No rebound, no guarding. PELVIC: deferred BIMANUAL: deferred NEURO: alert and oriented x3,exam grossly non-focal EXTREMITIES: normal ASSESSMENT AND PLAN: Encounter Diagnosis ICD-10-CM 1. Diarrhea, unspecified type R19.7 CONSULT TO GASTROENTEROLOGY 2. Pelvic pain R10.2 PELVIC US WHI 3. Abdominal pain, unspecified abdominal location R10.9 CONSULT TO GASTROENTEROLOGY 4. I discussed with the patient that I really do not feel that her pain is from a TRACTOR TRAILER MECHANIC source however pelvic ultrasound will be performed to rule any pathology out. Her CT scan was negative. I am moreconcerned with her daily multiple diarrhea episodes. I discussed with the patient that colonoscopy may be indicated as a could be inflammatory issue occurring causing her pain. We discussed that GI, bladder, TRACTOR TRAILER MECHANIC pathology could all be the source of her pain these can be difficult to differentiate. I would highly encourage her to see GI for further evaluation and testing. Discussed with the patient that if everything comes back negative recommendation would be to try hormonal therapy to see if that alleviates any of her pain this is possibly endometriosis but I have a very low suspicion for this as at her last laparoscopy in 2018 there were no findings suggestive of this however questionablehistory in 2010 on scope outside [facility]. I spent a total of 20 minutes on the date of the service which included preparing to see the patient, [id number] patient care, completing clinical documentation, obtaining and/or reviewing separately obtained history, performing a medically appropriate examination, counseling and educating the pat ient/family/caregiver, and ordering medications, tests, or procedures Medical Decision Making: Medical Decision Making Level: 1 - N/A Ada Lama MD documented in this encounterH[facility]11-23-2022 Miscellaneous Notes* Telephone Encounter - Johana Lorenzana RN - 09/18/2022 10:11 AM EST Patient called and notified of provider instructions. Patient voiced understanding. Johana Lorenzana RN * Telephone Encounter - Melanie Greenwood APRN.CNP - 09/18/2022 10:04 AM EST I do recommend following up with TRACTOR TRAILER MECHANIC or PCP team at this point -- until GI appointment. Thank you, Melanie Greenwood APRN.CNP * Telephone Encounter - Fely Higginbotham Ma - 09/18/2022 9:47 AM EST Pt notified and voiced understanding. She states she is scheduled with Gastro in Sep. She states she can't eat anything without having pain. She has diarrhea the last few months. The pain is in the lower abdomen. She has TRACTOR TRAILER MECHANIC she follows with, wonders if she needs to have further testing done on the female parts . She states she has hx of ovarian cysts. Any other suggestions. Fely Higginbotham Ma * Telephone Encounter - Melanie Greenwood APRN.CNP - 09/18/2022 9:39 AM EST Please call patient and let her know CT abd was negative. No abnormalities. No concerns. Thank you, Melanie Greenwood APRN.CNP documented in this encounterH[facility]11-22-2022 History of Present illness Narrative* Ambar Sethi RT(R) - 09/17/2022 10:40 AM EST Radiology Service Progress Note DATE OF SERVICE: September 17, 2022 TIME: 12:23 PM PATIENT IDENTITY VERIFICATION COMPLETED USING TWO (2) STANDARD IDENTIFIERS: Name and Date of confirmed by patient verbally. FALL SCREENING: Has the patient had 2 falls in the last year or 1 fall with injury or currently using an Ambulatory Assistive Device (Walker, Cane, Wheelchair, Crutches, etc.)? No PATIENT GENDER DATA: Female. status: : No status: NO. PATIENT RELEVANT IMPLANT DATA REVIEWED: Yes ALLERGIES: Reviewed and unchanged CONTRAST ALLERGY: NO. EXAM: CT -CONTRAST INDUCED NEPHROPATHY RISK FACTORS: Not applicable CREATININE: Creatinine Date Value Ref Range Status 08/21/2022 0.73 0.58 - 0.96 mg/dL Final 05/12/2020 0.78 0.58 - 0.96 mg/dL Final 08/19/2013 0.71 0.70 - 1.40 mg/dL Final Estimated Glomerular Filtration Rate Date Value Ref Range Status 08/21/2022 105 >=60 mL/min/1.73m Final Comment: Estimated Glomerular Filtration Rate (eGFR) is calculated using the 2020 CKD-EPI creatinine equation. This equation utilizes serum creatinine, sex, and age as parameters. The creatinine assay has traceable calibration to isotope dilution- mass spectrometry. Refer to KDIGO guidelines for clinical interpretation. In patients with unstable renal function, e.g. those with acute kidney injury, the eGFRmay not accurately reflect actual GFR. eGFR- Date Value Ref Range Status 05/12/2020 >60 Final P.O.C.T. RESULTS: POC done: Yes, See Lab Tab September 17, 2022 TREATMENT: N/A PERIPHERAL IV DATA: Ambulatory: A peripheral IV was started in the Left antecubital site with a Angio cath: 22 gauge. RADIOLOGY DEPARTMENT: CT; Exam(s) Completed: Abdomen/Pelvis SIGNATURE: RT Everette(R) PATIENT NAME: Kaela Rolle DATE: September 17, 2022 TIME: 12:23 PM documented in this encounterHarrison [facility] Hospital11-14-2022 Miscellaneous Notes* Telephone Encounter - Caitlin Jones LPN - 09/09/2022 4:22 PM EST Spoke with pt gave information provided. Pt voices understanding. * Telephone Encounter - Katty Goodman APRN.CATHY - 09/09/2022 4:10 PM EST Please let her know that her A1C is 5.2, which is completely normal. No concern for diabetes. Katty Goodman APRN.CNP * Telephone Encounter - Kelsey Ambrosio Ma - 09/09/2022 4:04 PM EST A1C is now resulted. Kelsey Ambrosio Ma * Telephone Encounter - Katty Goodman APRN.CNP - 09/09/2022 1:36 PM EST Please check on the A1C. It shows it was drawn on 09/05, so definitely should have resulted by now. Did we send a referral to Dr. Salazar's office? Please let her know that we send them the referral, but because he is outside of [facility], we cannot schedule the appointment for her. Katty Goodman APRN.CATHY * Telephone Encounter - Jenna Macias LPN - 09/09/2022 11:37 AM EST Pt is calling for lab results-A1C. Chart show lab is still pending. Pt reports she has not heard from Dr. Salazar's office for gastro appt. Pt reports she has left messages and hasn't heard back. Jenna Macias LPN documented in this encounterH[facility]11-09-2022 Miscellaneous Notes* Telephone Encounter - Kathi Vela RN - 09/04/2022 4:37 PM EST Patient returned call and given provider's message below and patient verbalized understanding. Glory Vela RN * Telephone Encounter - Caitlin Jones LPN - 09/04/2022 4:15 PM EST Left message to return call. * Telephone Encounter - Melanie Greenwood APRN.CNP - 09/04/2022 2:52 PM EST UA was similar to prior. No signs of infection. No blood. Trace amount of protein and ketones. With these results and urinary frequency, I would like to HgA1c for diabetes. Testing ordered. Thank you, Melanie Greenwood APRN.CNP * Telephone Encounter - Maggie Cortes LPN - 09/04/2022 2:06 PM EST Patient is asking about urine resulted on 09/03/22. documented in this encounterHarrison [facility] Hospital10-31-2022 Miscellaneous Notes* Telephone Encounter - Sharon Small LPN - 08/26/2022 5:26 PM EDT Pt. informed. Sharon Small LPN * Telephone Encounter - Melanie Greenwood APRN.CNP - 08/26/2022 4:51 PM EDT Yes, this was reordered. Thank you, Melanie Greenwood APRN.CATHY * Telephone Encounter - Sharon Small LPN - 08/26/2022 2:02 PM EDT H Pylori test was cancelled. Do you still want it? * Telephone Encounter - Melanie Greenwood APRN.CNP - 08/26/2022 12:46 PM EDT I am not sure what that means for H. Pylori? I have ordered it like I always have. Please instruct patient to take Cipro antibiotic BID x 10 days. This will treat urinary infection (UTI) or GI infection. This is sent to pharmacy. Also recommend OTC imodium as needed. Emphasize that this can be taken up to 8 pills per day per instructions on package. If still no improvement. I would consider US or CT of abd and GI consult. Ova and parasites sample is now negative. Thank you, Melanie Greenwood APRN.CNP * Telephone Encounter - Stefany Waite RN - 08/26/2022 10:40 AM EDT Lab has specimen for H Pylori. Waiting for collection information to be filled out from office so they can run test. Not certain how to do this? If office staff could please fill out so testing can be completed. Patient calls to check on results and reports that symptoms are not improving but getting worse. Patient reports that she continues to have liquid diarrhea that is brownish yellow and foamy . Patient reports that she is eating very little but drinking lots of fluids that includes 5-6 bottles of water daily. She reports that she feels she needs to urinate frequently but when she goes it is only asmall amount. Nausea and feeling tired also continue. Stefany Waite RN * Telephone Encounter - Melanie Greenwood APRN.CATHY - 08/26/2022 9:52 AM EDT H pylori was ordered but I don't see that this was run. Can we check on this? So far, Cdiff is negative. Bacterial panel of shigella, camplyobacteria, shiga, and salmonella are all negative as well. The ova + parasite testing is still in process. Thank you, Melanie Greenwood APRN.KIDS ACTIVITIES COACH * Telephone Encounter - Jenna Macias LPN - 08/26/2022 9:06 AM EDT Pt is calling to check on results of stool samples. Pt reports she is miserable and can hardly makeit through work. Pt is asking how much longer it could take. Pt is asking if H Pylori was done or not. Jenna Macias LPN * Telephone Encounter - Sadie Mccoy RN - 08/22/2022 3:47 PM EDT Spoke with patient. Given message from provider's office. Patient verbalizes understanding. Still waiting for stool sample results. Sadie Mccoy RN * Telephone Encounter - Kelsey Ambrosio Ma - 08/22/2022 3:40 PM EDT Attempted to contact patient with no answer. Left message for patient to contact office for results. Kelsey Ambrosio Ma * Telephone Encounter - Melanie Greenwood APRN.CNP - 08/22/2022 3:24 PM EDT Please call patient and let her know that UA did show mild amount of ketones and protein in urine. This concerns me slightly for kidney dysfunction -- however all kidney function labs in [facility] are normal. I would like to just repeat UA in 2 weeks. Otherwise, the rest of labs looks good. Still waiting on all stool samples to result. Thank you, Melanie Greenwood APRN.CNP documented [facility] History of Present illness Narrative* Melanie Greenwood APRN.CNP - 08/26/2022 2:35 PM EDT New order for H. Pylori per lab services. Thank you, Melanie Greenwood APRN.CNP documented in this encounterH[facility] History of Present illness Narrative* Melanie Greenwood APRN.CNP - 08/21/2022 3:11 PM EDT Chief Complaint Patient presents with: Diarrhea: Pt states clear liquid foam comes out of her , inc of this at times, upset stomach,tighness in stomach. Can eat no vomiting, anal area is sore and leaks. HPI Kaela Rolle is a 42 year old female who presents here today for Above Complaints. Kaela is an established patient of Dr. Zendejas. Kaela is a new patient to me today. Concerns today.. Diarrhea--- Foam in stool x 2 weeks. COVID + on 08/06/22. Did have mild brown diarrhea with COVID that went away within a few days. Now c/o cramping and lower abd pain prior to BMs. Reports clear liquid and foamy, bubbly stool/diarrhea x about 4 episodes per day. Incontinence of bowel sometimes due to urgency. Has to wear pad. Hx of cholecystomy numerous years ago. No complications since. Denies any n/v/c. No concerns for STDs. Denies vaginal discharge. Does report urinary dribbling as well x a while . Father due to bladder cancer. Significant work-up with CT urogram and cystoscopy in 2019 d/t hematuria. Unremarkable. EGD 02/22/21 -- unremarkable. Colonoscopy 02/22/21-- One 7 mm polyp in the transverse colon, removed with a cold snare. Resected and retrieved. The examined portion of the ileum was normal. Repeat colonoscopy in 5 years for surveillance Past medical history, appointments, medications, allergies reviewed. Previous Medical History PAST MEDICAL HISTORY Diagnosis Date Abdominal pain, unspecified site Acute pharyngitis Dysthymic disorder depression/anxiety Petit mal seizures [address] Dr. Cagle (neurologist)--[place] Unspecified constipation Previous Surgical History PAST SURGICAL HISTORY Procedure Laterality Date APPENDECTOMY 03/26/12 [facility] ESOPHAGOGASTRODUODENOSCOPY TRANSORAL DIAGNOSTIC 01/26/2013 EGD LAPAROSCOPY DIAGNOSTIC 03/04/11 mild endometriosis, Dr Li, [facility] CHOLECYSTECTOMY W/CHOLANGIOGRAPHY 9-3-10 PAST SURGICAL HISTORY OF wisdom teeth x 4 PAST SURGICAL HISTORY OF age 25 cataract surgery bilateral PAST SURGICAL HISTORY OF abnormal cells on cervix PAST SURGICAL HISTORY OF 6 mos old tubes put in ears SALPINGECTOMY 10/2017 Laparoscopic B/l salpingectomy Family History FAMILY HISTORY Problem Relation Age of Onset Diabetes Mother Anxiety disorder Mother Heart Father A Fib Heart Attack Father other (Bladder cancer) Father No Known Problems Sister No Known Problems Sister Cancer Maternal Uncle stomach Ischemic Heart Disease Maternal Uncle Hypertension Maternal Uncle Patient Allergies ALLERGIES Allergen Reactions Augmentin [Amoxicil* GI Upset Codeine Vomiting Latex Rash Mold Unknown Z Kyle [Azithromycin] Other: See Comments Interferes with Depakote Current Medications Current Outpatient Medications on File Prior to Visit Medication Sig divalproex (DEPAKOTE) 250 mg EC tablet 2 TABLETS (500 MG ) IN THE AM and 1 tablet (250mg) at night. linaCLOtide (LINZESS) 72 mcg capsule Take 1 capsule by mouth once daily. Administer on an empty stomach. Swallow whole; DO NOT crush or chew. (Patient not taking: Reported on 02/12/2022 ) iv contrast (will be provided with radiology test) CT Urogram WO/W Inject, intravenously, once for 1 dose.No IV access, insert saline lock prior to the beginning of sedation, infusion, injection of imaging exam. Discontinue saline lock post exam. If Pt. has a central line or IVAD, may access for administration according to line specific nursing protocol. Once exam is complete flush line and de-access according to line specific nursing protocol in the CT contrast administration guidelines link. (Patient not taking: Reported on 02/12/2022 ) polyethylene glycol 3350 (MIRALAX) 17 gram/dose powder Take 17 g by mouth once daily. (Patient not taking: Reported on 02/12/2022 ) MULTI-VITAMIN ORAL Take by mouth. (Patient not taking: Reported on 01/22/2021 ) divalproex DR (DEPAKOTE) 250 mg ORAL EC tablet Take 250 mg by mouth twice daily. No current facility-administered medications on file prior to visit. Social History Social History Tobacco Use Smoking status: Never Smokeless tobacco: Never Vaping Use Vaping Use: Never used Substance Use Topics Alcohol use: No Drug use: No REVIEW OF SYSTEMS: as above Reviewed relevant PMHx, PSHx, Social Hx, current medications and allergies. Review of Symptoms REVIEW OF SYSTEMS See HPI. EXAM: BP 112/64 (BP Site: Left Arm, BP Position: Sitting, BP Cuff Size: Regular Adult) Pulse 60 Resp 14 Wt 59.1 kg (130 lb 6.4 oz) LMP 07/17/2022 BMI 20.42 kg/m General Appearance: Well appearing, alert, in no acute distress, well-hydrated, well nourished.. Skin: Skin color, texture, turgor normal, no suspicious rashes or lesions. Head: Normocephalic, no masses, lesions, tenderness or abnormalities. Lungs: Lungs clear to auscultation. No wheezing, rhonchi, rales.. Heart: RRR without murmur, gallop, or rubs. No ectopy. Abdomen: Normal abdominal exam, Abdomen soft, non-tender. Bowel sounds normal. No masses, organomegaly, Negative CVA tenderness. Neurologic: Gait normal. Reflexes normal and symmetric. Sensation grossly intact.. Health Maintenance List HEPATITIS B(1 of 3 - 3-dose series) Never done HEPATITIS C SCREENING Never done HIV SCREENING Never done DTAP,TDAP,TD(1 - Tdap) Never done MAMMOGRAM due on 05/15/2021 COVID-19 VACCINE(4 - Booster for Pfizer series) due on 12/07/2021 PAP TESTING due on 12/17/2021 HPV TESTING due on 12/17/2021 INFLUENZA(1) due on 04/25/2023 ASSESSMENT/PLAN: 1. Diarrhea, unspecified type - ICD9: 787.91, ICD10: R19.7 (primary diagnosis) Rule out infectious cause. Possibly viral with recent COVID + - ENTERIC BACTERIAL PANEL BY PCR - OVA + PARA MICROSCOPIC - C. DIFFICILE PCR - H PYLORI AG BY EIA,STOOL 2. Abdominal cramping - ICD9: 789.00, ICD10: R10.9 Etiology unclear Differential Diagnosis includes PUD, Gastritis, IBS, IBD, Lactose intolerance, and Cystitis - Labs of CBC with Diff, CMP, H pylori Antibodies, Lipase, Stool for C diff, Stool studies, and Urine analysis - [facility] low residue diet - COMP METABOLIC PANEL - CBC + DIFF - LIPASE BLD - UA DIP, URINE (POC) - URINE CULTURE - URINALYSIS, WITH MICROSCOPIC - URINE CULTURE 3. Urinary frequency - ICD9: 788.41, ICD10: R35.0 acute - Send UA and urine for culture - URINALYSIS, WITH MICROSCOPIC - URINE CULTURE RTO as needed with PCP team. Prescription instructions reviewed with patient as applicable. Potential red flag symptoms discussed with the patient. Reviewed appropriate action plan to take if red flag symptoms occur. Patient agreeable to treatment plan. Melanie Greenwood APRN.CATHY [id number] [place] [address] documented in this encounterH[facility]10-[facility]22 Miscellaneous Notes* Telephone Encounter - Mirella Zendejas MD - 08/07/2022 11:46 AM EDT The following approved medication requests have been transmitted electronically. Requested Prescriptions Signed Prescriptions Disp Refills molnupiravir 200 mg capsule 40 capsule 0 Sig: Take 4 capsules by mouth twice daily for 5 days. Authorizing Provider: MIRELLA ZENDEJAS MD * Telephone Encounter - Keli Zamudio Ma - 08/07/2022 11:39 AM EDT Patient notified, she would like Rx sent to [facility]. She will get information packet from the pharmacy * Telephone Encounter - Mirella Zendejas MD - 08/07/2022 11:25 AM EDT See below that patient needs to review information sheet about molnupiravir (can get from pharmacy and review before she takes it). She is not on MyChart so cannot send to her through there. Since she was evaluated elsewhere but they would not change med, will okay med given needs med change because of adverse med interaction. Follow up as needed. Verify pharmacy to send med to. Molnupiravir Eligibility and Patient Discussion [facility] Formulary Restriction Criteria: Adult outpatients 18 years and older with ALL of the following: [x] Patient has positive SARS-COV-2 viral test (PCR or antigen test) during current illness [x] Patient has symptoms for 5 days or less [x] Not requiring hospitalization at any time for management of COVID-19 [x] Not requiring supplemental oxygen or a change in baseline supplemental oxygen [x] Not utilized for pre-exposure or post-exposure prophylaxis for prevention of COVID-19 [x] Patient is not or lactating [x] Meeting at least one of the criteria for high risk of progression to severe COVID-19: [] Age over 65 years [] Cancer [] Chronic kidney disease [] Chronic liver disease [] Chronic lung diseases, including cystic fibrosis [x] Dementia or other neurological conditions (Seizure disorder) [] Diabetes (type 1 or type 2) [] Disabilities, including Down syndrome and neurodevelopmental disorders [] Heart conditions [] HIV infection [] Immunocompromised state [x] Mental health conditions (Dysthymia) [] Medical related technological dependence (tracheostomy, gastrostomy, or positive pressure ventilation (not related to COVID) [] Overweight and obesity (BMI greater or equal to 25 for adults) [] Physical inactivity [] Sickle cell disease or thalassemia [] Smoking, current or former [] Solid organ or blood stem cell transplant [] Stroke or cerebrovascular disease [] Substance use disorders [] Tuberculosis [] People from racial and ethnic minority groups Criteria above are met: Yes Date of Positive Test:08/06/2022 Date of Symptom Onset: 08/05/22 Patient received COVID vaccine: Yes / status reviewed: Females: [x] Patient is not currently and there is no possibility the patient could be (select one of the following): [] test does not need to be confirmed in patients who have undergone permanent sterilization, are currently using an intrauterine system or contraceptive implant, or in whom is not possible. [] Patients not meeting conditions above: assess whether the patient is based on the firstday of the last menstrual period in individuals who have regular menstrual cycles, is using reliable method of contraception correctly and consistently or have had a negative test [] A test is recommended if the individual has irregular menstrual cycles, is unsure of the first day of the last menstrual period or is not using effective contraception correctly and consistently [x] Patient is not currently . is not recommended during treatment and for four days after final dose of molnupiravir. [x] Females have been advised to use a reliable method of contraception correctly and consistently for the duration of treatment and for four days after the last dose of molnupiravir Males: [] Sexually active male with partner(s) of childbearing potential has been advised to use a reliable method of contraception correctly and consistently for intercourse for the duration of treatment and for three months after the last dose of molnupiravir I have discussed the use of the investigational therapeutic, molnupiravir, for the treatment of mild to moderate COVID-19 and its use under Emergency Use Authorization with the patient. The patient was informed that molnupiravir is not an FDA approved drug and that it is authorized for use under this Emergency Use Authorization. The patient was also informed of the significant knownbenefits and potential risks of molnupiravir, and the extent to which such potential risks and benefits are unknown. The patient was informed that there is mandatory reporting of all medication errors and serious adverse events potentially related to molnupiravir treatment within 7 calendar days from the onset of the event and that events up to 28 days after completion of therapy need to be reported. The discussion included alternatives to receiving molnupiravir, including clinical trials, and potential the risks and benefits of those alternatives. The patient was provided electronically withthe Fact Sheet for Patients, Parents and Caregivers . The patient was also instructed that in addition to the treatment with molnupiravir, he/she should continue to self-isolate and use infection control measures (e.g., wear mask, isolate, social distance, avoid sharing personal items, clean and disinfect high touch surfaces, and frequent handwashing) according to CDC guidelines. The patient stated understanding and gave verbal consent to proceeding with molnupiravir treatment. Mirella Zendejas MD August 07, 2022 11:26 AM * Telephone Encounter - Kathi Vela RN - 08/07/2022 9:49 AM EDT Patient calling to check on status of message sent to provider yesterday. Informed patient that shewould be contacted as soon as PCP advises. Thank you. * Telephone Encounter - Blanche Reaves LPN - 08/06/2022 2:05 PM EDT See previous message below. Pt called back & states she called the [facility] & asked if she could get a different Rx in place of paxlovid, pt was told by the pharmacy that she could take Lagevrio along with the depokote. Pt states she was told by someone at the [facility] to check with herpcp regarding the med change. Pt is asking if pcp can call in Lagevrio? Covid sx started yesterday & pt tested positive today. Pt has ST, congestion, cough, loss of tastes somewhat & is achy & tired. Please advise. Blanche Reaves LPN * Telephone Encounter - Mahogany Radhika CARDOSO - 08/06/2022 12:55 PM EDT Patient calling said she was at [facility] today and tested positive for COVID. Shewas given rx for Paxlovid and [facility] pharmacy told her to contact PCP since interaction with her Depakote. Advised to contact provider at [facility] since was given rx from there. Patient said she will contact [facility] to see if medication can be changed. documented in this encounterH[facility]10[facility]22 Instructions* Patient Instructions* Mirella Zendejas MD - 08/07/2022 11:25 AM EDT Fact Sheet for Patients And Caregivers Emergency Use Authorization (EUA) Of Molnupiravir For Coronavirus Disease 2019 (COVID-19) What is the most important information I should know about molnupiravir? Molnupiravir may cause serious side effects, including: Molnupiravir may cause harm to your unborn baby. It is not known if molnupiravir will harm your baby if you take molnupiravir during . Molnupiravir is not recommended for use in . Molnupiravir has not been studied in . Molnupiravir was studied in animals only. When molnupiravir was given to animals, molnupiravir caused harm to their unborn babies. You and your healthcare provider may decide that you should take molnupiravir during if there are no other COVID-19 treatment options authorized by the FDA that are accessible or clinicallyappropriate for you. If you and your healthcare provider decide that you should take molnupiravir during , you and your healthcare provider should discuss the known and potential benefits and the potential risksof taking molnupiravir during . For individuals who are able to become : You should use a reliable method of control (contraception) consistently and correctly duringtreatment with molnupiravir and for 4 days after the last dose of molnupiravir. Talk to your healthcare provider about reliable control methods. Before starting treatment with molnupiravir your healthcare provider may do a test to seeif you are before starting treatment with molnupiravir. Tell your healthcare provider right away if you become or think you may be duringtreatment with molnupiravir. Surveillance Program: There is a surveillance program for individuals who take molnupiravir during . The purpose of this program is to collect information about the health of you and your baby. Talk to your healthcare provider about how to take part in this program. If you take molnupiravir during and you agree to participate in the surveillance program and allow your healthcare provider to share your information with [employer],then your healthcare provider will report your use of molnupiravir during to [employer]. by calling or Pregnancyreporting.Healthcare Bluebook. For individuals who are sexually active with partners who are able to become : It is not known if molnupiravir can affect sperm. While the risk is regarded as low, animal studies to fully assess the potential for molnupiravir to affect the babies of males treated with molnupiravir have not been completed. A reliable method of control (contraception) should be used consistently and correctly during treatment with molnupiravir and for at least 3 months after thelast dose. The risk to sperm beyond 3 months is not known. Studies to understand the risk to sperm beyond 3 months are ongoing. Talk to your healthcare provider about reliable control methods. Talk to your healthcare provider if you have questions or concerns about how molnupiravir may affectsperm. You are being given this fact sheet because your healthcare provider believes it is necessary to provide you with molnupiravir for the treatment of adults with wopn-no-ewrswdep coronavirus disease 2019 (COVID-19) with positive results of direct SARS-CoV-2 viral testing, and who are at high risk forprogressing to severe COVID-19 including hospitalization or , and for whom other COVID-19 treatment options authorized by the FDA are not accessible or clinically appropriate. The U.S. Food and Drug Administration (FDA) has issued an Emergency Use Authorization (EUA) to makemolnupiravir available during the COVID-19 pandemic (for more details about an EUA please see What is an Emergency Use Authorization? at the end of this document). Molnupiravir is not an FDA-approved medicine in the [place]. Read this Fact Sheet for information about molnupiravir. Talk to your healthcare provider about your options if you have any questions. It is your choice to take molnupiravir. What is COVID-19? COVID-19 is caused by a virus called a coronavirus. You can get COVID-19 through close contact withanother person who has the virus. COVID-19 illnesses have ranged from very npaw-ze-tvpplx, including illness resulting in . While information so far suggests that most COVID-19 illness is mild, serious illness can happen and maycause some of your other medical conditions to become worse. Older people and people of all ages with severe, long lasting (chronic) medical conditions like heart disease, lung disease and diabetes, for example seem to be at higher risk of being hospitalized for COVID-19. What is molnupiravir? Molnupiravir is an investigational medicine used to treat csks-dp-msdfemkk COVID-19 in adults: with positive results of direct SARS-CoV-2 viral testing, and who are at high risk for progressing to severe COVID-19 including hospitalization or , and for whom other COVID-19 treatment optionsauthorized by the FDA are not accessible or clinically appropriate. The FDA has authorized the emergency use of molnupiravir for the treatment of mild-tomoderate COVID-19 in adults under an EUA. For more information on EUA, see the What is an Emergency Use Authorization (EUA)? section at the end of this Fact Sheet. Molnupiravir is not authorized: for use in people less than 18 years of age. for prevention of COVID-19. for people needing hospitalization for COVID-19. for use for longer than 5 consecutive days. What should I tell my healthcare provider before I take molnupiravir? Tell your healthcare provider if you: Have any allergies Are or plan to breastfeed Have any serious illnesses Are taking any medicines (prescription, thzk-mco-saunoyp, vitamins, or herbal products). How do I take molnupiravir? Take molnupiravir exactly as your healthcare provider tells you to take it. Take 4 capsules of molnupiravir every 12 hours (for example, at 8 am and at 8 pm) Take molnupiravir for 5 days. It is important that you complete the full 5 days of treatment with molnupiravir. Do not stop taking molnupiravir before you complete the full 5 days of treatment, even if you feel better. Take molnupiravir with or without food. You should stay in isolation for as long as your healthcare provider tells you to. Talk to your healthcare provider if you are not sure about how to properly isolate while you have COVID-19. Swallow molnupiravir capsules whole. Do not open, break, or crush the capsules. If you cannot swallow capsules whole, tell your healthcare provider. What to do if you miss a dose: If it has been less than 10 hours since the missed dose, take it as soon as you remember If it has been more than 10 hours since the missed dose, skip the missed dose and take your dose atthe next scheduled time. Do not double the dose of molnupiravir to make up for a missed dose. What are the important possible side effects of molnupiravir? Possible side effects of molnupiravir are: See, What is the most important information I should know about molnupiravir? diarrhea nausea dizziness These are not all the possible side effects of molnupiravir. Not many people have taken molnupiravir. Serious and unexpected side effects may happen. This medicine is still being studied,so it is possible that all of the risks are not known at this time. What other treatment choices are there? Like molnupiravir, FDA may allow for the emergency use of other medicines to treat people with COVID-19. Go to https://www.fda.gov/rxvucfeoy-fcuomzfwgwlp-ikb-response/aet-evsncqdarchlbix-ojf- policy-framework/oksipvtqm-rcx-annrbspgfvlma for more information. It is your choice to be treated or not to be treated with molnupiravir. Should you decide not to take it, it will not change your standard medical care. What if I am ? is not recommended during treatment with molnupiravir and for 4 days after the last dose of molnupiravir. If you are or plan to breastfeed, talk to your healthcare provider about your options and specific situation before taking molnupiravir. How do I report side effects with molnupiravir? Contact your healthcare provider if you have any side effects that bother you or do not go away. Report side effects to FDA MedWatch at www.fda.gov/medwatch or call 5-818-ULV-4882 ( ). How should I store molnupiravir? Store molnupiravir capsules at room temperature between 68 F to 77 F (20 C to 25 C). Keep molnupiravir and all medicines out of the reach of children and pets. How can I learn more about COVID-19? Ask your healthcare provider. Visit www.cdc.gov/COVID19 Contact your local or state public health department. Call [employer] at (toll free in the [place] Visit [email or web address] What Is an Emergency Use Authorization (EUA)? The [place] FDA has made molnupiravir available under an emergency access mechanism called an Emergency Use Authorization (EUA) The EUA is supported by a Diabetes Clinical Manager of Health and Human Service (HHS) declaration that circumstances exist to justify emergency use of drugs and biological products during the COVID-19 pandemic. Molnupiravir for the treatment of enaj-wd-[id number] COVID-19 in adults with positive results of direct SARS-CoV-2 viral testing, who are at high risk for progression to severe COVID-19, including hospitalization or , and for whom alternative COVID-19 treatment options authorized by FDA are not accessible or clinically appropriate, has not undergone the same type of review as an FDA- approved product. In issuing an EUA under the COVID-19 public health emergency, the FDA has determined, among other things, that based on the total amount of scientific evidence available including data from adequate and well-controlled clinical trials, if available, it is reasonable to believe that the product may be effective for diagnosing, treating, or preventing COVID-19, or a serious or life-threatening disease or condition caused by COVID19; that the known and potential benefits of the product, when used to diagnose, treat, or prevent such disease or condition, outweigh the known and potential risks of such product; and that there are no adequate, approved, and available alternatives. All of these criteria must be met to allow for the product to be used in the treatment of patients during the COVID-19 pandemic. The EUA for molnupiravir is in effect for the duration of the COVID-19declaration justifying emergency use of molnupiravir, unless terminated or revoked (after which molnupiravir may no longer be used under the EUA). For patent information: www.Healthcare Bluebook/research/patent Copyright 2020 [employer] [facility] and its affiliates. All rights reserved. [id number] Issued: 10/18/2021 documented in [facility] History of Present illness Narrative* Ada Feliciano MD - 07/29/2022 3:50 PM EDT Geriatric Social Worker offered: Patient declines. Kaela Rolle is a 42 year old female who presents for concerns regarding a groin lesion that has been present for a few weeks. Patient states this lesion is red hard size and is staying about thesame size for the last few weeks. Has tried warm/cold compresses without relief. Patient states theother day it ruptured and was draining a lot of fluid yellow and green in nature. She denies havingany fevers or dysuria. She denies any sexually transmitted diseases or any concerns today. Patient states she has been with the same partner for the last 4 years. Patient offers no other concerns. OB History T0 L0 SAB0 IAB0 Ectopic0 Multiple0 Live Births0 Egg Pasteurizer History LMP: 07/08/2021, Having periods Age at Menarche: Age at First : Age at Menopause: Egg Pasteurizer History Comments: Sexual Activity: Not Currently; Male Contraception: Condom PAST MEDICAL HISTORY Diagnosis Date Abdominal pain, unspecified site Acute pharyngitis Dysthymic disorder depression/anxiety Petit mal seizures [address] Dr. Cagle (neurologist)--[place] Unspecified constipation PAST SURGICAL HISTORY Procedure Laterality Date APPENDECTOMY 03/26/12 [facility] ESOPHAGOGASTRODUODENOSCOPY TRANSORAL DIAGNOSTIC 01/26/2013 EGD LAPAROSCOPY DIAGNOSTIC 03/04/11 mild endometriosis, Dr Li, [facility] LAPS SURG CHOLECYSTECTOMY W/CHOLANGIOGRAPHY 06-29-10 PAST SURGICAL HISTORY OF wisdom teeth x 4 PAST SURGICAL HISTORY OF age 25 cataract surgery bilateral PAST SURGICAL HISTORY OF abnormal cells on cervix PAST SURGICAL HISTORY OF 6 mos old tubes put in ears SALPINGECTOMY 10/2017 Laparoscopic B/l salpingectomy FAMILY HISTORY Problem Relation Age of Onset Diabetes Mother Anxiety disorder Mother Heart Father A Fib Heart Attack Father other (Bladder cancer) Father No Known Problems Sister No Known Problems Sister Cancer Maternal Uncle stomach Ischemic Heart Disease Maternal Uncle Hypertension Maternal Uncle Social History Tobacco Use Smoking status: Never Smokeless tobacco: Never Vaping Use Vaping Use: Never used Substance Use Topics Alcohol use: No Drug use: No Current Outpatient Medications Medication Sig divalproex DR (DEPAKOTE) 250 mg EC tablet 2 TABLETS (500 MG ) IN THE AM and 1 tablet (250mg) at night. linaCLOtide (LINZESS) 72 mcg capsule Take 1 capsule by mouth once daily. Administer on an empty stomach. Swallow whole; DO NOT crush or chew. (Patient not taking: Reported on 02/12/2022 ) iv contrast (will be provided with radiology test) CT Urogram WO/W Inject, intravenously, once for 1 dose.No IV access, insert saline lock prior to the beginning of sedation, infusion, injection of imaging exam. Discontinue saline lock post exam. If Pt. has a central line or IVAD, may access for administration according to line specific nursing protocol. Once exam is complete flush line and de-access according to line specific nursing protocol in the CT contrast administration guidelines link. (Patient not taking: Reported on 02/12/2022 ) polyethylene glycol 3350 (MIRALAX) 17 gram/dose powder Take 17 g by mouth once daily. (Patient not taking: Reported on 02/12/2022 ) MULTI-VITAMIN ORAL Take by mouth. (Patient not taking: Reported on 01/22/2021 ) divalproex DR (DEPAKOTE) 250 mg ORAL EC tablet Take 250 mg by mouth twice daily. No current facility-administered medications for this visit. Allergies As of Date: 07/29/2022 Allergen Noted Reaction AUGMENTIN [AMOXICILLIN-POT CLAVUL*12/11/2015 GI Upset CODEINE 02/04/2013 Vomiting LATEX 06/21/2020 Rash MOLD 09/12/2010 Unknown Z KYLE [AZITHROMYCIN] 09/16/2015 Other: See Comments Fully Assessed 07/29/2022 REVIEW OF SYSTEMS Abdomen: no pain Bladder: no dysuria .. Expanded ROS: GENERAL: Negative for fever Allergies and current medication updated:Yes EXAM: BP 102/62 Wt 134 lb (60.8kg) LMP 07/17/2022 GENERAL: pleasant, female in no apparent distress HEENT: Normocephalic and atraumatic NECK: full range of motion PELVIC: 1 cm hard firm nodule on the right groin no surrounding erythema or induration is present. Consistent with likely folliculitis. The area is flocculent. No active drainage. NEURO: alert and oriented x3,exam grossly non-focal EXTREMITIES: normal ASSESSMENT AND PLAN: Encounter Diagnosis ICD-10-CM 1. Boil of groin L02.224 2. Superficial folliculitis L73.9 3. Reviewed continuing warm compresses To come to ahead on its own versus incision and drainage today. Discussed that it does not appear to be infected would likely not need antibiotics. Patient would like to proceed with incision and drainage. Consent was obtained. Medical Decision Making: Problems: Low: Acute, uncomplicated illness or injury Risk: Low: Low risk from testing/treatment Medical Decision Making Level: 3 - Low Ada Lama MD Kaela Rolle is a 42 year old female who presents today for I&D of groin cyst/abscess UNIVERSAL PROTOCOL / SAFETY CHECKLIST Procedure to be Performed: I&D of Groin cyst Sign In: A Moment of CARE was completed. Personnel directly involved with the procedure wore the appropriate PPE (Personal Protective Equipment). Patient/Surrogate Stated/Verified: PATIENT VERIFIED(optional for EMERGENT procedures): Patient name, Date of , Relevant allergies, and The intended procedure Time Out Communication: Intended patient and procedure match the source documents. Consent documented and matches the intended procedure. Sign Out: SIGN OUT (optional for EMERGENT procedures): No specimen collected. Ada Lama MD PROCEDURE NOTE: GROSS LESIONS: Yes, right ana INcision and drainage: Area was cleansed with betadine and anesthetized with 2mL 1% lidocaine with 1:100,000 epi. Area was then incised using a scalpel. Small amount of purulent white discharge was present. Cyst wall was removed and area was decompressed. No further drainage appreciated. Good hemostasis with just pressure. HEMOSTASIS: Obtained with pressure Procedure Summary: Patient tolerated procedure well. ASSESSMENT: Groin Cyst/Boil PLAN: Continue warm soaks as needed Follow up as needed Ada Lama MD documented in [facility] History of Present illness Narrative* Carson Allison MD - 02/14/2022 6:02 PM EDT HISTORY AND PHYSICAL Kaela Rolle 1980 REFERRING PHYSICIAN: Carson Allison MD CHIEF COMPLAINT: skin lesion HPI: The patient is a 41 year old female. She has skin lesions on her right dorsal hand between thethumb and first finger and a skin lesion on her left breast just above and medial to the nipple. Both of these seem to be growing and are slightly raised. The patient has a relative with melanoma is concerned that this could be malignant. She wishes to have both sites removed. SIGNIFICANT MEDICAL PROBLEMS: PAST MEDICAL HISTORY Diagnosis Date Abdominal pain, unspecified site Acute pharyngitis Dysthymic disorder depression/anxiety Petit mal seizures [address] Dr. Cagle (neurologist)--T[place] Unspecified constipation OPERATIONS: PAST SURGICAL HISTORY Procedure Laterality Date APPENDECTOMY 03/26/12 [facility] EGD W/O OR W/BRUSH/WASH 01/26/2013 EGD LAP CHOLECYSTECT/CHOLANGIOGRAPHY 06-29-10 LAPAROSCOPY DIAGNOSTIC 03/04/11 mild endometriosis, Dr Li, [facility] PAST SURGICAL HISTORY OF wisdom teeth x 4 PAST SURGICAL HISTORY OF age 25 cataract surgery bilateral PAST SURGICAL HISTORY OF abnormal cells on cervix PAST SURGICAL HISTORY OF 6 mos old tubes put in ears SALPINGECTOMY 10/2017 Laparoscopic B/l salpingectomy CURRENT MEDICATIONS: Current Outpatient Medications Medication Sig Dispense Refill divalproex DR (DEPAKOTE) 250 mg EC tablet 2 TABLETS (500 MG ) IN THE AM and 1 tablet (250mg) at night. divalproex DR (DEPAKOTE) 250 mg ORAL EC tablet Take 250 mg by mouth twice daily. linaCLOtide (LINZESS) 72 mcg capsule Take 1 capsule by mouth once daily. Administer on an empty stomach. Swallow whole; DO NOT crush or chew. (Patient not taking: Reported on 02/12/2022 ) 30 capsule 2 iv contrast (will be provided with radiology test) CT Urogram WO/W Inject, intravenously, once for 1 dose.No IV access, insert saline lock prior to the beginning of sedation, infusion, injection of imaging exam. Discontinue saline lock post exam. If Pt. has a central line or IVAD, may access for administration according to line specific nursing protocol. Once exam is complete flush line and de-access according to line specific nursing protocol in the CT contrast administration guidelines link. (Patient not taking: Reported on 02/12/2022 ) 1 Each 0 polyethylene glycol 3350 (MIRALAX) 17 gram/dose powder Take 17 g by mouth once daily. (Patient not taking: Reported on 02/12/2022 ) 116 g 1 MULTI-VITAMIN ORAL Take by mouth. (Patient not taking: Reported on 01/22/2021 ) No current facility-administered medications for this visit. ALLERGIES: Augmentin [Amoxicillin-Pot Clavulanate], Codeine, Latex, Mold, and Z Kyle [Azithromycin] PERSONAL HISTORY: Social History Tobacco Use Smoking status: Never Smoker Smokeless tobacco: Never Used Vaping Use Vaping Use: Never used Substance Use Topics Alcohol use: No Drug use: No FAMILY HISTORY: FAMILY HISTORY Problem Relation Age of Onset Diabetes Mother Anxiety disorder Mother Heart Father A Fib Heart Attack Father other (Bladder cancer) Father No Known Problems Sister No Known Problems Sister Cancer Maternal Uncle stomach Ischemic Heart Disease Maternal Uncle Hypertension Maternal Uncle REVIEW OF SYMPTOMS: The review of systems data was entered by the nurse and reviewed by sc Nursing Notes: Mirta De La Torre RN 02/12/2022 4:38 PM Signed REVIEW OF SYSTEMS: General: The patient denies fatigue, denies weight loss, denies weight gain, denies feeling hot, and denies feelings of cold. Eyes: The patient denies glaucoma, denies eye injury/surgery, wears glasses or contacts. Ear/Nose/Throat: The patient denies allergies, denies hayfever, denies ear infections, and denies bloody noses. Cardiovascular: The patient denies chest pain, denies heart disease, denies high blood pressure,denies cardiac stent, denies prior heart attack, denies irregular heart beat, denies high cholesterol, denies poor circulation, denies heart failure, other cardiac issues, denies claudication, denies cold feet, denies peripheral arterial stent. Respiratory: The patient denies tuberculosis, denies pneumonia, denies frequent cough, denies pulmonary embolism, denies shortness of breath, and denies coughing up blood. Gastrointestinal: The patient denies difficulty swallowing, denies acid reflux, denies ulcers, denies vomiting, denies jaundice/hepatitis, NOTES gallbladder problems, denies black or tarry stools, denies hemorrhoids, denies bleeding from rectum, denies diverticulitis, NOTES constipation, denies diarrhea, denies loss of stool control, and denies hernias. Kidney/Bladder: The patient denies kidney stones, denies urine infections, and denies bloody urine. Skin: The patient denies a history of skin cancer, denies bleeding/changing moles, and denies a history of skin rash. Neurologic: The patient NOTES a history of epilepsy/convulsions, denies headaches, denies head/spinal injuries, and denies stroke/TIA. Psychiatric: The patient denies psychiatric medications, denies depression, and denies voices, denies substance abuse. Endocrine: The patient denies thyroid disorders, denies diabetes, and denies hormonal problems. Hematologic: The patient denies a history of bruising, denies bleeding, and denies anemia, denies blood clots. Infections: The patient denies a history of measles and mumps, denies rheumatic fever, and denies sexually transmitted diseases. Musculoskeletal: The patient denies back pain/injury, denies back problems, denies sciatica, deniesknee/foot trouble, denies arthritis, or denies gout. When was patient's last Mammogram screening? 2019 Last Colonoscopy:2020 Mirta De La Torre RN PHYSICAL EXAMINATION: General: The patient is 41 year old female, well nourished, well hydrated in no acute distress. Thepatient is oriented to time, place, and person. VITALS: Last menstrual period 07/08/2021. There is no height or weight on file to calculate BMI. Left breast-a 6 mm abnormality somewhat raised consistent with a seborrheic keratoses Extremities: no clubbing, cyanosis or edema. No adenopathy. Other: Dorsum right hand-4 mm abnormality consistent with a nevus LABORATORY VALUES: As Noted RADIOLOGIC STUDIES: As Noted PROCEDURE: EXCISION OF SKIN LESION The risks, benefits and anticipated outcomes of the procedure, the risks and benefits of the alternatives to the procedure, and the roles and tasks of the personnel to be involved, were discussed with the patient, and the patient consents to the procedure and agrees to proceed. I verify that I personally obtained the patient's consent. Site #1 - Right Hand The patient`s skin was prepped and draped in the usual fashion. A combination of Lidocaine and Marcaine was injected into the skin. An elliptical incision was made around the lesion and was removed in its entirety. The specimen measured 4x4mm This was sent to pathology. The skin was then closed with interrupted 5-0 nylon sutures. The patient tolerated the procedure well. Site # 2, LEFT breast The patient`s skin was prepped and draped in the usual fashion. A combination of Lidocaine and Marcaine was injected into the skin. An elliptical incision was made around the lesion and was removed in its entirety. The specimen measured 6x6mm. This was sent to pathology. The skin was then closed with interrupted 5-0 nylon sutures. The patient tolerated the procedure well. Assessment IMPRESSION: STATUS POST EXCISION OF SKIN LESION - RIGHT HAND AND LEFT BREAST PLAN: Kaela is instructed to remove the dressing in two days. If the dressing becomes soaked or had significant drainage, the dressing should be changed. If there is minor bleeding from this skin edge, the patient should hold pressure on the incision. If there is continued bleeding, the patient should contact our office immediately. The patient may may wash the wound with gentle soap and waterafter two days. The wound should not be immersed in a pool, bathtub, or even hot tub. Diagnoses: (L98.9) Skin lesion (primary encounter diagnosis) Return to Clinic: The patient is instructed to follow-up with me in one week for suture removal andpathology results. Carson Allison MD * Rowan Shah LPN - 02/12/2022 5:14 PM EDT UNIVERSAL PROTOCOL / SAFETY CHECKLIST Procedure to be Performed: Excision of right hand skin lesion, left breast lesion Sign In: A Moment of CARE was completed. Personnel directly involved with the procedure wore the appropriate PPE (Personal Protective Equipment). Patient/Surrogate Stated/Verified: PATIENT VERIFIED(optional for EMERGENT procedures): Patient name, Date of , Relevant allergies and The intended procedure Time Out Communication: Intended patient and procedure match the source documents. Consent documented and matches the intended procedure. Relevant labs, photos, and/or imaging studies have been reviewed. No fire risk assessment and interventions applicable. No implant(s) inserted. Sign Out: SIGN OUT (optional for EMERGENT procedures): All specimen containers correctly labeled. Post-procedure follow-up management communicated and Plan of Care Visit completed when applicable. Rowan Shah LPN documented in this encounterH[facility]04-[facility]22 Instructions* Patient Instructions* Rowan Shah LPN - 02/12/2022 5:22 PM EDT The following instructions are important for you related to your office visit today with the [facility] General Surgeons. Instructions After SKIN EXCISION-SUTURES You can remove the dressing in two days. If the dressing becomes soaked or had significant drainage, the dressing should be changed. If there is minor bleeding from this skin edge, you should hold pressure on the incision until the bleeding stops. If there is continued bleeding, you should contact our office immediately. You do not need to leave a dressing on the wound after two days. If the wound shows signs of redness, inflammation, or purulent drainage, you should contact our office immediately. You should keep the wound dry for the first two days. After that time, you may wash the wound with gentle soap and water. The wound should not be immersed in a pool, bathtub, or even hot tub. We prefer to check the incision and remove the stitches in our office when ready. Please make an appointment to return to our office in 1 weeks. Please do not remove the stitches yourself without approval from our office. If you note any additional difficulties, questions, or concerns, you should contact our office immediately @ [phone] and ask to be transferred to the General Surgery department. documented in this encounterH[facility]04-19-2022 Nurse Note* Mirta De La Torre RN - 02/12/2022 4:36 PM EDT REVIEW OF SYSTEMS: General: The patient denies fatigue, denies weight loss, denies weight gain, denies feeling hot, and denies feelings of cold. Eyes: The patient denies glaucoma, denies eye injury/surgery, wears glasses or contacts. Ear/Nose/Throat: The patient denies allergies, denies hayfever, denies ear infections, and denies bloody noses. Cardiovascular: The patient denies chest pain, denies heart disease, denies high blood pressure,denies cardiac stent, denies prior heart attack, denies irregular heart beat, denies high cholesterol, denies poor circulation, denies heart failure, other cardiac issues, denies claudication, denies cold feet, denies peripheral arterial stent. Respiratory: The patient denies tuberculosis, denies pneumonia, denies frequent cough, denies pulmonary embolism, denies shortness of breath, and denies coughing up blood. Gastrointestinal: The patient denies difficulty swallowing, denies acid reflux, denies ulcers, denies vomiting, denies jaundice/hepatitis, NOTES gallbladder problems, denies black or tarry stools, denies hemorrhoids, denies bleeding from rectum, denies diverticulitis, NOTES constipation, denies diarrhea, denies loss of stool control, and denies hernias. Kidney/Bladder: The patient denies kidney stones, denies urine infections, and denies bloody urine. Skin: The patient denies a history of skin cancer, denies bleeding/changing moles, and denies a history of skin rash. Neurologic: The patient NOTES a history of epilepsy/convulsions, denies headaches, denies head/spinal injuries, and denies stroke/TIA. Psychiatric: The patient denies psychiatric medications, denies depression, and denies voices, denies substance abuse. Endocrine: The patient denies thyroid disorders, denies diabetes, and denies hormonal problems. Hematologic: The patient denies a history of bruising, denies bleeding, and denies anemia, denies blood clots. Infections: The patient denies a history of measles and mumps, denies rheumatic fever, and denies sexually transmitted diseases. Musculoskeletal: The patient denies back pain/injury, denies back problems, denies sciatica, deniesknee/foot trouble, denies arthritis, or denies gout. When was patient's last Mammogram screening? 2019 Last Colonoscopy:2020 Mirta De La Torre RN documented in [facility] encounterH[facility]12[facility] History of Past illness Narrative* Problem Noted Date Diagnosed Date Resolved Date Hematuria 10/16/2020 05/08/2023 Unspecified constipation 04/05/2008 Abdominal pain, unspecified site 04/05/2008 05/08/2023 Rash and other nonspecific skin eruption 04/05/2008 05/08/2023 documented as of this encounter (statuses as of 08/31/2023) [facility] History of Past illness Narrative* Problem Noted Date Diagnosed Date Resolved Date Hematuria 10/16/2020 05/08/2023 Unspecified constipation 04/05/2008 Abdominal pain, unspecified site 04/05/2008 05/08/2023 Rash and other nonspecific skin eruption 04/05/2008 05/08/2023 documented as of this encounter (statuses as of 08/31/2023) [facility] note* Diagnosis Skin lesion- Primary Unspecified disorder of skin and subcutaneous tissue [facility] Diagnosis Encounter for screening mammogram for breast cancer documented in this encounter [facility] note* Diagnosis Boil of groin- Primary Superficial folliculitis Other specified disease of hair and hair follicles documented in this encounter [facility] note* Diagnosis Diarrhea, unspecified type- Primary Abdominal cramping Abdominal pain, unspecified site Urinary frequency documented in this encounter [facility] note* Diagnosis Diarrhea, unspecified type- Primary [facility]* Diagnosis 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, not specified as acute or chronic, 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 [facility]* Diagnosis Urinary frequency- Primary [facility]* Diagnosis Diarrhea, unspecified type- Primary Abdominal pain, unspecified abdominal location Pelvic pain [facility]* Diagnosis Pelvic pain in female- Primary Unspecified symptom associated with female genital organs [facility]* Diagnosis Pelvic pain [facility]* Diagnosis Diarrhea, unspecified type- Primary Fecal smearing [facility] Diagnosis Fecal smearing [facility] Diagnosis Full incontinence of feces- Primary Pelvic floor dysfunction in female [facility] Diagnosis Full incontinence of feces- Primary Pelvic floor dysfunction in female [facility]* Diagnosis Full incontinence of feces- Primary Pelvic floor dysfunction in female documented [facility]* Diagnosis Full incontinence of feces- Primary Pelvic floor dysfunction in female [facility]* Diagnosis Loose stools- Primary Abnormal feces Status post cholecystectomy Other acquired absence of organ Pelvic floor dysfunction in female Dyspepsia Dyspepsia and other specified disorders of function of stomach Nausea Nausea alone [facility]* Diagnosis Dyspepsia Dyspepsia and other specified disorders of function of stomach Nausea Nausea alone documented [facility]* Diagnosis Loose stools- Primary Abnormal feces documented [facility]* Diagnosis Full incontinence of feces- Primary Pelvic floor dysfunction in female [facility] Diagnosis Loose stools Abnormal feces [facility] Diagnosis Bloating symptom [R14.0 (ICD-10-CM)]- Primary Flatulence, eructation, and gas pain documented [facility]* Diagnosis Full incontinence of feces- Primary Left lower quadrant abdominal pain Diarrhea, unspecified type documented [facility]* Diagnosis Pain with urination- Primary Renal colic Vaginal odor Unspecified symptom associated with female genital organs Ovarian cyst, left Other and unspecified ovarian cyst documented in this encounter [facility] note* Diagnosis Pelvic floor dysfunction in female- Primary documented in this encounter [facility] note* Diagnosis Dysuria- Primary documented in this encounter [facility] note* Diagnosis Vaginal itching- Primary Pruritus of genital organs Vulvar lesion Other specified noninflammatory disorder of vulva and perineum Ovarian cyst, left Other and unspecified ovarian cyst documented in this encounter [facility] note* Diagnosis Ovarian cyst, left Other and unspecified ovarian cyst documented in this encounter [facility] note* Diagnosis Abnormal uterine bleeding (AUB)- Primary Menorrhagia with irregular cycle Excessive or frequent menstruation Endometrial polyp Polyp of corpus uteri documented in this encounter [facility] note* Diagnosis Encounter for screening mammogram for breast cancer documented in this encounter [facility] note* Diagnosis Diarrhea, unspecified type Generalized abdominal pain Abdominal pain, generalized documented in this encounter [facility] note* Diagnosis Encounter for gynecological examination (general) (routine) without abnormal findings Encounter for screening mammogram for breast cancer Dense breast tissue documented in this encounter [facility] note* Diagnosis Left lower quadrant abdominal pain documented in this encounter [facility] note* Diagnosis Acute cough- Primary Sinobronchitis Unspecified sinusitis (chronic) documented in this encounter [facility] note* Diagnosis Sore throat- Primary Acute pharyngitis Acute cough Sinus congestion Other diseases of nasal cavity and sinuses documented in this encounter [facility] for referral (narrative)* Diagnostic Procedure Only (Routine) - Pending Review Specialty Diagnoses / Procedures Referred By Jonny hernandez Referred To Contact [facility] Diagnoses Encounter for screening mammogram for breast cancer Procedures JULI SCREENING SCREENING MAMMOGRAPHY BI 2-VIEW BREAST INC CAD Mirella Zendejas MD [address] [place] [address] [facility] [address] [place] [id number] Referral ID Status Reason Start Date Expiration Date Visits Requested Visits Authorized [id number] Pending Review Auto-Generat ed Referral 06/05/2022 07/05/2023 1 1 [facility] for referral (narrative)* Outpatient Procedure (Routine) - Pending Review Specialty Diagnoses / Procedures Referred By Contac t Referred To Contact [facility] Diagnoses Fecal smearing Procedures ADULT [place] ANORECTAL MANOMETRY ANORECTAL MANOMETRY Dinah Hamilton PA-C [address] [place] [address] [facility] [address] [place] [address] Referral ID Status Reason Start Date Expiration Date Visits Requested Visits Authorized [id number] Pending Review Auto-Generat ed Referral 10/04/2022 10/04/2023 1 1 [facility] for referral (narrative)* Diagnostic Procedure Only (Routine) - Pending Review Specialty Diagnoses / Procedures Referred By Contac t Referred To Contact [facility] Diagnoses Dyspepsia Nausea Procedures NM GASTRIC EMPTYING SOLID GASTRIC EMPTYING STUDY Dinah Hamilton PA-C [address] [place] [address] [facility] [address] [place] [address] Referral ID Status Reason Start Date Expiration Date Visits Requested Visits Authorized [id number] Pending Review Auto-Generat ed Referral 11/12/2022 12/12/2023 1 1 [facility] for referral (narrative)* Diagnostic Procedure Only (Routine) - Closed Specialty Diagnoses / Procedures Referred By Contac t Referred To Contact [facility] Diagnoses Dyspepsia Nausea Procedures NM GASTRIC EMPTYING SOLID GASTRIC EMPTYING STUDY Dinah Hamilton PA-C [address] [place] [address] [facility] [address] [place] [address] Referral ID Status Reason Start Date Expiration Date V isits Requested Visits Authorized [id number] Closed Auto-Generat ed Referral Patient Cleared - Admin/Chairm an/Director advise to proceed 11/12/2022 12/12/2023 1 1 [facility] for referral (narrative)* Diagnostic Procedure Only (Routine) - Authorized Specialty Diagnoses / Procedures Referred By Jonny hernandez Referred To Contact [facility] Diagnoses Ovarian cyst, left Procedures PELVIC US WHI US PELVIC NONOBSTETRIC REAL-TIME IMAGE COMPLETE Shira Arreola APRN.[employer]IV[employer] [address] [place] [address] [facility] [place]Note 2] [address] [place] [address] Referral ID Status Reason Start Date Expiration Date Visits Requested Visits Authorized [id number] Authorized Auto-Generat ed Referral 04/22/2023 04/21/2024 1 1 [facility] Diagnostic Procedure Only (Routine) - Pending Review Specialty Diagnoses / Procedures Referred By Jonny hernandez Referred To Contact [facility] Diagnoses Encounter for screening mammogram for breast cancer Procedures JULI SCREENING SCREENING MAMMOGRAPHY BI 2-VIEW BREAST INC CAD Mirella Zendejas MD [address] [place] [address] [facility] [address] [place] [address] Referral ID Status Reason Start Date Expiration Date Visits Requested Visits Authorized [id number] Pending Review Auto-Generat ed Referral 05/07/2023 06/05/2024 1 1 [facility] for referral (narrative)* Diagnostic Procedure Only (Routine) - Closed Specialty Diagnoses / Procedures Referred By Jonny hernandez Referred To Contact [facility] Diagnoses Encounter for gynecological examination (general) (routine) without abnormal findings Encounter for screening mammogram for breast cancer Dense breast tissue Procedures JULI SCREENING W AMBER SCREENING DIGITAL BREAST TOMOSYNTHESIS BI SCREENING MAMMOGRAPHY BI 2-VIEW BREAST INC CAD Shira Arreola APRN.CNP [address] [place] [address] [facility] [address] [place] [address] Referral ID Status Reason Start Date Expiration Date V isits Requested Visits Authorized [id number] Closed Auto-Generate d Referral 05/08/2023 06/06/2024 1 1 [facility] for visit Narrative* Diagnostic Procedure Only (Routine) - Closed Specialty Diagnoses / Procedures Referred By Jonny t Referred To Contact [facility] Diagnoses Pelvic pain Procedures PELVIC US WHI US PELVIC NONOBSTETRIC REAL-TIME IMAGE COMPLETE Ada Galvan MD [address] [place] [address] [facility] [place]Note 2] [address] [place] [address] Referral ID Status Reason Start Date Expiration Date V isits Requested Visits Authorized [id number] Closed Auto-Generate d Referral 09/20/2022 10/26/2022 1 1 [facility] for visit Narrative* Diagnostic Procedure Only (Routine) - Closed Specialty Diagnoses / Procedures Referred By Jonny hernandez Referred To Contact [facility] Diagnoses Dyspepsia Nausea Procedures NM GASTRIC EMPTYING SOLID GASTRIC EMPTYING STUDY Dinah Hamilton PA-C [address] [place] [address] [facility] [address] [place] [address] Referral ID Status Reason Start Date Expiration Date V isits Requested Visits Authorized [id number] Closed Auto-Generat ed Referral Patient Cleared - Admin/Chairm an/Director advise to proceed 11/12/2022 12/12/2023 1 1 [facility] for visit Narrative* Diagnostic Procedure Only (Routine) - Closed Specialty Diagnoses / Procedures Referred By Jonny t Referred To Contact [facility] Diagnoses Encounter for gynecological examination (general) (routine) without abnormal findings Encounter for screening mammogram for breast cancer Dense breast tissue Procedures JULI SCREENING W AMBER SCREENING DIGITAL BREAST TOMOSYNTHESIS BI SCREENING MAMMOGRAPHY BI 2-VIEW BREAST INC CAD Shira Arreola, UPHOL[employer]S [employer]TER.[employer]IVITIES COACH [address] [place] [address] [facility] [address] [place] [address] Referral ID Status Reason Start Date Expiration Date V isits Requested Visits Authorized [id number] Closed Auto-Generate d Referral 05/08/2023 06/06/2024 1 1 [facility] Summary Purpose Family History No Family History Records FoundNo Family History Records Found Advance Directives No Advanced Directives Records FoundDocuments on File Type Date Recorded Patient Library Attendant Expl anation Advance Directive(s) 02/22/2021 12:52 PM Advance Directive(s) 02/22/2021 12:55 PM Advance Directive(s) 10/24/2020 8:07 AM Advance Directive(s) 10/04/2020 5:58 PM Procedure Findings Note HNO ID: [id number] Author: Pierre Her MD Service: Urogynecology Author Type: Physician Type: Brief Op Note Filed: 10/24/2020 9:51 AM Note Text: BRIEF OPERATIVE / PROCEDURE NOTE LOG ID: [id number] SURGERY/PROCEDURE DATE: 10/24/2020 INCISION/PROCEDURE START TIME: 9:20 AM INCISION CLOSE/PROCEDURE END TIME: 9:25 AM SURGEON(S)/PROCEDURALIST(S) AND TABLE SAW OPERATOR(S): Surgeon(s) and Role: * Emilee Her MD - Primary Physician Rental Manager: Bobbi Rodriguez (Pa) SURGERY/PROCEDURE(S): Diagnostic cystoscopy ANESTHESIA: Monitored Anesthesia Care FINDINGS: Normal bladder with no evidence of stones, masses or ulcerations Normal bilateral ureteral jets with good efflux Normal urethra ESTIMATED BLOOD LOSS: 0 ml SPECIMENS: None COMPLICATIONS: None PRE-OP/PRE-PROCEDURE DIAGNOSIS: Gross hematuria POST-OP/POST-PROCEDURE DIAGNOSIS: Same as Preop SIGNATURE: Emilee Her MD PATIENT NAME: Kaela Rolle DATE: October 24, 2020 TIME: 9:50 AM PAGER/CONTACT #: [phone] Reason for Referral Specialty Diagnoses / Procedures Referred By Jonny hernandez Referred To Contact Gastroenterology Diagnoses Diarrhea, unspecified type Abdominal pain, unspecified abdominal location Procedures CONSULT TO GASTROENTEROLOGY OFFICE/OUTPATIENT NEW HIGH MDM 60-74 MINUTES Ada Galvan MD [address] [place] [address] Referral ID Status Reason Start Date Expiration Date Visits Requested Visits Authorized [id number] Pending Review PCP Requested Referral 2 09/18/2023 1 1 Specialty Diagnoses / Procedures Referred By Contac t Referred To Contact [facility] Diagnoses Pelvic pain Procedures PELVIC US WHI US PELVIC NONOBSTETRIC REAL-TIME IMAGE COMPLETE Ada Galvan MD [address] [place] [address] [address] Referral ID Status Reason Start Date Expiration Date V isits Requested Visits Authorized [id number] Open Auto-Generate d Referral 09/18/2022 09/18/2023 1 1 Specialty Diagnoses / Procedures Referred By Contac t Referred To Contact [facility] Diagnoses Full incontinence of feces Pelvic floor dysfunction in female Procedures CONSULT TO PHYSICAL THERAPY PHYSICAL THERAPY EVALUATION HIGH COMPLEX 45 MINS Rudy Parish, JUHI.[employer]IV[employer]IES [employer] [address] [place] [address] [address] Referral ID Status Reason Start Date Expiration Date Visits Requested Visits Authorized [id number] Pending Review Auto-Generat ed Referral 2 10/14/2023 1 1 Specialty Diagnoses / Procedures Referred By Contac t Referred To Contact [facility] Diagnoses Full incontinence of feces Pelvic floor dysfunction in female Procedures PT REHAB FOLLOW UP ORDER THERAPEUTIC EXERCISES RE, EA 15 MIN. Abeil Velarde, PT [address] [place] [address] [address] Referral ID Status Reason Start Date Expiration Date Visits Requested Visits Authorized [id number] Pending Review PCP Requested Referral Auto-Generate d Referral 01/23/2023 1 1 Specialty Diagnoses / Procedures Referred By Contac t Referred To Contact CT [facility] Diagnoses Left lower quadrant abdominal pain Procedures CT ABD/PEL W IVCON CT ABD & PELVIS W/CONTRAST Rudy Parihs, UPH[employer]S [employer]TER.[employer]IV[employer]IES COACH [address] [place] [address] Ct Imaging Referral ID Status Reason Start Date Expiration Date Visits Requested Visits Authorized [id number] Pending Review Auto-Generat ed Referral 12/20/2022 01/19/2024 1 1 Specialty Diagnoses / Procedures Referred By Contac t Referred To Contact CT IMAGING Diagnoses Diarrhea, unspecified type Generalized abdominal pain Procedures CT ABD/PEL W IVCON CT ABD & PELVIS W/CONTRAST Melanie Santa, U[employer] S[employer]TER.[employer]IV[employer]IES COACH [address] [place] [address] Ct Imaging [place] [address] Referral ID Status Reason Start Date Expiration Date V isits Requested Visits Authorized [id number] Closed Auto-Generate d Referral 09/02/2022 10/02/2023 1 1 Specialty Diagnoses / Procedures Referred By Contac t Referred To Contact CT [facility] Diagnoses Left lower quadrant abdominal pain Procedures CT ABD/PEL W IVCON CT ABD & PELVIS W/CONTRAST Rudy Parish, U[employer]S SORTER.K[employer] ACTIVITIES COACH [address] [place] [address] Ct Imaging [place] [address] Referral ID Status Reason Start Date Expiration Date V isits Requested Visits Authorized [id number] Closed Auto-Generate d Referral 12/20/2022 01/19/2024 1 1 Additional Source Comments INFORMATION SOURCE (unrecogn ized section and content) DATE CREATED AUTHOR AUTHOR'S ORGANIZ ATION 11/06/2023 [facility] Source Comments (unrecognize d section and content) In the event this informatio n is protected by the Federal Confidentiality of Alcohol and Drug Abuse Patient Records regulations: The Federal rules restrict any use of the information to criminally investigate or prosecute any alcohol or drug abuse patient.[facility] event this information is protected by the Federal Confidentiality of Alcohol and Drug Abuse Patient Records regulations: The Federal rules restrict any use of the information to criminally investigate or prosecute any alcohol or drug abuse patient.[facility] the event this information is protected by the Federal Confidentiality of Alcohol and Drug Abuse Patient Records regulations: The Federal rules restrict any use of the information to criminally investigate or prosecute any alcohol or drug abuse patient.[facility] the event this information is protected by the Federal Confidentiality of Alcohol and Drug Abuse Patient Records regulations: The Federal rules restrict any use of the information to criminally investigate or prosecute any alcohol or drug abuse patient.[facility] the event this information is protected by the Federal Confidentiality of Alcohol and Drug Abuse Patient Records regulations: The Federal rules restrict any use of the information to criminally investigate or prosecute any alcohol or drug abuse patient.[facility] the event this information is protected by the Federal Confidentiality of Alcohol and Drug Abuse Patient Records regulations: The Federal rules restrict any use of the information to criminally investigate or prosecute any alcohol or drug abuse patient.[facility] the event this information is protected by the Federal Confidentiality of Alcohol and Drug Abuse Patient Records regulations: The Federal rules restrict any use of the information to criminally investigate or prosecute any alcohol or drug abuse patient.[facility] the event this information is protected by the Federal Confidentiality of Alcohol and Drug Abuse Patient Records regulations: The Federal rules restrict any use of the information to criminally investigate or prosecute any alcohol or drug abuse patient.[facility] the event this information is protected by the Federal Confidentiality of Alcohol and Drug Abuse Patient Records regulations: The Federal rules restrict any use of the information to criminally investigate or prosecute any alcohol or drug abuse patient.[facility] the event this information is protected by the Federal Confidentiality of Alcohol and Drug Abuse Patient Records regulations: The Federal rules restrict any use of the information to criminally investigate or prosecute any alcohol or drug abuse patient.[facility] the event this information is protected by the Federal Confidentiality of Alcohol and Drug Abuse Patient Records regulations: The Federal rules restrict any use of the information to criminally investigate or prosecute any alcohol or drug abuse patient.[facility] the event this information is protected by the Federal Confidentiality of Alcohol and Drug Abuse Patient Records regulations: The Federal rules restrict any use of the information to criminally investigate or prosecute any alcohol or drug abuse patient.[facility] the event this information is protected by the Federal Confidentiality of Alcohol and Drug Abuse Patient Records regulations: The Federal rules restrict any use of the information to criminally investigate or prosecute any alcohol or drug abuse patient.[facility] the event this information is protected by the Federal Confidentiality of Alcohol and Drug Abuse Patient Records regulations: The Federal rules restrict any use of the information to criminally investigate or prosecute any alcohol or drug abuse patient.[facility] the event this information is protected by the Federal Confidentiality of Alcohol and Drug Abuse Patient Records regulations: The Federal rules restrict any use of the information to criminally investigate or prosecute any alcohol or drug abuse patient.[facility] the event this information is protected by the Federal Confidentiality of Alcohol and Drug Abuse Patient Records regulations: The Federal rules restrict any use of the information to criminally investigate or prosecute any alcohol or drug abuse patient.[facility] the event this information is protected by the Federal Confidentiality of Alcohol and Drug Abuse Patient Records regulations: The Federal rules restrict any use of the information to criminally investigate or prosecute any alcohol or drug abuse patient.[facility] the event this information is protected by the Federal Confidentiality of Alcohol and Drug Abuse Patient Records regulations: The Federal rules restrict any use of the information to criminally investigate or prosecute any alcohol or drug abuse patient.[facility] the event this information is protected by the Federal Confidentiality of Alcohol and Drug Abuse Patient Records regulations: The Federal rules restrict any use of the information to criminally investigate or prosecute any alcohol or drug abuse patient.[facility] Hospital[facility] the event this information is protected by the Federal Confidentiality of Alcohol and Drug Abuse Patient Records regulations: The Federal rules restrict any use of the information to criminally investigate or prosecute any alcohol or drug abuse patient.[facility] HospitalIn the event this information is protected by the Federal Confidentiality of Alcohol and Drug Abuse Patient Records regulations: The Federal rules restrict any use of the information to criminally investigate or prosecute any alcohol or drug abuse patient.[facility] Hospital[facility] the event this information is protected by the Federal Confidentiality of Alcohol and Drug Abuse Patient Records regulations: The Federal rules restrict any use of the information to criminally investigate or prosecute any alcohol or drug abuse patient.[facility] Hospital[facility] the event this information is protected by the Federal Confidentiality of Alcohol and Drug Abuse Patient Records regulations: The Federal rules restrict any use of the information to criminally investigate or prosecute any alcohol or drug abuse patient.[facility] the event this information is protected by the Federal Confidentiality of Alcohol and Drug Abuse Patient Records regulations: The Federal rules restrict any use of the information to criminally investigate or prosecute any alcohol or drug abuse patient.[facility] the event this information is protected by the Federal Confidentiality of Alcohol and Drug Abuse Patient Records regulations: The Federal rules restrict any use of the information to criminally investigate or prosecute any alcohol or drug abuse patient.[facility] the event this information is protected by the Federal Confidentiality of Alcohol and Drug Abuse Patient Records regulations: The Federal rules restrict any use of the information to criminally investigate or prosecute any alcohol or drug abuse patient.[facility] the event this information is protected by the Federal Confidentiality of Alcohol and Drug Abuse Patient Records regulations: The Federal rules restrict any use of the information to criminally investigate or prosecute any alcohol or drug abuse patient.[facility] the event this information is protected by the Federal Confidentiality of Alcohol and Drug Abuse Patient Records regulations: The Federal rules restrict any use of the information to criminally investigate or prosecute any alcohol or drug abuse patient.[facility] HospitalIn the event this information is protected by the Federal Confidentiality of Alcohol and Drug Abuse Patient Records regulations: The Federal rules restrict any use of the information to criminally investigate or prosecute any alcohol or drug abuse patient.[facility] HospitalIn the event this information is protected by the Federal Confidentiality of Alcohol and Drug Abuse Patient Records regulations: The Federal rules restrict any use of the information to criminally investigate or prosecute any alcohol or drug abuse patient.[facility] HospitalIn the event this information is protected by the Federal Confidentiality of Alcohol and Drug Abuse Patient Records regulations: The Federal rules restrict any use of the information to criminally investigate or prosecute any alcohol or drug abuse patient.[facility] HospitalIn the event this information is protected by the Federal Confidentiality of Alcohol and Drug Abuse Patient Records regulations: The Federal rules restrict any use of the information to criminally investigate or prosecute any alcohol or drug abuse patient.[facility] HospitalIn the event this information is protected by the Federal Confidentiality of Alcohol and Drug Abuse Patient Records regulations: The Federal rules restrict any use of the information to criminally investigate or prosecute any alcohol or drug abuse patient.[facility] HospitalIn the event this information is protected by the Federal Confidentiality of Alcohol and Drug Abuse Patient Records regulations: The Federal rules restrict any use of the information to criminally investigate or prosecute any alcohol or drug abuse patient.[facility] HospitalIn the event this information is protected by the Federal Confidentiality of Alcohol and Drug Abuse Patient Records regulations: The Federal rules restrict any use of the information to criminally investigate or prosecute any alcohol or drug abuse patient.[facility] HospitalIn the event this information is protected by the Federal Confidentiality of Alcohol and Drug Abuse Patient Records regulations: The Federal rules restrict any use of the information to criminally investigate or prosecute any alcohol or drug abuse patient.[facility] HospitalIn the event this information is protected by the Federal Confidentiality of Alcohol and Drug Abuse Patient Records regulations: The Federal rules restrict any use of the information to criminally investigate or prosecute any alcohol or drug abuse patient.[facility] HospitalIn the event this information is protected by the Federal Confidentiality of Alcohol and Drug Abuse Patient Records regulations: The Federal rules restrict any use of the information to criminally investigate or prosecute any alcohol or drug abuse patient.[facility] HospitalIn the event this information is protected by the Federal Confidentiality of Alcohol and Drug Abuse Patient Records regulations: The Federal rules restrict any use of the information to criminally investigate or prosecute any alcohol or drug abuse patient.[facility] HospitalIn the event this information is protected by the Federal Confidentiality of Alcohol and Drug Abuse Patient Records regulations: The Federal rules restrict any use of the information to criminally investigate or prosecute any alcohol or drug abuse patient.[facility] HospitalIn the event this information is protected by the Federal Confidentiality of Alcohol and Drug Abuse Patient Records regulations: The Federal rules restrict any use of the information to criminally investigate or prosecute any alcohol or drug abuse patient.[facility] HospitalIn the event this information is protected by the Federal Confidentiality of Alcohol and Drug Abuse Patient Records regulations: The Federal rules restrict any use of the information to criminally investigate or prosecute any alcohol or drug abuse patient.[facility] HospitalIn the event this information is protected by the Federal Confidentiality of Alcohol and Drug Abuse Patient Records regulations: The Federal rules restrict any use of the information to criminally investigate or prosecute any alcohol or drug abuse patient.[facility] HospitalIn the event this information is protected by the Federal Confidentiality of Alcohol and Drug Abuse Patient Records regulations: The Federal rules restrict any use of the information to criminally investigate or prosecute any alcohol or drug abuse patient.[facility] HospitalIn the event this information is protected by the Federal Confidentiality of Alcohol and Drug Abuse Patient Records regulations: The Federal rules restrict any use of the information to criminally investigate or prosecute any alcohol or drug abuse patient.[facility] HospitalIn the event this information is protected by the Federal Confidentiality of Alcohol and Drug Abuse Patient Records regulations: The Federal rules restrict any use of the information to criminally investigate or prosecute any alcohol or drug abuse patient.[facility] HospitalIn the event this information is protected by the Federal Confidentiality of Alcohol and Drug Abuse Patient Records regulations: The Federal rules restrict any use of the information to criminally investigate or prosecute any alcohol or drug abuse patient.[facility] HospitalIn the event this information is protected by the Federal Confidentiality of Alcohol and Drug Abuse Patient Records regulations: The Federal rules restrict any use of the information to criminally investigate or prosecute any alcohol or drug abuse patient.[facility] HospitalIn the event this information is protected by the Federal Confidentiality of Alcohol and Drug Abuse Patient Records regulations: The Federal rules restrict any use of the information to criminally investigate or prosecute any alcohol or drug abuse patient.[facility] HospitalIn the event this information is protected by the Federal Confidentiality of Alcohol and Drug Abuse Patient Records regulations: The Federal rules restrict any use of the information to criminally investigate or prosecute any alcohol or drug abuse patient.[facility] HospitalIn the event this information is protected by the Federal Confidentiality of Alcohol and Drug Abuse Patient Records regulations: The Federal rules restrict any use of the information to criminally investigate or prosecute any alcohol or drug abuse patient.[facility] HospitalIn the event this information is protected by the Federal Confidentiality of Alcohol and Drug Abuse Patient Records regulations: The Federal rules restrict any use of the information to criminally investigate or prosecute any alcohol or drug abuse patient.[facility] HospitalIn the event this information is protected by the Federal Confidentiality of Alcohol and Drug Abuse Patient Records regulations: The Federal rules restrict any use of the information to criminally investigate or prosecute any alcohol or drug abuse patient.[facility] HospitalIn the event this information is protected by the Federal Confidentiality of Alcohol and Drug Abuse Patient Records regulations: The Federal rules restrict any use of the information to criminally investigate or prosecute any alcohol or drug abuse patient.[facility] HospitalIn the event this information is protected by the Federal Confidentiality of Alcohol and Drug Abuse Patient Records regulations: The Federal rules restrict any use of the information to criminally investigate or prosecute any alcohol or drug abuse patient.[facility] HospitalIn the event this information is protected by the Federal Confidentiality of Alcohol and Drug Abuse Patient Records regulations: The Federal rules restrict any use of the information to criminally investigate or prosecute any alcohol or drug abuse patient.[facility] HospitalIn the event this information is protected by the Federal Confidentiality of Alcohol and Drug Abuse Patient Records regulations: The Federal rules restrict any use of the information to criminally investigate or prosecute any alcohol or drug abuse patient.[facility] Reason for Visit (unrecogniz ed section and content) Specialty Diagnoses / Procedures Referred By Jonny hernandez Referred To Contact CT IMAGING Diagnoses Diarrhea, unspecified type Generalized abdominal pain Procedures CT ABD/PEL W IVCON CT ABD & PELVIS W/CONTRAST Melanie Santa, UPHOLSTERY PARTS SORTER.[facility] [address] [place] [address] [place] [address] Referral ID Status Reason Start Date Expiration Date V isits Requested Visits Authorized [id number] Closed Auto-Generate d Referral 09/02/2022 10/02/2023 1 1 Reason Comments Physical Therapy Specialty Diagnoses / Procedures Referred By Jonny hernandez Referred To Contact Diagnoses office visit Procedures office visit [facility] Referral ID Status Reason Start Date Expiration Date V isits Requested Visits Authorized [id number] Closed Patient Cleared - Qualified 100% FAS 10/07/2022 01/05/2023 99 99 Reason Comments TRACTOR TRAILER MECHANIC Ultrasound Specialty Diagnoses / Procedures Referred By Jonny hernandez Referred To Contact EDUCATIONAL RECRUITER Diagnoses painful vaginal lump - needed after 330 Procedures EST WHI PATIENT Self Ada Galvan MD [address] [place] [address] Referral ID Status Reason Start Date Expiration Date V isits Requested Visits Authorized [id number] Authorized 10/27/2021 10/26/2022 99 99 Reason Comments Consult mole removal Procedure Excision of right sheriff nd skin lesion, left breast lesion Specialty Diagnoses / Procedures Referred By Jonny hernandez Referred To Contact General Surgery / GENERAL SURGERY Diagnoses Consult/mole on right hand, per patient request she wants only Dr. Allison Procedures NEW DDI PATIENT Carson Allison MD [address] [place] [address] Carson Allison MD [address] [place] [address] Referral ID Status Reason Start Date Expiration Date Visits Re quested Visits Authorized [id number] Closed 02/12/2022 05/13/2022 1 1 Reason Comments Vaginal Problem Reason Comments Patient Update Reason Comments Diarrhea Pt states clear liqu id foam comes out of her , inc of this at times, upset stomach,tighness in stomach. Can eat no vomiting, anal area is sore and leaks. Specialty Diagnoses / Procedures Referred By Jonny hernandez Referred To Contact Family Medicine / FAMILY MEDICINE Diagnoses Generalized epilepsy (HCC) same day appt. Procedures OFFICE/OUTPATIENT ESTABLISHED MOD MDM 30-39 MIN 4C EST Mirella Zendejas MD [address] [place] [address] Melanie Greenwood APRN.[facility]IV[employer]IES CO[facility] [address] [place] [address] Referral ID Status Reason Start Date Expiration Date Visits Re quested Visits Authorized [id number] Closed 08/21/2022 10/26/2022 1 1 Reason Comments Results Reason Comments Pelvic Pain Specialty Diagnoses / Procedures Referred By Contac t Referred To Contact EDUCATIONAL RECRUITER Diagnoses painful vaginal lump - needed after 330 Procedures EST WHI PATIENT Self Ada Galvan MD [address] [place] [address] Reason Comments Diarrhea Has been going on fo r [address] 09/17/22 Stool 08/21/22 Specialty Diagnoses / Procedures Referred By Contact Referred To Contact Gastroenterology / GASTROENTEROLOGY Diagnoses Diarrhea, unspecified type Abdominal pain, unspecified abdominal location Procedures CONSULT TO GASTROENTEROLOGY OFFICE/OUTPATIENT NEW HIGH MDM 60-74 MINUTES OFFICE/OUTPATIENT NEW MODERATE MDM 45-59 MINUTES Ada Galvan MD [address] [place] [address] Dinah Hamilton PA-C [address] [facility] [address] Referral ID Status Reason Start Date Expiration Date V isits Requested Visits Authorized [id number] Closed Benefit Check Patient Cleared - Admin/Chairm an/Director advise to proceed 10/04/2022 10/04/2022 1 1 Reason Comments Manometry Referral ID Status Reason Start Date Expiration Date Visits Requested Visits Authorized [id number] Authorized Patient Cleared - Qualified 100% FAS 2 01/05/2023 99 99 Reason Comments Fecal Incontinence Specialty Diagnoses / Procedures Referred By Contac t Referred To Contact Diagnoses office visit Procedures office visit [facility] Reason Comments Patient Question Reason Comments PT Eval Specialty Diagnoses / Procedures Referred By Contac t Referred To Contact [facility] Diagnoses Full incontinence of feces Pelvic floor dysfunction in female Procedures CONSULT TO PHYSICAL THERAPY PHYSICAL THERAPY EVALUATION HIGH COMPLEX 45 MINS Rudy Parish APRN.[facility]IDS ACTIVITIES COACH [address] [place] [address] [facility] [address] [place] [address] Referral ID Status Reason Start Date Expiration Date V isits Requested Visits Authorized [id number] Closed Auto-Generate d Referral 10/14/2022 10/25/2022 60 60 Reason Comments Recheck Concerned with Bile from having Gallbladder removed, Full feeling quickly, gas, belching, Nausea Referral ID Status Reason Start Date Expiration Date Visits Requested Visits Authorized [id number] Authorized Patient Cleared - Qualified 100% FAS Financial Clearance Required - Self Pay 01/05/2023 99 99 Referral ID Status Reason Start Date Expiration Date V isits Requested Visits Authorized [id number] Closed Patient Cleared - Qualified 100% FAS Financial Clearance Required - Self Pay 10/07/2022 01/05/2023 99 99 Reason Comments testing update Reason Comments Follow Up Reason Comments Opened In Error Reason Comments Appointment Orders Reason Comments Breath Hydrogen Test Reason Comments Appointment Cancelled Reason Comments Follow Up Fecal Incontinence Reason Comments Urinary Problem Reason Comments UTI Reason Comments Medication Problem Reason Comments Vaginal Problem Reason Comments Insurance Authorization Reason Comments Ovarian Cyst Specialty Diagnoses / Procedures Referred By Contac t Referred To Contact [facility] Diagnoses Ovarian cyst, left Procedures PELVIC US WHI US PELVIC NONOBSTETRIC REAL-TIME IMAGE COMPLETE Shira Arreola, UPHOLSTERY PARTS SORTER.[facility]IDS ACTIVITIES COACH [address] [place] [address] [facility] [place]Note 2] [address] [place] [address] Referral ID Status Reason Start Date Expiration Date V isits Requested Visits Authorized [id number] Closed Auto-Generate d Referral 04/22/2023 04/21/2024 1 1 Reason Comments Pre-Op Exam Specialty Diagnoses / Procedures Referred By Contac t Referred To Contact CT IMAGING Diagnoses Left lower quadrant abdominal pain Procedures CT ABD/PEL W IVCON CT ABD & PELVIS W/CONTRAST Rudy Parish, UPHOLSTERY [employer]S SORTER.[facility] ACTIVITIES COACH [address] [place] [address] [place] [address] Referral ID Status Reason Start Date Expiration Date V isits Requested Visits Authorized [id number] Closed Auto-Generate d Referral 12/20/2022 01/19/2024 1 1 Reason Comments Cough Chest congestion, wh eeze, dry cough, chest pressure x 2 weeks sore throat Reason Comments Medication Problem Requesting different cough medication Reason Comments Cough Sore Throat Care Teams (unrecognized sec tion and content) Voice Engineer Relationship Specialty Start Date End Date Mirella Zendejas MD [address] [facility] [place] [address] PCP - General Internal Medicine 03/11/11 Voice Engineer Relationship Specialty Start Date End Date Mirella Zendejas MD [address] [place] [address], [place] [address] PCP - General Internal Medicine 03/11/11 Voice Engineer Relationship Specialty Start Date End Date Mirella Zendejas MD [address] [place] [address], [place] [address] PCP - General Internal Medicine 03/11/11 Voice Engineer Relationship Specialty Start Date End Date Mirella Zendejas MD [address] [place] [address] [place] [address] PCP - General Internal Medicine 03/11/11 Voice Engineer Relationship Specialty Start Date End Date Mirella Zendejas MD [address] [place] [address], [place] [address] PCP - General Internal Medicine 03/11/11 Voice Engineer Relationship Specialty Start Date End Date Mirella Zendejas MD [address] [place] [address] [place] [address] PCP - General Internal Medicine 03/11/11 Voice Engineer Relationship Specialty Start Date End Date Mirella Zendejas MD [address] [place] [address], [place] [address] PCP - General Internal Medicine 03/11/11 Voice Engineer Relationship Specialty Start Date End Date Mirella Zendejas MD [address] [place] [address], [place] [address] PCP - General Internal Medicine 03/11/11 Voice Engineer Relationship Specialty Start Date End Date Mirella Zendejas MD [facility] [place] [address] PCP - General Internal Medicine 03/11/11 Voice Engineer Relationship Specialty Start Date End Date Mirella Zendejas MD [address] [place] [address], [place] [address] PCP - General Internal Medicine 03/11/11 Voice Engineer Relationship Specialty Start Date End Date Mirella Zendejas MD [address] [place] [address], [place] [address] PCP - General Internal Medicine 03/11/11 Voice Engineer Relationship Specialty Start Date End Date Mirella Zendejas MD [address] [place] [address], [place] [address] PCP - General Internal Medicine 03/11/11 Voice Engineer Relationship Specialty Start Date End Date Mirella Zendejas MD [address] [place] [address], [place] [address] PCP - General Internal Medicine 03/11/11 Voice Engineer Relationship Specialty Start Date End Date Mirella Zendejas MD [address] [place] [address], [place] [address] PCP - General Internal Medicine 03/11/11 Voice Engineer Relationship Specialty Start Date End Date Mirella Zendejas MD [address] [place] [address], [place] [address] PCP - General Internal Medicine 03/11/11 Voice Engineer Relationship Specialty Start Date End Date Mirella Zendejas MD [address] [place] [address], [place] [address] PCP - General Internal Medicine 03/11/11 Voice Engineer Relationship Specialty Start Date End Date Mirella Zendejas MD [address] [place] [address], [place] [address] PCP - General Internal Medicine 03/11/11 Voice Engineer Relationship Specialty Start Date End Date Mirella Zendejas MD [address] [facility] [place] [address] PCP - General Internal Medicine 03/11/11 Voice Engineer Relationship Specialty Start Date End Date Mirella Zendejas MD [address] [facility] [place] [address] PCP - General Internal Medicine 03/11/11 Voice Engineer Relationship Specialty Start Date End Date Mirella Zendejas MD [address] [facility] [place] [address] PCP - General Internal Medicine 03/11/11 Voice Engineer Relationship Specialty Start Date End Date Mirella Zendejas MD [address] [place] [address] PCP - General Internal Medicine 03/11/11 Voice Engineer Relationship Specialty Start Date End Date Mirella Zendejas MD [address] [facility] [place] [address] PCP - General Internal Medicine 03/11/11 Voice Engineer Relationship Specialty Start Date End Date Mirella Zendejas MD [address] [facility] [place] [address] PCP - General Internal Medicine 03/11/11 Voice Engineer Relationship Specialty Start Date End Date Mirella Zendejas MD [address] [facility] [place] [address] PCP - General Internal Medicine 03/11/11 Voice Engineer Relationship Specialty Start Date End Date Mirella Zendejas MD [address] [facility] [place] [address] PCP - General Internal Medicine 03/11/11 Voice Engineer Relationship Specialty Start Date End Date Mirella Zendejas MD [address] [facility] [place] [address] PCP - General Internal Medicine 03/11/11 Voice Engineer Relationship Specialty Start Date End Date Mirella Zendejas MD [address] [facility] [place] [address] PCP - General Internal Medicine 03/11/11 Voice Engineer Relationship Specialty Start Date End Date Mirella Zendejas MD [address] [facility], [place] [address] PCP - General Internal Medicine 03/11/11 Voice Engineer Relationship Specialty Start Date End Date Mirella Zendejas MD [address] [facility], [place] [address] PCP - General Internal Medicine 03/11/11 FOR RECORDS PERTAINING TO PATIENTS WHO ARE OR HAVE BEEN ENROLLED IN A CHEMICAL DEPENDENCY/SUBSTANCEABUSE PROGRAM, SOME INFORMATION MAY BE OMITTED. This clinical summary was aggregated from multiple sources. Caution should be exercised in using it in the provision of clinical care. This summary normalizes information from multiple sources, and as a consequence, information in this document may materially change the coding, format and clinical context of patient data. In addition, data may be omitted in some cases. CLINICAL DECISIONS SHOULD BE BASED ON THE PRIMARY CLINICAL RECORDS. [employer] [facility]. provides no warranty or guarantee of the accuracy or completeness of information in this document.
[2023-11-13 07:08] LABS: Internal QC Validated? YES +Cl - CLEAR BKGD; Pregnancy, Urine Negative Negative
[2023-11-13] MEDS: Lactated Ringers 1,000 ML 15 ML IV ×2 (07:18→09:09)
--- NOTE | 2023-11-13 08:02 | DCINST_ITS ---
Discharge Instructions Diet Discharge Diet: No restrictions Activity May resume sexual activity in: 1 week Dressing / Incision Call your doctor if you observe: Fever of 101 or Higher, Inability to urinate, Using more than 1 pad per hour and Uncontrolled pain Follow Up Care Please Follow Up With: Ada Lama MD When: 1-2 weeks post OP if you need an appointment please call [phone] Test Results: Test results from this visit will be discussed in further detail at your follow- up appointment, if applicable. Discharge Plan Admission Attending Provider: Ada Lama Primary Care Provider: Maya Owens Discharge Orders/Prescriptions Prescriptions: No Action divalproex [Depakote] 500 mg tablet,delayed release (DR/EC) 500 mg PO DAILY divalproex [Depakote] 250 mg tablet,delayed release (DR/EC) 250 mg PO QHS Referrals / Follow Up: Maya Owens MD [Primary Care Provider] - Disposition Disposition (needs filled in before D/C Order can be placed): Home, Self Care
--- NOTE | 2023-11-13 08:35 | EMB_PTH ---
PATHOLOGY RESULTS PATIENT: KAELA MARTINEZ [place] [facility] [place][id number] AGE/SX: 43/F ROOM: RE11/13/[address]: Dr. Ada Salas MD : 1980 BED: DIS: 11/13/2023 SPEC #: [id number] RECD: 11/13/23 11:43 STATUS: LELAND SALINAS #: [id number] GRAEME: 11/13/23 08:[address]: Ada Salas DEPT: SURGICAL PATHOLOGY RECD BY: Yazmin Garcia ENTERED: 11/13/23 11:43 SP TYPE: ENDOM BX/C OTHR DR: Dr. Maya Owens MD Tissues: Endometrium, NOS Procedures: Surgery Specimen Level IV HEADER OPERATION: Hysteroscopy, D & C Symphion, Venecia ablation PRE-OP DIAGNOSIS: Abnormal uterine bleeding, endometrial polyps, endometriosis TISSUE SUBMITTED: Endometrial curettings and polyp MICROSCOPIC DIAGNOSIS Endometrial curettings and polyp, dilation and curettage: Proliferative endometrium. Fragments of myometrium. Fragments of benign ecto- and endocervical mucosa. JAMES:patricia 11/14/2023 MICROSCOPIC DESCRIPTION Slides are reviewed. GROSS DESCRIPTION Received in fixative is one container labeled with the patient's name and designated endometrial curettings and polyp. The specimen consists of multiple irregular fragments of hansen-pink soft tissue that in aggregate measure 3.0 x 2.5 x 0.3 cm. The specimen is totally submitted in one cassette. / JAMES:patricia 11/13/2023 TC:5 CPT: 97967
--- NOTE | 2023-11-13 09:45 | PCM.OPRPT ---
Report of Operation Date of Procedure: 11/13/23 Pre-Operative Diagnosis: AUB, endometrial polyps Post-Operative Diagnosis: Same Surgery/Procedure Performed:: hysteroscopy, D&C, polypectomy with symphion. Venecia endometrial ablation Description of Surgical Findings:: endometrial polyps noted. Venecia ablation completed for 120 seconds. Surgeon: Ada Lama bonding equipment operator: None (Jame Escalante [id number]) Type of Anesthesia: MAC Special Medications: none Specimen's removed: endometrial currettings and endometrial polyp Drains: none Estimated Blood Loss (mL): <5cc Fluids Replaced: 800 Description of Procedure: After informed consent was obtained patient taken to the operating room she is placed in supine position she is given anesthesia simply self insert she is prepped draped normal sterile fashion. Bladder was drained prior to the start of the procedure. At this time the weighted speculum was placed the posterior fornix of the vagina then a single-tooth tenaculum was used to grasp the anterior lip of the cervix. At this time the uterus was sounded to approximately 7 cm the endocervical canal sounded to 3 cm. Next cervix was dilated in incremental fashion. Once adequate dilatation was achieved the hysteroscope was inserted using normal saline as distention medium. On hysteroscopy there 2 endometrial polylps noted. Both tubal ostia were visualized. At this time symphion resecting device used to obtain endometrial curettings and to perform polylpectomy. Careful attention to no breach endometrium. tissue will be sent to pathology for evaluation. At this time the Venecia device was opened. The Venecia was set at 4 cm. The device was activated. Prior to activation the field test was performed and cavity was intact. The device was then fired and activated for 120 seconds. Once the 120 seconds was completed the device was removed intact and the tenaculum was removed. Good hemostasis was appreciated. Weighted speculum was removed. Vaginal sweep was performed is negative. There were no complications. Anticipated normal postoperative course for this patient. Instrument and lap count were correct ?2. Fluid deficit was 500cc. Grafts/Implants Used: none Procedure Start Time: 08:22 Procedure Stop Time: 08:39 Complications none Admit VTE Documentation VTE Present on Admission: Yes VTE Mechan Device Prophylaxis: SCD's VTE Pharm Prophylaxis ordered?: No Reason prophylaxis not ordered:: Procedure Not Indicated
== END 2023-11-13 11:33 | disposition home or self-care (01) ==
LOC: SDC 06:50 → AC 06:51
PROVIDERS: PCP Internal Medicine; Referring Provider Obstetrics & Gynecology; Visit Provider Obstetrics & Gynecology
PROC: 0UB98ZZ Excision of Uterus, Via Natural or Artificial Opening Endoscopic (ICD-10-PCS; CPT 58558; principal; 2023-11-13 08:20)
DX: N84.0 Polyp of corpus uteri (principal); N93.9 Abnormal uterine and vaginal bleeding, unspecified
CPT/HCPCS: 58563; 00952; 81025; 88305; J7120; J2405

== ENCOUNTER → 2024-02-03 | Outpatient (CLI) | payer MEDICAID, SELFPAY ==
[2024-02-03 09:42] LABS: Hematocrit 46.1 % (37-47); Hemoglobin 15.3 g/dL (12.0-15.0); Mean Corp Hgb Conc 33.2 g/dL (32-36); Mean Corpuscular Hgb 32.3 pg (27.0-32.0); Mean Corpuscular Volume 97.3 fL (81-99); Platelet Count 232 K/mm3 (150-450); RBC Distribution Width CV 12.5 % (11.6-14.6); RBC Distribution Width SD 45.1 fl (35.1-43.9); Red Blood Count 4.74 M/mm3 (4.2-5.4); White Blood Count 6.1 K/mm3 (4.4-11.0)
[2024-02-03 14:21] LABS: Valproic Acid (Depakene) Level 50 ug/mL (50-100)
[2024-02-03 14:25] LABS: ALB/GLOB Ratio 0.9 RATIO (0.9-2.4); AST(SGOT) 19 U/L (15-37); Alanine Aminotransfer ALT/SGPT 22 U/L (13-56); Albumin, Serum 3.9 g/dL (3.2-5.0); Alkaline Phosphatase 24 U/L (45-117); Anion Gap 4 (5-15); BUN 13 mg/dL (7-18); BUN/Creat Ratio 15.9 RATIO (10-20); Calcium,Total 9.5 mg/dL (8.5-10.1); Chloride 105 mmol/L (98-107); Creatinine, Serum 0.82 mg/dL (0.55-1.02); EST Glomerular Filtration Rate 81 mL/min (>60); Est Glom Filt Rate - Afr Amer 98 mL/min (>60); Globulin 4.3 g/dL (2.2-4.2); Glucose 95 mg/dL (74-106); Potassium 4.1 mmol/L (3.5-5.1); Protein, Total 8.2 g/dL (6.4-8.2); Sodium Level 136 mmol/L (136-145)
== END | disposition home or self-care (01) ==
LOC: LAB 09:26
PROVIDERS: PCP Internal Medicine; Referring Provider Psychiatry & Neurology Clinical Neurophysiology; Visit Provider Psychiatry & Neurology Clinical Neurophysiology
DX: G40.409 Other generalized epilepsy and epileptic syndromes, not intractable, without status epilepticus (principal)
CPT/HCPCS: 36415; 80053; 80164; 85027